=== PATIENT | female | born 1935 | race Caucasian/White ===

== ENCOUNTER 2017-02-26 02:14 | Emergency (ER) | payer MEDICARE, BC ==
[2017-02-26 02:21] VITALS: BP 129/81
[2017-02-26] MEDS ORDERED: Sodium Chloride 0.9% 10 ML Syringe FLUSH PRN (02:28)
[2017-02-26] MEDS ORDERED: Diltiazem 25 MG/5 ML SDV IVPUSH ONE (02:29)
[2017-02-26] MEDS ORDERED: Diltiazem 125 MG in Sodium Chloride 0.9% 100 ML IV SCH (02:30)
[2017-02-26] MEDS ORDERED: Sodium Chloride 0.9% 1,000 ML IV SCH (02:30)
--- NOTE | 2017-02-26 02:30 | EDM.PDOC ---
ED HPI GENERAL MEDICAL PROBLEM - General Chief Complaint: Cardiovascular Problem Stated Complaint: [facility] Time Seen by Provider: 02/26/17 02:20 Source of Information: Reports: Patient, EMS History Limitations: Reports: No Limitations - History of Present Illness INITIAL COMMENTS - FREE TEXT/NARRATIVE: The patient had a house full of people over and she was cooking and then cleaning. It was time to go to bed and she felt her heart racing. She hook herself up to a BP monitor that checks her pulse and she was in A-fib. She has a history of A-fib. She was in [place] the first time it happened for a dental appointment. She went to [facility] and she needed a stent. She is on coumadin and plavix. She has some left arm tingling and pain. She denies chest pain or shortness of breath. She is not lightheaded. She denies fever, chills, cough, abdominal pain, nausea or vomiting. Onset: Sudden Duration: Hour(s): Location: Reports: Upper Extremity, Left Quality: Reports: Ache (and tingling) Severity: Mild Improves with: Reports: None Worsens with: Reports: None Context: Reports: Activity (She was getting ready to go to bed) Associated Symptoms: Denies: Chest Pain, Cough, Fever/Chills, Headaches, Loss of Appetite, Nausea/Vomiting, Shortness of Breath - Related Data Allergies Allergy/AdvReac Type Severity Reaction Status Date / Time codeine Allergy Disorientat Verified 02/26/17 02:16 ion Sulfa (Sulfonamide Allergy Cannot Verified 02/26/17 02:16 Antibiotics) Remember Home Meds: Home Meds Alpha Lipoic Acid [Alpha-Lipoic Acid] 200 mg PO DAILY 08/10/14 [History] Amitriptyline [Elavil] 25 mg PO BEDTIME 08/10/14 [History] Aspirin 81 mg PO DAILY 08/10/14 [History] Cinnamon Bark [Cinnamon] 500 mg PO DAILY 08/10/14 [History] Fish Oil/[place]-3 Fatty Acids [Fish Oil] 1,200 mg PO DAILY 08/10/14 [History] Metoprolol Succinate [Toprol XL] 50 mg PO DAILY 08/10/14 [History] Ubidecarenone [Co Q-10] 100 mg PO DAILY 08/10/14 [History] Clopidogrel [Plavix] 75 mg PO DAILY 02/26/17 [History] Levothyroxine [Synthroid] 88 mcg PO DAILY 02/26/17 [History] Magnesium 250 mg PO DAILY 02/26/17 [History] Multivit-Min/FA/Lycopene/Lut [Centrum Silver Tablet] 1 tab PO DAILY 02/26/17 [ History] [employer] 1 tab PO DAILY 02/26/17 [History] Vit A/Vit C/Vit E/Zinc/Copper [Icaps Areds Formula] 2 tab PO DAILY 02/26/17 [ History] Warfarin [Coumadin] 5 mg PO SUTUWETHSA 02/26/17 [History] Warfarin [Coumadin] 7.5 mg PO MOFR 02/26/17 [History] atorvaSTATin [Lipitor] 10 mg PO DAILY 02/26/17 [History] Past Medical History Other Cardiovascular History: resolved after surgery Other Gastrointestinal History: during surgery intestine punctured Other OB/BYN History: x3 - Past Surgical History Other Cardiovascular Surgeries/Procedures: aortic anuerysm Social & Family History - Tobacco Use Smoking Status *Q: Former Smoker Years of Tobacco use: 15 Used Tobacco, but Quit: Yes Month Tobacco Last Used: 15 yrs ago Second Hand Smoke Exposure: No - Alcohol Use Days Per Week of Alcohol Use: 0 - Recreational Drug Use Recreational Drug Use: No ED ROS GENERAL - Review of Systems Review Of Systems: See Below Constitutional: Reports: No Symptoms HEENT: Reports: No Symptoms Respiratory: Reports: No Symptoms Cardiovascular: Reports: No Symptoms Endocrine: Reports: No Symptoms GI/Abdominal: Reports: No Symptoms : Reports: No Symptoms Musculoskeletal: Reports: Other (Left arm pain and tingling) ED EXAM, GENERAL - Physical Exam Exam: See Below Exam Limited By: No Limitations General Appearance: Alert, No Apparent Distress Ears: Normal External Exam Nose: Normal Inspection Head: Atraumatic, Normocephalic Neck: Normal Inspection Respiratory/Chest: No Respiratory Distress, Lungs Clear, Normal Breath Sounds Cardiovascular: Regular Rate, Rhythm, No Edema, No Murmur GI/Abdominal: Soft, Non-Tender, No Organomegaly, No Mass Extremities: Normal Inspection Neurological: Alert, Oriented, No Motor/Sensory Deficits Skin Exam: Warm, Dry EKG INTERPRETATION EKG Date: 02/26/17 Time: 14:25 Rhythm: A-Fib Rate (Beats/Min): 136 [place]: Normal QRS: Normal ST-T: Normal QT: Prolonged Course - Vital Signs Last Recorded V/S: Last Vital Signs Temp 96.5 F 02/26/17 02:16 Pulse 130 H 02/26/17 02:16 Resp 23 H 02/26/17 02:16 BP 129/81 02/26/17 02:16 Pulse Ox 94 L 02/26/17 02:16 - Orders/Labs/Meds Orders: Active Orders 24 hr Category Date Time Status Cardiac Monitoring [RC] . DIRECTED Care 02/26/17 02:28 Active EKG Documentation Completion [RC] STAT Care 02/26/17 02:29 Active Peripheral IV Care [RC] . DIRECTED Care 02/26/17 02:29 Active Chest 1V Frontal [CR] Stat Exams 02/26/17 02:29 Taken Diltiazem 125 mg Med 02/26/17 02:30 Active Sodium Chloride 0.9% [Normal Saline] 100 ml IV TITRATE Sodium Chloride 0.9% [Normal Saline] 1,000 ml Med 02/26/17 02:30 Active IV ASDIRECTED Sodium Chloride 0.9% [Saline Flush] Med 02/26/17 02:28 Active 10 ml FLUSH ASDIRECTED PRN Peripheral IV Insertion Adult [OM.PC] Stat Oth 02/26/17 02:28 Ordered Medication Orders Diltiazem HCl 125 mg/ Sodium (Chloride) 125 mls @ 10 mls/hr IV TITRATE JOHNNY; 10 MG/HR PRN Reason: Protocol Last Admin: 02/26/17 02:47 Dose: 10 mg/hr, 10 mls/hr Sodium Chloride (Normal Saline) 1,000 mls @ 125 mls/hr IV ASDIRECTED JOHNNY Last Admin: 02/26/17 02:36 Dose: 125 mls/hr Sodium Chloride (Saline Flush) 10 ml FLUSH ASDIRECTED PRN PRN Reason: Keep Vein Open Last Admin: 02/26/17 02:37 Dose: 10 ml Labs: Laboratory Tests 02/26/17 02/26/17 Range/Units 02:35 02:35 WBC 9.72 (3.98-10.04) K/mm3 RBC 4.87 (3.98-5.22) M/mm3 Hgb 15.1 (11.2-15.7) gm/L Hct 44.1 (34.1-44.9) % MCV 90.6 (79.4-94.8) fl MCH 31.0 (25.6-32.2) pg MCHC 34.2 (32.2-35.5) g/dl RDW Std Deviation 44.7 (36.4-46.3) fL Plt Count 228 (182-369) K/mm3 MPV 9.4 (9.4-12.3) fl Neut % (Auto) 56.8 (34.0-71.1) % Lymph % (Auto) 29.8 (19.3-51.7) % [place] % (Auto) 10.9 (4.7-12.5) % Eos % (Auto) 1.7 (0.7-5.8) Baso % (Auto) 0.5 (0.1-1.2) % Neut # (Auto) 5.51 (1.56-6.13) K/mm3 Lymph # (Auto) 2.90 (1.18-3.74) K/mm3 [place] # (Auto) 1.06 H (0.24-0.36) K/mm3 Eos # (Auto) 0.17 (0.04-0.36) K/mm3 Baso # (Auto) 0.05 (0.01-0.08) K/mm3 Sodium 146 H (136-145) mEq/L Potassium 3.6 (3.5-5.1) mEq/L Chloride 109 H (98-107) mEq/L Carbon Dioxide 24 (21-32) mEq/L Anion Gap 16.6 H (5-15) BUN 22 H (7-18) mg/dL Creatinine 1.1 H (0.55-1.02) mg/dL Est Cr Clr Drug Dosing 36.91 mL/min Estimated GFR (MDRD) 48 (>60) mL/min BUN/Creatinine Ratio 20.0 H (14-18) Glucose 105 (83-115) mg/dL Calcium 9.1 (8.5-10.1) mg/dL Total Bilirubin 1.1 H (0.2-1.0) mg/dL AST 31 (15-37) U/L ALT 31 (14-59) U/L Alkaline Phosphatase 110 (46-116) U/L Troponin I < 0.017 (0.00-0.056) ng/mL Total Protein 7.6 (6.4-8.2) g/dl Albumin 3.8 (3.4-5.0) g/dl Globulin 3.8 gm/dL Albumin/Globulin Ratio 1.0 (1-2) TSH 3rd Generation 4.080 H (0.358-3.74) uIU/mL Meds: Medications Generic Name Dose Route Start Last Admin Trade Name Freq PRN Reason Stop Dose Admin Diltiazem HCl 125 mg/ Sodium 125 mls @ 10 mls/hr 02/26/17 02:30 02/26/17 02: 47 Chloride IV 10 mg/hr TITRATE JOHNNY 10 mls/hr Protocol Administration 10 MG/HR Sodium Chloride 1,000 mls @ 125 mls/hr 02/26/17 02:30 02/26/17 02:36 Normal Saline IV 125 mls/hr ASDIRECTED JOHNNY Administration Sodium Chloride 10 ml 02/26/17 02:28 02/26/17 02:37 Saline Flush FLUSH 10 ml ASDIRECTED PRN Administration Keep Vein Open Discontinued Medications Generic Name Dose Route Start Last Admin Trade Name Freq PRN Reason Stop Dose Admin Diltiazem HCl 10 mg 02/26/17 02:29 02/26/17 02:36 Diltiazem IVPUSH 02/26/17 02:30 10 mg ONETIME ONE Administration Diltiazem HCl 60 mg 02/26/17 04:18 02/26/17 04:25 Cardizem PO 02/26/17 04:19 60 mg ONETIME ONE Administration - Re-Assessments/Exams Free Text/Narrative Re-Assessment/Exam: 02/26/17 02:37 I ordered an IV NS at 125mL/hr, EKG, CXR, labs and a cardizem bolus and drip. 02/26/17 04:12 Her CBC was negative. Her Na was a little elevated at 146. Her creatinine was a little high at 1.1. Her troponin was negative. Her TSH was slightly elevated at 4.080. Her heart rate is better in the 90s. 02/26/17 05:27 I gave her an oral cardizem here and stopped the drip. She maintained her heart rate under 100. I will discharge her home and have her go up with her metoprolol to 100mg daily. Departure - Departure Time of Disposition: 05:30 Disposition: Home, Self-Care 01 Condition: Good Clinical Impression: Atrial fibrillation with RVR Referrals: Benoit Long MD [Primary Care Provider] - 1 Week Forms: ED Department Discharge Additional Instructions: Take your medication as prescribed except take metoprolol 100mg daily. Follow up with Dr Long. Please return if you are worse. - My Orders Last 24 Hours: My Active Orders 02/26/17 02:28 Cardiac Monitoring [RC] . DIRECTED Sodium Chloride 0.9% [Saline Flush] 10 ml FLUSH ASDIRECTED PRN Peripheral IV Insertion Adult [OM.PC] Stat 02/26/17 02:29 EKG Documentation Completion [RC] STAT Peripheral IV Care [RC] . DIRECTED Chest 1V Frontal [CR] Stat 02/26/17 02:30 Diltiazem 125 mg Sodium Chloride 0.9% [Normal Saline] 100 ml IV TITRATE Sodium Chloride 0.9% [Normal Saline] 1,000 ml IV ASDIRECTED - Assessment/Plan Last 24 Hours: My Active Orders 02/26/17 02:28 Cardiac Monitoring [RC] . DIRECTED Sodium Chloride 0.9% [Saline Flush] 10 ml FLUSH ASDIRECTED PRN Peripheral IV Insertion Adult [OM.PC] Stat 02/26/17 02:29 EKG Documentation Completion [RC] STAT Peripheral IV Care [RC] . DIRECTED Chest 1V Frontal [CR] Stat 02/26/17 02:30 Diltiazem 125 mg Sodium Chloride 0.9% [Normal Saline] 100 ml IV TITRATE Sodium Chloride 0.9% [Normal Saline] 1,000 ml IV ASDIRECTED
[2017-02-26] MEDS ORDERED: Diltiazem IR 60 MG Tab PO ONE (04:18)
--- NOTE | 2017-02-27 07:59 | CR ---
Chest: Portable view of the chest was obtained. Comparison: Prior chest CT of 07/26/15 is available and chest x-ray of 01/02/15 is available Calcified breast prosthesis are identified bilaterally which are stable. Heart size and mediastinum are within normal limits for portable technique. Pulmonary vessels are slightly congested. Lungs otherwise are clear. Bony structures are grossly intact. Previous sternotomy is noted. Surgical clips are seen from prior cholecystectomy. Impression: 1. Possible mild pulmonary vascular congestion. 2. Other incidental findings. Diagnostic code #3
== END 2017-02-26 05:38 | disposition home or self-care (01) ==
LOC: SUPCPDRO 02:14 → JD.ED 02:14
DX: I48.91 Unspecified atrial fibrillation (principal); Z88.5 Allergy status to narcotic agent; Z88.2 Allergy status to sulfonamides; Z79.899 Other long term (current) drug therapy; Z79.01 Long term (current) use of anticoagulants; Z79.82 Long term (current) use of aspirin; Z87.891 Personal history of nicotine dependence
CPT/HCPCS: 36415; 71010; 80053; 84443; 84484; 85025; 93005; 96365; 96366; 96376; 99285; A9270; J3490; J7030; J7040; J7050; 93010; 99284

== ENCOUNTER 2017-03-08 09:31 | Inpatient (IN) | payer MEDICARE, BC ==
[2017-03-08] MEDS ORDERED: Morphine 2 MG/ML Syringe IVPUSH ONE (10:35)
[2017-03-08] MEDS ORDERED: Sodium Chloride 0.9% 500 ML IV ONE (10:36)
[2017-03-08] MEDS ORDERED: Iopamidol 612 MG/ML 100 ML Bottle IVPUSH ONE (10:43)
[2017-03-08] MEDS ORDERED: Sodium Chloride 0.9% 1,000 ML ONE (10:44)
--- NOTE | 2017-03-08 10:46 | EDM.PDOC ---
ED HPI GENERAL MEDICAL PROBLEM - General Chief Complaint: Back Pain or Injury Stated Complaint: FALL-BACK PAIN Time Seen by Provider: 03/08/17 10:10 - History of Present Illness INITIAL COMMENTS - FREE TEXT/NARRATIVE: 81-year-old female presents emergency room with left-sided back and rib pain. Shortly before arrival the patient fell striking a piece of furniture with her left back. She's developed significant pain aggravated by breathing and change of position she's developed significant left-sided abdominal pain. The patient currently is on Plavix and Coumadin she recently had a couple cardiac stents placed and has a history of atrial fibrillation. Patient has not developed any nausea or vomiting no fevers or chills no cough. Middle Back Pain Score (Numeric/FACES): 10 - Related Data Allergies Allergy/AdvReac Type Severity Reaction Status Date / Time codeine Allergy Disorientat Verified 03/08/17 09:50 ion Sulfa (Sulfonamide Allergy Cannot Verified 03/08/17 09:50 Antibiotics) Remember Home Meds: Home Meds Alpha Lipoic Acid [Alpha-Lipoic Acid] 200 mg PO DAILY 08/10/14 [History] Amitriptyline [Elavil] 25 mg PO BEDTIME 08/10/14 [History] Cinnamon Bark [Cinnamon] 500 mg PO DAILY 08/10/14 [History] Fish Oil/[place]-3 Fatty Acids [Fish Oil] 1,200 mg PO DAILY 08/10/14 [History] Metoprolol Succinate [Toprol XL] 100 mg PO DAILY 08/10/14 [History] Ubidecarenone [Co Q-10] 100 mg PO DAILY 08/10/14 [History] Clopidogrel [Plavix] 75 mg PO DAILY 02/26/17 [History] Levothyroxine [Synthroid] 88 mcg PO DAILY 02/26/17 [History] Magnesium 250 mg PO DAILY 02/26/17 [History] Multivit-Min/FA/Lycopene/Lut [Centrum Silver Tablet] 1 tab PO DAILY 02/26/17 [ History] [employer] 1 tab PO DAILY 02/26/17 [History] Vit A/Vit C/Vit E/Zinc/Copper [Icaps Areds Formula] 2 tab PO BID 02/26/17 [ History] Warfarin [Coumadin] 5 mg PO SUTUTHSA 02/26/17 [History] Warfarin [Coumadin] 7.5 mg PO MOWEFR 02/26/17 [History] atorvaSTATin [Lipitor] 10 mg PO DAILY 02/26/17 [History] Past Medical History HEENT History: Reports: Cataract, Macular Degeneration Cardiovascular History: Reports: Stents Other Cardiovascular History: resolved after surgery Other Gastrointestinal History: during surgery intestine punctured Genitourinary History: Reports: Urinary Incontinence 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: Other OB/BYN History: x3 Musculoskeletal History: Reports: Arthritis, Fibromyalgia Psychiatric History: Reports: Anxiety Endocrine/Metabolic History: Reports: Hypothyroidism - Past Surgical History HEENT Surgical History: Reports: Cataract Surgery Other HEENT Surgeries/Procedures: bi-lat Other Cardiovascular Surgeries/Procedures: aortic anuerysm GI Surgical History: Reports: Cholecystectomy Female Surgical History: Reports: Hysterectomy Social & Family History - Tobacco Use Smoking Status *Q: Never Smoker Years of Tobacco use: 15 Used Tobacco, but Quit: Yes Month Tobacco Last Used: 15 yrs ago Second Hand Smoke Exposure: No - Caffeine Use Caffeine Use: Reports: None - Alcohol Use Days Per Week of Alcohol Use: 0 - Recreational Drug Use Recreational Drug Use: No Review of Systems - Review of Systems Review Of Systems: See Below Constitutional: Reports: No Symptoms Eyes: Reports: No Symptoms Ears: Reports: No Symptoms Nose: Reports: No Symptoms Mouth/Throat: Reports: No Symptoms Respiratory: Reports: Pleuritic Chest Pain, Cough (Occasional). Denies: Wheezing, Sputum Cardiovascular: Reports: Chest Pain, Irregular Heart Rate. Denies: Edema GI/Abdominal: Reports: Abdominal Pain. Denies: Bloody Stool, Constipation, Decreased Appetite, Diarrhea, Hematemesis, Nausea, Vomiting Genitourinary: Reports: No Symptoms Musculoskeletal: Reports: Back Pain Skin: Reports: No Symptoms Neurological: Reports: No Symptoms Psychiatric: Reports: No Symptoms ED EXAM, GENERAL - Physical Exam Exam: See Below Exam Limited By: No Limitations General Appearance: Alert, Mild Distress (From the discomfort usually triggered by change of position) Head: Atraumatic, Normocephalic Neck: Normal Inspection, Supple, Non-Tender, Full Range of Motion. No: Lymphadenopathy (L), Lymphadenopathy (R) Respiratory/Chest: No Respiratory Distress, Lungs Clear, Normal Breath Sounds Cardiovascular: Regular Rate, Rhythm, No Edema, No Murmur, Other (On telemetry she has some sinus irregularity but is in a sinus driven rhythm) GI/Abdominal: Other (Bowel sounds slightly diminished she has pretty significant left-sided abdominal discomfort no bruising or signs of external trauma. No apparent rebound or guarding) Back Exam: Normal Inspection. No: CVA Tenderness (L), CVA Tenderness (R), Vertebral Tenderness Psychiatric: Normal Affect, Normal Mood Skin Exam: Warm, Dry, Intact Lymphatic: No Adenopathy EKG INTERPRETATION EKG Date: 03/08/17 Rhythm: Other (Sinus driven with sinus irregularity) [place]: Normal P-Wave: Absent (First-degree AV block) QRS: Normal ST-T: Other (nonspecific nondiagnostic changes) QT: Normal Comparison: NA - No Prior EKG (Other than rhythm abnormalities prior atrial fibrillation no significant changes noted) EKG Interpretation Comments: Abnormal first-degree AV block sinus driven dysrhythmia Course - Vital Signs Last Recorded V/S: Last Vital Signs Temp 36.3 C 03/08/17 09:42 Pulse 63 03/08/17 09:42 Resp 16 03/08/17 09:42 BP 142/86 H 03/08/17 09:42 Pulse Ox 96 03/08/17 09:42 - Orders/Labs/Meds Orders: Active Orders 24 hr Category Date Time Status URINALYSIS W/MICROSCOPIC [UA W/MICROSCOPIC] [URIN] Stat Lab 03/08/17 11:44 Uncollected Sodium Chloride 0.9% [Saline Flush] Med 03/08/17 10:43 Active 10 ml FLUSH ONETIME PRN Medication Orders Sodium Chloride (Saline Flush) 10 ml FLUSH ONETIME PRN PRN Reason: IV FLUSH Last Admin: 03/08/17 11:23 Dose: 10 ml Admin: 03/08/17 10:59 Dose: 10 ml Labs: Laboratory Tests 03/08/17 03/08/17 03/08/17 Range/Units 09:00 09:50 09:50 WBC 8.30 (3.98-10.04) K/mm3 RBC 4.92 (3.98-5.22) M/mm3 Hgb 14.9 (11.2-15.7) gm/L Hct 44.6 (34.1-44.9) % MCV 90.7 (79.4-94.8) fl MCH 30.3 (25.6-32.2) pg MCHC 33.4 (32.2-35.5) g/dl RDW Std Deviation 44.2 (36.4-46.3) fL Plt Count 239 (182-369) K/mm3 MPV 9.7 (9.4-12.3) fl Neutrophils % (Manual) 50 (40-60) % Band Neutrophils % 0 (0-10) % Lymphocytes % (Manual) 41 H (20-40) % Atypical Lymphs % 0 % Monocytes % (Manual) 7 (2-10) % Eosinophils % (Manual) 1 (0.7-5.8) % Basophils % (Manual) 1 (0.1-1.2) Platelet Estimate Adequate RBC Morph Comment Normal PT 20.6 H (8.0-13.0) SECONDS INR 1.82 APTT 34 (22-36) SECONDS Sodium (136-145) mEq/L Potassium (3.5-5.1) mEq/L Chloride (98-107) mEq/L Carbon Dioxide (21-32) mEq/L Anion Gap (5-15) BUN (7-18) mg/dL Creatinine (0.55-1.02) mg/dL Est Cr Clr Drug Dosing mL/min Estimated GFR (MDRD) (>60) mL/min BUN/Creatinine Ratio (14-18) Glucose (83-115) mg/dL Calcium (8.5-10.1) mg/dL Total Bilirubin (0.2-1.0) mg/dL Direct Bilirubin 0.30 H (0.0-0.2) mg/dl AST (15-37) U/L ALT (14-59) U/L Alkaline Phosphatase (46-116) U/L Troponin I (0.00-0.056) ng/mL Total Protein (6.4-8.2) g/dl Albumin (3.4-5.0) g/dl Globulin gm/dL Albumin/Globulin Ratio (1-2) 03/08/17 Range/Units 09:50 WBC (3.98-10.04) K/mm3 RBC (3.98-5.22) M/mm3 Hgb (11.2-15.7) gm/L Hct (34.1-44.9) % MCV (79.4-94.8) fl MCH (25.6-32.2) pg MCHC (32.2-35.5) g/dl RDW Std Deviation (36.4-46.3) fL Plt Count (182-369) K/mm3 MPV (9.4-12.3) fl Neutrophils % (Manual) (40-60) % Band Neutrophils % (0-10) % Lymphocytes % (Manual) (20-40) % Atypical Lymphs % % Monocytes % (Manual) (2-10) % Eosinophils % (Manual) (0.7-5.8) % Basophils % (Manual) (0.1-1.2) Platelet Estimate RBC Morph Comment PT (8.0-13.0) SECONDS INR APTT (22-36) SECONDS Sodium 144 (136-145) mEq/L Potassium 4.0 (3.5-5.1) mEq/L Chloride 109 H (98-107) mEq/L Carbon Dioxide 27 (21-32) mEq/L Anion Gap 12.0 (5-15) BUN 20 H (7-18) mg/dL Creatinine 1.0 (0.55-1.02) mg/dL Est Cr Clr Drug Dosing 40.60 mL/min Estimated GFR (MDRD) 53 (>60) mL/min BUN/Creatinine Ratio 20.0 H (14-18) Glucose 98 (83-115) mg/dL Calcium 8.9 (8.5-10.1) mg/dL Total Bilirubin 2.1 H (0.2-1.0) mg/dL Direct Bilirubin (0.0-0.2) mg/dl AST 31 (15-37) U/L ALT 29 (14-59) U/L Alkaline Phosphatase 74 (46-116) U/L Troponin I < 0.017 (0.00-0.056) ng/mL Total Protein 7.4 (6.4-8.2) g/dl Albumin 3.7 (3.4-5.0) g/dl Globulin 3.7 gm/dL Albumin/Globulin Ratio 1.0 (1-2) Meds: Medications Generic Name Dose Route Start Last Admin Trade Name Freq PRN Reason Stop Dose Admin Sodium Chloride 10 ml 03/08/17 10:43 03/08/17 11:23 Saline Flush FLUSH 10 ml ONETIME PRN Administration IV FLUSH Discontinued Medications Generic Name Dose Route Start Last Admin Trade Name Freq PRN Reason Stop Dose Admin Hydromorphone HCl 1 mg 03/08/17 11:06 03/08/17 11:10 Dilaudid IVPUSH 03/08/17 11:07 1 mg ONETIME ONE Administration Hydromorphone HCl Confirm 03/08/17 11:12 03/08/17 11:16 Dilaudid Administered 03/08/17 11:13 Not Given Dose 1 mg .ROUTE .STK-MED ONE Sodium Chloride 500 mls @ 250 mls/hr 03/08/17 10:36 03/08/17 10:42 Normal Saline IV 03/08/17 12:35 250 mls/hr .BOLUS ONE Administration Sodium Chloride Confirm 03/08/17 10:44 03/08/17 10:43 Normal Saline Administered 03/08/17 10:45 Not Given Dose 1,000 mls @ as directed .ROUTE .STK-MED ONE Iopamidol 100 ml 03/08/17 10:43 03/08/17 11:23 Isovue-300 (61%) IVPUSH 03/08/17 10:44 100 ml ONETIME ONE Administration Morphine Sulfate 2 mg 03/08/17 10:35 03/08/17 10:40 Morphine IVPUSH 03/08/17 10:36 2 mg ONETIME ONE Administration - Re-Assessments/Exams Free Text/Narrative Re-Assessment/Exam: 03/08/17 12:38 Laboratory evaluation is nondiagnostic of concern is mildly elevated bilirubin at 2.1 she has no associated bandemia INR is slightly subtherapeutic. Because the patient's symptoms x-ray examination was deferred the patient was sent to CT which is concerning for rib fractures on the left 7 through 10 and possibly to the patient does not have tenderness over the upper chest. At her age and with at least 4 rib fractures the patient should probably be watched closely to be certain she is maintaining her O2 saturation and has adequate pain control. She will need supervision with incentive spirometry and deep breathing exercises. 03/08/17 12:43 We believe we will have a bed available for the patient in another hour or so. Case discussed with Dr. Malik or hospitalist. Departure - Departure Time of Disposition: 12:44 Disposition: Refer to Observation Clinical Impression: Multiple fractures of ribs, left side, initial encounter for closed fracture - Discharge Information Referrals: Benoit Long MD [Primary Care Provider] - Forms: ED Department Discharge - My Orders Last 24 Hours: My Active Orders 03/08/17 10:43 Sodium Chloride 0.9% [Saline Flush] 10 ml FLUSH ONETIME PRN 03/08/17 11:44 URINALYSIS W/MICROSCOPIC [UA W/MICROSCOPIC] [URIN] Stat - Assessment/Plan Last 24 Hours: My Active Orders 03/08/17 10:43 Sodium Chloride 0.9% [Saline Flush] 10 ml FLUSH ONETIME PRN 03/08/17 11:44 URINALYSIS W/MICROSCOPIC [UA W/MICROSCOPIC] [URIN] Stat
[2017-03-08] MEDS: Sodium Chloride 0.9% 10 ML Syringe FLUSH PRN ×2 (10:59→11:23)
[2017-03-08] MEDS ORDERED: HYDROmorphone 1 MG/ML Syringe IVPUSH ONE (11:06)
[2017-03-08] MEDS ORDERED: HYDROmorphone 1 MG/ML Syringe ONE (11:12)
--- NOTE | 2017-03-08 11:54 | CT ---
CT chest Technique: Multiple axial sections through the chest were obtained. Intravenous contrast was utilized. Comparison: Prior noncontrast CT chest exam of 07/26/15. Findings: Stable calcified breast prosthesis are noted. Diffuse atherosclerotic calcification is noted within the aorta. Aorta is slightly ectatic but stable from prior CT exam. Mediastinum and hilar regions are unremarkable. Coronary artery calcification is seen. No pericardial thickening is seen. Lungs show nothing acute. Parenchymal fibrosis is noted within the left lung base which is more prominent than on prior study. Minimal pleural thickening is seen within the left lung base which is likely chronic. Scattered degenerative endplate spurring is noted within the spine. Findings suspicious for nondisplaced fracture within the left 2nd rib. Fracture also noted within the lateral left 7th rib as well as mildly displaced fracture within the lateral left 8th, 9th ribs as well as 10th ribs. No right-sided rib fractures are seen. No pneumothorax is identified. Impression: 1. Multiple left-sided rib fractures. 2. Other incidental findings with no other acute abnormality being seen. Diagnostic code #3 CT abdomen and pelvis Technique: Multiple axial sections were obtained from above the dome of the diaphragm inferiorly through the pubic symphysis. Intravenous contrast was utilized. No oral contrast has been given. Comparison: Prior noncontrast CT abdomen and pelvis study of 01/07/15 performed as a ureteral stone protocol. Contrast-enhanced CT abdomen and pelvis of 01/03/15 is also available. Findings: Mild intrahepatic and extrahepatic biliary duct dilatation is seen which is stable from prior exam. This is felt to be residual from prior cholecystectomy. No focal abnormality is otherwise seen within the liver. Small hiatal hernia is seen. Small calcification is seen within the dome of the liver most likely pleural in location. Spleen appears within normal limits. Adrenal glands show no nodule. Atrophy is seen of the inferior pole of the right kidney. Several cysts are noted within the left kidney with largest measuring 1.2 cm. Aortoiliac vessels show diffuse atherosclerotic calcification. Pancreas shows no focal abnormality. No retroperitoneal adenopathy or mesenteric abnormalities are seen. Appendix not visualized with certainty. No pelvic mass or adenopathy is seen. No free fluid or inflammatory change is seen. Bone window settings show scattered degenerative changes throughout the spine. No pelvic fracture is seen. Impression: 1. Incidental findings. Nothing acute is seen on CT study of the abdomen and pelvis. Diagnostic code #2
[2017-03-08] MEDS: Morphine 2 MG/ML Syringe IVPUSH ONE ×2 (17:01→18:05)
[2017-03-08] MEDS: Acetaminophen/HYDROcodone 325-5 MG Tab PO PRN ×2 (17:17→21:25)
--- NOTE | 2017-03-08 17:50 | PCM.HP ---
H&P History of Present Illness - General Date of Service: 03/08/17 Admit Problem/Dx: Admission Diagnosis/Problem Admission Diagnosis/Problem Rib injury Source of Information: Patient, Provider History Limitations: Reports: No Limitations - History of Present Illness Initial Comments - Free Text/Narative: 81 year old female s/p fall, hitting furniture with her back and left side. She felt dizzy after taking a hand full of her cardiac medication on an empty stomach. She has had a radiographic study that documents multiple left sided rib fractures. She is on coumadin as well as plavix for coronary stents. The patient stated that her metoprolol had been recently increased. She has had no N/V, SOB, CP, orthopnea, PND, syncopal/presyncopal episodes. The patient will be admitted to obs with telemetry. Onset of Symptoms: Reports: Sudden Symptom Onset Date: 03/08/17 Duration of Symptoms: Reports: Hour(s): Location: Reports: Chest Quality: Reports: Stabbing, Throbbing Severity: Moderate Improves with: Reports: Medication Worsens with: Reports: Movement Associated Symptoms: Reports: Chest Pain, Weakness Middle Back Pain Score (Numeric/FACES): 6 - Related Data Allergies/Adverse Reactions: Allergies Allergy/AdvReac Type Severity Reaction Status Date / Time codeine Allergy Disorientat Verified 03/08/17 16:53 ion Sulfa (Sulfonamide Allergy Cannot Verified 03/08/17 16:53 Antibiotics) Remember Home Medications: Home Meds Alpha Lipoic Acid [Alpha-Lipoic Acid] 200 mg PO DAILY 08/10/14 [History] Amitriptyline [Elavil] 25 mg PO BEDTIME 08/10/14 [History] Cinnamon Bark [Cinnamon] 500 mg PO DAILY 08/10/14 [History] Fish Oil/[place]wood-3 Fatty Acids [Fish Oil] 1,200 mg PO DAILY 08/10/14 [History] Metoprolol Succinate [Toprol XL] 100 mg PO DAILY 08/10/14 [History] Ubidecarenone [Co Q-10] 100 mg PO DAILY 08/10/14 [History] Clopidogrel [Plavix] 75 mg PO DAILY 02/26/17 [History] Levothyroxine [Synthroid] 88 mcg PO DAILY 02/26/17 [History] Magnesium 250 mg PO DAILY 02/26/17 [History] Multivit-Min/FA/Lycopene/Lut [Centrum Silver Tablet] 1 tab PO DAILY 02/26/17 [ History] Lei Colon Health 1 tab PO DAILY 02/26/17 [History] Vit A/Vit C/Vit E/Zinc/Copper [Icaps Areds Formula] 2 tab PO BID 02/26/17 [ History] Warfarin [Coumadin] 5 mg PO SUTUTHSA 02/26/17 [History] Warfarin [Coumadin] 7.5 mg PO MOWEFR 02/26/17 [History] atorvaSTATin [Lipitor] 10 mg PO DAILY 02/26/17 [History] Past Medical History HEENT History: Reports: Cataract, Macular Degeneration Cardiovascular History: Reports: Afib, [place], Stents Other Cardiovascular History: resolved after surgery; end of december of last year Respiratory History: Reports: None Other Gastrointestinal History: during surgery intestine punctured Genitourinary History: Reports: Urinary Incontinence [employer] History: Reports: Other OB/BYN History: x3 Musculoskeletal History: Reports: Arthritis, Fracture, Fibromyalgia Other Musculoskeletal History: hx of Fractured left side rib Neurological History: Reports: None Psychiatric History: Reports: Anxiety Endocrine/Metabolic History: Reports: Hypothyroidism Hematologic History: Reports: None Immunologic History: Reports: None Oncologic (Cancer) History: Reports: None Dermatologic History: Reports: None - Infectious Disease History Infectious Disease History: Reports: Chicken Pox - Past Surgical History Head Surgeries/Procedures: Reports: None HEENT Surgical History: Reports: Cataract Surgery Other HEENT Surgeries/Procedures: bi-lat Cardiovascular Surgical History: Reports: Other (See Below) Other Cardiovascular Surgeries/Procedures: aortic anuerysm GI Surgical History: Reports: Cholecystectomy Female Surgical History: Reports: Hysterectomy Endocrine Surgical History: Reports: None Neurological Surgical History: Reports: None Musculoskeletal Surgical History: Reports: None Social & Family History - Family History Family Medical History: Noncontributory - Tobacco Use Smoking Status *Q: Former Smoker Years of Tobacco use: 12 Packs/Tins Daily: 1 Used Tobacco, but Quit: Yes Month Tobacco Last Used: 20 years ago Second Hand Smoke Exposure: No - Caffeine Use Caffeine Use: Reports: None - Alcohol Use Days Per Week of Alcohol Use: 0 - Recreational Drug Use Recreational Drug Use: No H&P Review of Systems - Review of Systems: Review Of Systems: See Below General: Reports: Weakness, Decreased Appetite HEENT: Reports: No Symptoms Pulmonary: Reports: Shortness of Breath, Pleuritic Chest Pain Cardiovascular: Reports: No Symptoms Gastrointestinal: Reports: Abdominal Pain, Decreased Appetite Genitourinary: Reports: No Symptoms Musculoskeletal: Reports: Back Pain, Other (left sided rib pain) Skin: Reports: No Symptoms Psychiatric: Reports: No Symptoms Neurological: Reports: No Symptoms Hematologic/Lymphatic: Reports: No Symptoms Immunologic: Reports: No Symptoms Exam - Exam Exam: See Below - Vital Signs Vital Signs: Last Vital Signs Temp 36.8 C 03/08/17 15:12 Pulse 55 L 03/08/17 15:12 Resp 20 03/08/17 15:12 BP 127/59 L 03/08/17 15:12 Pulse Ox 99 03/08/17 15:12 Weight: 84.459 kg - Exam Quality Assessment: Supplemental Oxygen, DVT Prophylaxis General: Alert, Oriented, Cooperative, Mild Distress HEENT: Conjunctiva Clear, EOMI, Nares Patent, Normal Nasal Septum, Pupils Equal , Pupils Reactive, PERRLA Neck: Supple, Trachea Midline Lungs: Normal Respiratory Effort, Decreased Breath Sounds Cardiovascular: Regular Rate GI/Abdominal Exam: Normal Bowel Sounds, Soft, Non-Tender, No Organomegaly, No Distention (Female) Exam: Deferred Rectal (Female) Exam: Deferred Back Exam: Normal Inspection, Decreased Range of Motion, Other (rib pain) Extremities: Normal Inspection, Arm Pain, Limited Range of Motion (left arm) Skin: Warm Neurological: Cranial Nerves Intact Neuro Extensive - Mental Status: Alert, Oriented x3 Neuro Extensive - Motor, Sensory, Reflexes: CN II-XII Intact Psychiatric: Alert, Normal Affect, Normal Mood - Patient Data Result Diagrams: 03/08/17 09:50 03/08/17 09:50 *Q Meaningful Use (ADM) - VTE *Q VTE Criteria *Q: - Stroke *Q Stroke Criteria *Q: - AMI *Q AMI Criteria *Q: - Problem List (1) Multiple fractures of ribs, left side, initial encounter for closed fracture SNOMED Code(s): 25671679 ICD Code: S22.42XA - MULTIPLE FRACTURES OF RIBS, LEFT SIDE, INIT FOR CLOS FX Status: Acute Current Visit: Yes (2) Abdominal pain SNOMED Code(s): 46581444 ICD Code: R10.9 - UNSPECIFIED ABDOMINAL PAIN Status: Acute Current Visit : No Qualifiers: Abdominal location: epigastric Qualified Code(s): R10.13 - Epigastric pain (3) Atrial fibrillation with RVR SNOMED Code(s): 523062159043493 ICD Code: I48.91 - UNSPECIFIED ATRIAL FIBRILLATION Status: Acute Current Visit: No (4) Chest pain SNOMED Code(s): 86494669 ICD Code: R07.9 - CHEST PAIN, UNSPECIFIED Status: Acute Current Visit: No Qualifiers: Chest pain type: unspecified Qualified Code(s): R07.9 - Chest pain, unspecified (5) Hypertension SNOMED Code(s): 23614316 ICD Code: I10 - ESSENTIAL (PRIMARY) HYPERTENSION Status: Acute Current Visit: No Qualifiers: Hypertension type: essential hypertension Qualified Code(s): I10 - Essential (primary) hypertension Problem List Initiated/Reviewed/Updated: Yes Orders Last 24hrs: Active Orders 24 hr Category Date Time Status Acetaminophen/HYDROcodone [[place]resto 325-5 MG] Med 03/08/17 17:10 Active 1 tab PO Q4H PRN Resuscitation Status Routine Resus Stat 03/08/17 16:39 Ordered Medication Orders Hydrocodone Bitart/Acetaminophen ([place] 325-5 Mg) 1 tab PO Q4H PRN PRN Reason: Pain Last Admin: 03/08/17 17:17 Dose: 1 tab Sodium Chloride (Saline Flush) 10 ml FLUSH ONETIME PRN PRN Reason: IV FLUSH Last Admin: 03/08/17 11:23 Dose: 10 ml Admin: 03/08/17 10:59 Dose: 10 ml Assessment/Plan Comment:: Impression: S/P fall with multiple rib fractures Recent increase in Metoprolol, dizziness when taken on an empty stomach A Fib on coumadin with out overt signs of hematoma Chronic CAD/PCI on Plavix HTN Macular Degeneration Fibromyalgia Hypothyroidism Aortic Aneursym Plan: Gen Surg consult re: rib fx, follow as needed for PTX Pain mgt narcotic/non-narcotics PT/OT consults CSM consult Home meds Daily meds DVT/GI prophylaxis Adjustment of medical regimen to avoid hypotension Admit to obs with telemetry
[2017-03-08] MEDS ORDERED: HYDROmorphone 1 MG/ML Syringe IVPUSH PRN (17:56)
[2017-03-08] MEDS ORDERED: fentaNYL 12 MCG/HR Transdermal Patch TRDERM SCH (18:00)
[2017-03-08] MEDS ORDERED: Lactated Ringers 1,000 ML IV SCH (18:00)
[2017-03-08] MEDS: Ketorolac 15 MG/ML SDV IVPUSH SCH (18:13)
[2017-03-08] MEDS: Ondansetron 4 MG/2 ML SDV IVPUSH PRN (18:38)
[2017-03-08] MEDS: Warfarin 5 MG Tab PO SCH (18:39)
[2017-03-08] MEDS ORDERED: Scopolamine 1 MG Transdermal Patch TRDERM PRN (19:30)
[2017-03-08] MEDS: Amitriptyline 25 MG Tab PO SCH (21:25)
[2017-03-08] MEDS: Multivitamins with Minerals/Folic Acid/Lutein/Zeaxanth Tab PO SCH (21:25)
[2017-03-09] MEDS: Ketorolac 15 MG/ML SDV IVPUSH SCH ×3 (03:22→17:36)
[2017-03-09] MEDS: Acetaminophen/HYDROcodone 325-5 MG Tab PO PRN ×3 (03:23→21:45)
[2017-03-09] MEDS: Levothyroxine 88 MCG Tab PO SCH (06:30)
--- NOTE | 2017-03-09 07:21 | CONS ---
CONSULTING PHYSICIAN: Kayode Goss MD DATE OF CONSULTATION: 03/08/2017 HISTORY OF PRESENT ILLNESS: Nishi Soares is an 81-year-old female who came into the emergency room around 10 o'clock after having fallen backwards onto her left posterior back. She was short of breath and in pain and a CT scan was then performed showing fractures of ribs, nondisplaced fracture of the left 2nd rib, 7th rib; mildly displaced fractures, 8th, 9th and 10th rib. There is no pneumothorax or hemothorax, although the patient is on Coumadin with a normal INR and on Plavix. The patient has pain from the ribs. She has had rib fractures in the past. She has comorbidities of atrial fibrillation and last year had heart stents placed and is on Plavix. She has also had about 10 years ago surgery on her, which lead to perforation of the intestine, which was treated successfully. She has some urinary incontinence, arthralgias, hypothyroidism, anxiety, macular degeneration, coronary artery disease with stents, and hypothyroidism treated. She also has had an aortic arch aneurysm, which was repaired in [facility], history of cholecystectomy and hysterectomy. She has never smoked. Does not drink. REVIEW OF SYSTEMS: Does have chest pain. Does have a little shortness of breath, but no chest pain or cardiac pain. She has no nausea, vomiting, indigestion, or rectal bleeding. No urinary problems other than some incontinence. FAMILY HISTORY: Not known. MEDICATIONS: Per medication reconciliation form. ALLERGIES: She has allergies to sulfa and codeine. PHYSICAL EXAMINATION: VITAL SIGNS: Blood pressure of 142/86, respirations about 16 to 20, pulse at 99. HEENT: Eyes: Sclerae white. Extraocular muscle motion normal. Oral Cavity: Healthy mucous membrane. NECK: Supple. No nodes. No thyromegaly. LUNGS: Clear on both sides. There is bruising on the left posterior with pain on palpation. ABDOMEN: Soft. EXTREMITIES: Upper and lower extremities: No angulation deformities. NEUROLOGIC: Normal 3 through 12 intact. No sensorineural deficit. ASSESSMENT: Multiple medical problems, on anticoagulation; rib fractures, some mild displacement 4 ribs, maybe 5 on the left. PLAN: Pain medication and incentive spirometer and flutter valve and cough and deep breathing. MMODAL /[id number]
[2017-03-09] MEDS ORDERED: Enoxaparin 40 MG/0.4 ML Syringe SUBCUT SCH (09:00)
[2017-03-09] MEDS ORDERED: Metoprolol Succinate 50 MG Tab.ER PO SCH (09:00)
--- NOTE | 2017-03-09 09:06 | CR ---
Chest: Portable view of the chest was obtained. Comparison: Prior chest x-ray of 02/26/17. Calcified breast prosthesis are incidentally noted. Prior sternotomy is noted. Rib fractures seen on prior chest CT of 03/08/17 are poorly seen on plain film exam. Heart size and mediastinum are within normal limits. Lungs are clear. Pulmonary vessels are slightly increased which are stable. Bony structures are osteopenic. Surgical clips are seen within the upper right abdomen. Impression: 1. Stable findings as noted above. Nothing acute is seen. Diagnostic code #2
[2017-03-09] MEDS: Multivitamins with Minerals/Folic Acid/Lutein/Zeaxanth Tab PO SCH ×2 (09:44→21:47)
[2017-03-09] MEDS: Clopidogrel 75 MG Tab PO SCH (09:44)
[2017-03-09] MEDS: UBIDECARENONE 100 MG PO SCH (09:51)
[2017-03-09] MEDS: Sodium Chloride 0.9% 10 ML Syringe FLUSH PRN (10:03)
[2017-03-09] MEDS ORDERED: Polyethylene Glycol 3350 Powder 17 GM Packet PO PRN (14:19)
--- NOTE | 2017-03-09 15:04 | PCM.PN ---
- General Info Date of Service: 03/09/17 Admission Dx/Problem (Free Text): Admission Diagnosis/Problem Admission Diagnosis/Problem Rib injury Subjective Update: In to see Nishi. She is sitting on the side of the bed. She has no complaints at this time. Functional Status: Reports: Pain Controlled, Tolerating Diet, Ambulating, Urinating, Incentive Spirometry. Denies: New Symptoms - Review of Systems General: Reports: Weakness. Denies: Fever, Fatigue, Malaise, Chills HEENT: Reports: No Symptoms. Denies: Headaches, Sinus Congestion, Sore Throat Pulmonary: Reports: Pleuritic Chest Pain. Denies: Shortness of Breath, Cough, Sputum Cardiovascular: Reports: No Symptoms. Denies: Chest Pain, Palpitations, Dyspnea on Exertion, Orthopnea, Edema Gastrointestinal: Reports: No Symptoms. Denies: Abdominal Pain, Constipation, Diarrhea, Nausea, Vomiting Genitourinary: Reports: No Symptoms Musculoskeletal: Reports: Back Pain, Other (left - rib pain) Skin: Reports: No Symptoms Neurological: Reports: No Symptoms Psychiatric: Reports: No Symptoms - Patient Data Vitals - Most Recent: Last Vital Signs Temp 97.9 F 03/09/17 12:05 Pulse 55 L 03/09/17 12:05 Resp 18 03/09/17 12:05 BP 124/50 L 03/09/17 12:05 Pulse Ox 95 03/09/17 12:05 Weight - Most Recent: 186 lb 3.2 oz Med Orders - Current: Current Medications Hydrocodone Bitart/Acetaminophen ([place] 325-5 Mg) 1 tab PO Q4H PRN PRN Reason: Pain Last Admin: 03/09/17 06:30 Dose: 1 tab Amitriptyline HCl (Elavil) 25 mg PO BEDTIME [facility] Last Admin: 03/08/17 21:25 Dose: 25 mg Clopidogrel Bisulfate (Plavix) 75 mg PO DAILY [facility] Last Admin: 03/09/17 09:44 Dose: 75 mg Docusate Sodium (Colace) 100 mg PO BID [facility] Hydromorphone HCl (Dilaudid) 1 mg IVPUSH Q2H PRN PRN Reason: Pain Ketorolac Tromethamine (Toradol) 15 mg IVPUSH Q8H [facility] Stop: 03/10/17 10:01 Last Admin: 03/09/17 09:54 Dose: 15 mg Levothyroxine Sodium (Synthroid) 88 mcg PO ACBREAKFAST [facility] Last Admin: 03/09/17 06:30 Dose: 88 mcg Metoprolol Succinate (Toprol Xl) 100 mg PO DAILY [facility] Last Admin: 03/09/17 09:49 Dose: 100 mg Miscellaneous Information (Remove Patch) 1 ea TRDERM Q72H [facility] Ondansetron HCl (Zofran) 4 mg IVPUSH Q8H PRN PRN Reason: Nausea/Vomiting Last Admin: 03/08/17 18:38 Dose: 4 mg Ptom: Ubidecarenone (100mg (Coenzyme-Q)) 1 each PO DAILY [facility] Last Admin: 03/09/17 09:51 Dose: 1 each Polyethylene Glycol (Miralax) 17 gm PO BEDTIME PRN PRN Reason: Constipation Simvastatin (Zocor) 10 mg PO BEDTIME [facility] Sodium Chloride (Saline Flush) 10 ml FLUSH ONETIME PRN PRN Reason: IV FLUSH Last Admin: 03/09/17 10:03 Dose: 10 ml Vit A/Vit C/Vit E/Selen/Cu/Zn/Lutei (Icaps Mv) 2 tab PO BID [facility] Last Admin: 03/09/17 09:44 Dose: 2 tab Warfarin Sodium (Coumadin) 7.5 mg PO [email or web address]@1800 [facility] Warfarin Sodium (Coumadin) 5 mg PO [email or web address]@1800 [facility] Last Admin: 03/08/17 18:39 Dose: 5 mg Discontinued Medications Enoxaparin Sodium (Lovenox) 40 mg SUBCUT DAILY [facility] Last Admin: 03/09/17 10:01 Dose: Not Given Fentanyl (Duragesic) 12 mcg TRDERM Q72H [facility] Last Admin: 03/08/17 18:47 Dose: 12 mcg Hydromorphone HCl (Dilaudid) 1 mg IVPUSH ONETIME ONE Stop: 03/08/17 11:07 Last Admin: 03/08/17 11:10 Dose: 1 mg Hydromorphone HCl (Dilaudid) Confirm Administered Dose 1 mg .ROUTE .STK-MED ONE Stop: 03/08/17 11:13 Last Admin: 03/08/17 11:16 Dose: Not Given Hydromorphone HCl (Dilaudid) 1 mg IVPUSH Q6H PRN PRN Reason: Pain (severe 7-10) Last Admin: 03/08/17 18:19 Dose: 1 mg Sodium Chloride (Normal Saline) 500 mls @ 250 mls/hr IV .BOLUS ONE Stop: 03/08/17 12:35 Last Admin: 03/08/17 10:42 Dose: 250 mls/hr Sodium Chloride (Normal Saline) Confirm Administered Dose 1,000 mls @ as directed .ROUTE .STK-MED ONE Stop: 03/08/17 10:45 Last Admin: 03/08/17 10:43 Dose: Not Given Lactated Ringer's (Ringers, Lactated) 1,000 mls @ 75 mls/hr IV ASDIRECTED JOHNNY Stop: 03/09/17 06:00 Last Admin: 03/08/17 20:00 Dose: 75 mls/hr Iopamidol (Isovue-300 (61%)) 100 ml IVPUSH ONETIME ONE Stop: 03/08/17 10:44 Last Admin: 03/08/17 11:23 Dose: 100 ml Morphine Sulfate (Morphine) 2 mg IVPUSH ONETIME ONE Stop: 03/08/17 10:36 Last Admin: 03/08/17 10:40 Dose: 2 mg Morphine Sulfate (Morphine) 2 mg IVPUSH ONETIME ONE Stop: 03/08/17 16:49 Last Admin: 03/08/17 18:05 Dose: Not Given Scopolamine (Scopolamine) 1 each TRDERM Q72H PRN PRN Reason: Nausea - Exam Quality Assessment: Supplemental Oxygen (2L), DVT Prophylaxis General: Alert, Oriented, Cooperative, No Acute Distress HEENT: Pupils Equal, Pupils Reactive, EOMI, Mucous Membr. Moist/Ravena Neck: Supple, Trachea Midline, No JVD, No Thyromegaly Lungs: Clear to Auscultation, Normal Respiratory Effort, Decreased Breath Sounds. No: Rhonchi, Rub, Stridor, Wheezing Cardiovascular: Regular Rate, Regular Rhythm, No Murmurs GI/Abdominal Exam: Normal Bowel Sounds, Soft, Non-Tender, No Organomegaly, No Distention, No Abnormal Bruit, No Mass, Pelvis Stable (Female) Exam: Deferred Back Exam: Normal Inspection, Decreased Range of Motion (due to pain ), Other ( left sided bruising ) Extremities: Normal Inspection, Normal Range of Motion, Non-Tender, No Pedal Edema, Normal Capillary Refill, Other (scattered bruising to right arm ) Peripheral Pulses: 2+: Radial (L), Radial (R), Posterior Tibial (L), Posterior Tibial (R), Dorsalis Pedis (L), Dorsalis Pedis (R) Skin: Warm, Dry, Intact Neurological: No New Focal Deficit Psy/Mental Status: Alert, Normal Affect, Normal Mood - Problem List & Annotations (1) Multiple fractures of ribs, left side, initial encounter for closed fracture SNOMED Code(s): 17165471 Code(s): S22.42XA - MULTIPLE FRACTURES OF RIBS, LEFT SIDE, INIT FOR CLOS FX Status: Acute Priority: High Current Visit: Yes (2) Abdominal pain SNOMED Code(s): 15913070 Code(s): R10.9 - UNSPECIFIED ABDOMINAL PAIN Status: Resolved Priority: Low Current Visit: No Qualifiers: Abdominal location: epigastric Qualified Code(s): R10.13 - Epigastric pain (3) Atrial fibrillation with RVR SNOMED Code(s): 139882442236229 Code(s): I48.91 - UNSPECIFIED ATRIAL FIBRILLATION Status: Chronic Priority: Low Current Visit: No (4) Chest pain SNOMED Code(s): 77145486 Code(s): R07.9 - CHEST PAIN, UNSPECIFIED Status: Acute Priority: Medium Current Visit: No Qualifiers: Chest pain type: unspecified Qualified Code(s): R07.9 - Chest pain, unspecified (5) Hypertension SNOMED Code(s): 03690759 Code(s): I10 - ESSENTIAL (PRIMARY) HYPERTENSION Status: Chronic Priority : Medium Current Visit: No Qualifiers: Hypertension type: essential hypertension Qualified Code(s): I10 - Essential (primary) hypertension - Problem List Review Problem List Initiated/Reviewed/Updated: Yes - Plan Plan:: Impression: S/P fall with multiple rib fractures Recent increase in Metoprolol, dizziness when taken on an empty stomach - Will switch to metoprolol tartrate BID A Fib on coumadin with out overt signs of hematoma Chronic CAD/PCI on Plavix HTN Macular Degeneration Fibromyalgia Hypothyroidism Aortic Aneursym Plan: Gen Surg consult re: rib fx, follow as needed for PTX Pain mgt narcotic/non-narcotics PT/OT consults CSM consult Home meds Daily meds DVT/GI prophylaxis Adjustment of medical regimen to avoid hypotension Admit to obs with telemetry - upgraded to inpatient O2 as needed
[2017-03-09] MEDS ORDERED: Warfarin 2.5 MG Tab PO SCH (18:00)
[2017-03-09] MEDS: Docusate Sodium 100 MG Cap PO SCH (21:47)
[2017-03-09] MEDS: Amitriptyline 25 MG Tab PO SCH (21:47)
[2017-03-09] MEDS: Simvastatin 10 MG Tab PO SCH (21:48)
[2017-03-10] MEDS: Ketorolac 15 MG/ML SDV IVPUSH SCH ×2 (03:02→10:17)
[2017-03-10] MEDS: Acetaminophen/HYDROcodone 325-5 MG Tab PO PRN ×5 (03:16→21:24)
[2017-03-10] MEDS: Levothyroxine 88 MCG Tab PO SCH (06:19)
[2017-03-10] MEDS: Ondansetron 4 MG/2 ML SDV IVPUSH PRN (07:14)
[2017-03-10] MEDS: HYDROmorphone 1 MG/ML Syringe IVPUSH PRN ×2 (07:14→19:06)
[2017-03-10] MEDS ORDERED: Metoprolol Tartrate 25 MG Tab PO SCH (09:00)
[2017-03-10] MEDS: Clopidogrel 75 MG Tab PO SCH (09:09)
[2017-03-10] MEDS: Multivitamins with Minerals/Folic Acid/Lutein/Zeaxanth Tab PO SCH ×2 (09:09→21:22)
[2017-03-10] MEDS: Docusate Sodium 100 MG Cap PO SCH ×2 (09:09→21:22)
--- NOTE | 2017-03-10 12:11 | PCM.PN ---
- General Info Date of Service: 03/10/17 Functional Status: Reports: Pain Controlled, Tolerating Diet, Ambulating, Urinating - Review of Systems General: Reports: Weakness HEENT: Reports: No Symptoms Pulmonary: Reports: No Symptoms Cardiovascular: Reports: Chest Pain Gastrointestinal: Reports: No Symptoms Genitourinary: Reports: No Symptoms Musculoskeletal: Reports: No Symptoms Skin: Reports: No Symptoms Neurological: Reports: No Symptoms Psychiatric: Reports: No Symptoms - Patient Data Vitals - Most Recent: Last Vital Signs Temp 36.4 C 03/10/17 03:08 Pulse 56 L 03/10/17 09:47 Resp 13 03/10/17 03:08 BP 110/50 L 03/10/17 09:47 Pulse Ox 94 L 03/10/17 03:08 Weight - Most Recent: 86.409 kg I&O - Last 24 Hours: Intake & Output 03/09/17 03/10/17 03/10/17 22:59 06:59 14:59 Intake Total 410 600 180 Output Total 300 1000 Balance 110 -400 180 Lab Results Last 24 Hours: Laboratory Results - last 24 hr 03/10/17 03/10/17 03/10/17 Range/Units 05:45 05:45 05:45 WBC 8.15 (3.98-10.04) K/mm3 RBC 4.23 (3.98-5.22) M/mm3 Hgb 13.1 (11.2-15.7) gm/L Hct 39.0 (34.1-44.9) % MCV 92.2 (79.4-94.8) fl MCH 31.0 (25.6-32.2) pg MCHC 33.6 (32.2-35.5) g/dl RDW Std Deviation 45.3 (36.4-46.3) fL Plt Count 195 (182-369) K/mm3 MPV 9.6 (9.4-12.3) fl Neut % (Auto) 57.2 (34.0-71.1) % Lymph % (Auto) 27.6 (19.3-51.7) % [place] % (Auto) 12.5 (4.7-12.5) % Eos % (Auto) 2.1 (0.7-5.8) Baso % (Auto) 0.4 (0.1-1.2) % Neut # (Auto) 4.66 (1.56-6.13) K/mm3 Lymph # (Auto) 2.25 (1.18-3.74) K/mm3 [place] # (Auto) 1.02 H (0.24-0.36) K/mm3 Eos # (Auto) 0.17 (0.04-0.36) K/mm3 Baso # (Auto) 0.03 (0.01-0.08) K/mm3 PT 25.2 H (8.0-13.0) SECONDS INR 2.20 Sodium 142 (136-145) mEq/L Potassium 4.5 (3.5-5.1) mEq/L Chloride 107 (98-107) mEq/L Carbon Dioxide 28 (21-32) mEq/L Anion Gap 11.5 (5-15) BUN 20 H (7-18) mg/dL Creatinine 0.9 (0.55-1.02) mg/dL Est Cr Clr Drug Dosing 45.12 mL/min Estimated GFR (MDRD) 60 (>60) mL/min BUN/Creatinine Ratio 22.2 H (14-18) Glucose 85 (83-115) mg/dL Calcium 8.5 (8.5-10.1) mg/dL Magnesium 1.8 (1.8-2.4) mg/dl Med Orders - Current: Current Medications Hydrocodone Bitart/Acetaminophen ([place] 325-5 Mg) 1 tab PO Q4H PRN PRN Reason: Pain Last Admin: 03/10/17 12:00 Dose: 1 tab Amitriptyline HCl (Elavil) 25 mg PO BEDTIME [facility] Last Admin: 03/09/17 21:47 Dose: 25 mg Clopidogrel Bisulfate (Plavix) 75 mg PO DAILY [facility] Last Admin: 03/10/17 09:09 Dose: 75 mg Docusate Sodium (Colace) 100 mg PO BID [facility] Last Admin: 03/10/17 09:09 Dose: 100 mg Hydromorphone HCl (Dilaudid) 1 mg IVPUSH Q2H PRN PRN Reason: Pain Last Admin: 03/10/17 07:14 Dose: 1 mg Levothyroxine Sodium (Synthroid) 88 mcg PO ACBREAKFAST [facility] Last Admin: 03/10/17 06:19 Dose: 88 mcg Magnesium Oxide (Magnesium Oxide) 400 mg PO DAILY [facility] Metoprolol Tartrate (Lopressor) 50 mg PO BID@1200,2100 [facility] Miscellaneous Information (Remove Patch) 1 ea TRDERM Q72H [facility] Ondansetron HCl (Zofran) 4 mg IVPUSH Q8H PRN PRN Reason: Nausea/Vomiting Last Admin: 03/10/17 07:14 Dose: 4 mg Ptom: Ubidecarenone (100mg (Coenzyme-Q)) 1 each PO DAILY [facility] Last Admin: 03/09/17 09:51 Dose: 1 each Polyethylene Glycol (Miralax) 17 gm PO BEDTIME PRN PRN Reason: Constipation Simvastatin (Zocor) 10 mg PO BEDTIME [facility] Last Admin: 03/09/17 21:48 Dose: 10 mg Sodium Chloride (Saline Flush) 10 ml FLUSH ONETIME PRN PRN Reason: IV FLUSH Last Admin: 03/09/17 10:03 Dose: 10 ml Vit A/Vit C/Vit E/Selen/Cu/Zn/Lutei (Icaps Mv) 2 tab PO BID [facility] Last Admin: 03/10/17 09:09 Dose: 2 tab Warfarin Sodium (Coumadin) 7.5 mg PO MoWeFr@1800 [facility] Last Admin: 03/09/17 17:37 Dose: 7.5 mg Warfarin Sodium (Coumadin) 5 mg PO SuTuThSa@1800 [facility] Last Admin: 03/08/17 18:39 Dose: 5 mg Discontinued Medications Enoxaparin Sodium (Lovenox) 40 mg SUBCUT DAILY [facility] Last Admin: 03/09/17 10:01 Dose: Not Given Fentanyl (Duragesic) 12 mcg TRDERM Q72H [facility] Last Admin: 03/08/17 18:47 Dose: 12 mcg Hydromorphone HCl (Dilaudid) 1 mg IVPUSH ONETIME ONE Stop: 03/08/17 11:07 Last Admin: 03/08/17 11:10 Dose: 1 mg Hydromorphone HCl (Dilaudid) Confirm Administered Dose 1 mg .ROUTE .STK-MED ONE Stop: 03/08/17 11:13 Last Admin: 03/08/17 11:16 Dose: Not Given Hydromorphone HCl (Dilaudid) 1 mg IVPUSH Q6H PRN PRN Reason: Pain (severe 7-10) Last Admin: 03/08/17 18:19 Dose: 1 mg Sodium Chloride (Normal Saline) 500 mls @ 250 mls/hr IV .BOLUS ONE Stop: 03/08/17 12:35 Last Admin: 03/08/17 10:42 Dose: 250 mls/hr Sodium Chloride (Normal Saline) Confirm Administered Dose 1,000 mls @ as directed .ROUTE .STK-MED ONE Stop: 03/08/17 10:45 Last Admin: 03/08/17 10:43 Dose: Not Given Lactated Ringer's (Ringers, Lactated) 1,000 mls @ 75 mls/hr IV ASDIRECTED [facility] Stop: 03/09/17 06:00 Last Admin: 03/08/17 20:00 Dose: 75 mls/hr Iopamidol (Isovue-300 (61%)) 100 ml IVPUSH ONETIME ONE Stop: 03/08/17 10:44 Last Admin: 03/08/17 11:23 Dose: 100 ml Ketorolac Tromethamine (Toradol) 15 mg IVPUSH Q8H [facility] Stop: 03/10/17 10:01 Last Admin: 03/10/17 10:17 Dose: 15 mg Metoprolol Succinate (Toprol Xl) 100 mg PO DAILY [facility] Last Admin: 03/09/17 09:49 Dose: 100 mg Metoprolol Tartrate (Lopressor) 50 mg PO Q12HR [facility] Last Admin: 03/10/17 09:47 Dose: Not Given Morphine Sulfate (Morphine) 2 mg IVPUSH ONETIME ONE Stop: 03/08/17 10:36 Last Admin: 03/08/17 10:40 Dose: 2 mg Morphine Sulfate (Morphine) 2 mg IVPUSH ONETIME ONE Stop: 03/08/17 16:49 Last Admin: 03/08/17 18:05 Dose: Not Given Scopolamine (Scopolamine) 1 each TRDERM Q72H PRN PRN Reason: Nausea - Exam Quality Assessment: DVT Prophylaxis General: Alert, Oriented, Cooperative, No Acute Distress HEENT: Pupils Equal, Pupils Reactive, EOMI Neck: Trachea Midline, No JVD Lungs: Normal Respiratory Effort Cardiovascular: Regular Rate, Bradycardia GI/Abdominal Exam: Normal Bowel Sounds, Soft, Non-Tender, No Organomegaly, No Distention (Female) Exam: Deferred Back Exam: Normal Inspection Extremities: Normal Inspection Skin: Warm Neurological: No New Focal Deficit, Normal Gait, Normal Speech Psy/Mental Status: Alert, Normal Affect, Normal Mood - Problem List & Annotations (1) Multiple fractures of ribs, left side, initial encounter for closed fracture SNOMED Code(s): 21678644 Code(s): S22.42XA - MULTIPLE FRACTURES OF RIBS, LEFT SIDE, INIT FOR CLOS FX Status: Acute Priority: High Current Visit: Yes (2) Abdominal pain SNOMED Code(s): 73749619 Code(s): R10.9 - UNSPECIFIED ABDOMINAL PAIN Status: Resolved Priority: Low Current Visit: No Qualifiers: Abdominal location: epigastric Qualified Code(s): R10.13 - Epigastric pain (3) Atrial fibrillation with RVR SNOMED Code(s): 631443641213317 Code(s): I48.91 - UNSPECIFIED ATRIAL FIBRILLATION Status: Chronic Priority: Low Current Visit: No (4) Chest pain SNOMED Code(s): 20930168 Code(s): R07.9 - CHEST PAIN, UNSPECIFIED Status: Acute Priority: Medium Current Visit: No Qualifiers: Chest pain type: unspecified Qualified Code(s): R07.9 - Chest pain, unspecified (5) Hypertension SNOMED Code(s): 11750250 Code(s): I10 - ESSENTIAL (PRIMARY) HYPERTENSION Status: Chronic Priority : Medium Current Visit: No Qualifiers: Hypertension type: essential hypertension Qualified Code(s): I10 - Essential (primary) hypertension - Problem List Review Problem List Initiated/Reviewed/Updated: Yes - My Orders Last 24 Hours: My Active Orders 03/10/17 12:15 Magnesium Oxide 400 mg PO DAILY - Plan Plan:: Impression: S/P fall with multiple rib fractures Recent increase in Metoprolol, dizziness when taken on an empty stomach - Will switch to metoprolol tartrate BID A Fib on coumadin without overt signs of hematoma Chronic CAD/PCI on Plavix HTN Macular Degeneration Fibromyalgia Hypothyroidism Aortic Aneursym Plan: Gen Surg consult re: rib fx, follow as needed for PTX Pain mgt narcotic/non-narcotics PT/OT consults CSM consult Home meds Daily meds DVT/GI prophylaxis Adjustment of medical regimen to avoid hypotension Change Lopressor with parameters O2 as needed Considering SNF at [place].
[2017-03-10] MEDS: Metoprolol Tartrate 25 MG Tab PO SCH ×2 (12:25→21:23)
[2017-03-10] MEDS: Magnesium Oxide 400 MG Tab PO SCH (14:45)
[2017-03-10] MEDS: UBIDECARENONE 100 MG PO SCH (14:47)
[2017-03-10] MEDS: Warfarin 5 MG Tab PO SCH (17:32)
[2017-03-10] MEDS: Simvastatin 10 MG Tab PO SCH (21:23)
[2017-03-10] MEDS: Amitriptyline 25 MG Tab PO SCH (21:23)
[2017-03-11] MEDS: HYDROmorphone 1 MG/ML Syringe IVPUSH PRN ×2 (02:17→07:54)
[2017-03-11] MEDS: Acetaminophen/HYDROcodone 325-5 MG Tab PO PRN ×3 (02:18→21:45)
[2017-03-11] MEDS: Levothyroxine 88 MCG Tab PO SCH (05:58)
[2017-03-11] MEDS: Docusate Sodium 100 MG Cap PO SCH ×2 (08:25→20:30)
[2017-03-11] MEDS: Clopidogrel 75 MG Tab PO SCH (08:25)
[2017-03-11] MEDS: Magnesium Oxide 400 MG Tab PO SCH ×2 (08:25→20:30)
[2017-03-11] MEDS: Multivitamins with Minerals/Folic Acid/Lutein/Zeaxanth Tab PO SCH ×2 (08:25→20:30)
[2017-03-11] MEDS: UBIDECARENONE 100 MG PO SCH (09:17)
[2017-03-11] MEDS ORDERED: Metoprolol Tartrate 50 MG Tab PO ONE (09:26)
[2017-03-11] MEDS: Metoprolol Tartrate 25 MG Tab PO SCH ×3 (09:33→20:30)
[2017-03-11] MEDS ORDERED: Ketorolac 30 MG/ML SDV IVPUSH ONE (11:21)
[2017-03-11] MEDS ORDERED: fentaNYL 12 MCG/HR Transdermal Patch TRDERM SCH (11:30)
[2017-03-11] MEDS: Ondansetron 4 MG/2 ML SDV IVPUSH PRN (13:13)
--- NOTE | 2017-03-11 14:28 | PCM.PN ---
- General Info Date of Service: 03/11/17 Subjective Update: Experiencing pain after Toradol was stopped, clarified with MAR after rounds. Functional Status: Reports: Tolerating Diet - Review of Systems General: Reports: Weakness HEENT: Reports: No Symptoms Pulmonary: Reports: Shortness of Breath, Pleuritic Chest Pain Cardiovascular: Reports: No Symptoms Gastrointestinal: Reports: No Symptoms Genitourinary: Reports: No Symptoms Musculoskeletal: Reports: No Symptoms Skin: Reports: No Symptoms Neurological: Reports: No Symptoms Psychiatric: Reports: No Symptoms - Patient Data Vitals - Most Recent: Last Vital Signs Temp 36.5 C 03/11/17 09:03 Pulse 80 03/11/17 09:33 Resp 14 03/11/17 09:03 BP 123/58 L 03/11/17 09:33 Pulse Ox 94 L 03/11/17 09:03 Weight - Most Recent: 86.046 kg I&O - Last 24 Hours: Intake & Output 03/10/17 03/11/17 03/11/17 22:59 06:59 14:59 Intake Total 960 700 60 Output Total 950 750 Balance 10 -50 60 Lab Results Last 24 Hours: Laboratory Results - last 24 hr 03/11/17 03/11/17 03/11/17 Range/Units 06:40 06:40 09:20 WBC 8.37 (3.98-10.04) K/mm3 RBC 4.26 (3.98-5.22) M/mm3 Hgb 13.1 (11.2-15.7) gm/L Hct 39.2 (34.1-44.9) % MCV 92.0 (79.4-94.8) fl MCH 30.8 (25.6-32.2) pg MCHC 33.4 (32.2-35.5) g/dl RDW Std Deviation 44.2 (36.4-46.3) fL Plt Count 201 (182-369) K/mm3 MPV 9.4 (9.4-12.3) fl Neut % (Auto) 63.0 (34.0-71.1) % Lymph % (Auto) 22.8 (19.3-51.7) % [place] % (Auto) 11.8 (4.7-12.5) % Eos % (Auto) 1.8 (0.7-5.8) Baso % (Auto) 0.4 (0.1-1.2) % Neut # (Auto) 5.27 (1.56-6.13) K/mm3 Lymph # (Auto) 1.91 (1.18-3.74) K/mm3 [place] # (Auto) 0.99 H (0.24-0.36) K/mm3 Eos # (Auto) 0.15 (0.04-0.36) K/mm3 Baso # (Auto) 0.03 (0.01-0.08) K/mm3 Sodium 141 (136-145) mEq/L Potassium 4.8 (3.5-5.1) mEq/L Chloride 104 (98-107) mEq/L Carbon Dioxide 30 (21-32) mEq/L Anion Gap 11.8 (5-15) BUN 21 H (7-18) mg/dL Creatinine 1.0 (0.55-1.02) mg/dL Est Cr Clr Drug Dosing 40.60 mL/min Estimated GFR (MDRD) 53 (>60) mL/min BUN/Creatinine Ratio 21.0 H (14-18) Glucose 105 (83-115) mg/dL Calcium 8.7 (8.5-10.1) mg/dL Magnesium 1.8 (1.8-2.4) mg/dl Total Bilirubin (0.2-1.0) mg/dL Troponin I < 0.017 (0.00-0.056) ng/mL Lipase (73-393) U/L 03/11/17 Range/Units 09:20 WBC (3.98-10.04) K/mm3 RBC (3.98-5.22) M/mm3 Hgb (11.2-15.7) gm/L Hct (34.1-44.9) % MCV (79.4-94.8) fl MCH (25.6-32.2) pg MCHC (32.2-35.5) g/dl RDW Std Deviation (36.4-46.3) fL Plt Count (182-369) K/mm3 MPV (9.4-12.3) fl Neut % (Auto) (34.0-71.1) % Lymph % (Auto) (19.3-51.7) % [place] % (Auto) (4.7-12.5) % Eos % (Auto) (0.7-5.8) Baso % (Auto) (0.1-1.2) % Neut # (Auto) (1.56-6.13) K/mm3 Lymph # (Auto) (1.18-3.74) K/mm3 [place] # (Auto) (0.24-0.36) K/mm3 Eos # (Auto) (0.04-0.36) K/mm3 Baso # (Auto) (0.01-0.08) K/mm3 Sodium (136-145) mEq/L Potassium (3.5-5.1) mEq/L Chloride (98-107) mEq/L Carbon Dioxide (21-32) mEq/L Anion Gap (5-15) BUN (7-18) mg/dL Creatinine (0.55-1.02) mg/dL Est Cr Clr Drug Dosing mL/min Estimated GFR (MDRD) (>60) mL/min BUN/Creatinine Ratio (14-18) Glucose (83-115) mg/dL Calcium (8.5-10.1) mg/dL Magnesium (1.8-2.4) mg/dl Total Bilirubin 1.4 H (0.2-1.0) mg/dL Troponin I (0.00-0.056) ng/mL Lipase 601 H (73-393) U/L Med Orders - Current: Current Medications Hydrocodone Bitart/Acetaminophen ([place] 325-5 Mg) 1 tab PO Q4H PRN PRN Reason: Pain Last Admin: 03/11/17 05:58 Dose: 1 tab Amitriptyline HCl (Elavil) 25 mg PO BEDTIME [facility] Last Admin: 03/10/17 21:23 Dose: 25 mg Clopidogrel Bisulfate (Plavix) 75 mg PO DAILY [facility] Last Admin: 03/11/17 08:25 Dose: 75 mg Docusate Sodium (Colace) 100 mg PO BID [facility] Last Admin: 03/11/17 08:25 Dose: 100 mg Fentanyl (Duragesic) 12 mcg TRDERM Q72H [facility] Last Admin: 03/11/17 11:50 Dose: 12 mcg Hydromorphone HCl (Dilaudid) 1 mg IVPUSH Q2H PRN PRN Reason: Pain Last Admin: 03/11/17 07:54 Dose: 1 mg Ketorolac Tromethamine (Toradol) 15 mg IVPUSH Q6H [facility] Stop: 03/12/17 09:31 Levothyroxine Sodium (Synthroid) 88 mcg PO ACBREAKFAST [facility] Last Admin: 03/11/17 05:58 Dose: 88 mcg Magnesium Oxide (Magnesium Oxide) 400 mg PO DAILY [facility] Last Admin: 03/11/17 08:25 Dose: 400 mg Metoprolol Tartrate (Lopressor) 50 mg PO BID@1200,2100 [facility] Last Admin: 03/11/17 12:17 Dose: Not Given Miscellaneous Information (Remove Patch) 1 ea TRDERM Q72H [facility] Ondansetron HCl (Zofran) 4 mg IVPUSH Q8H PRN PRN Reason: Nausea/Vomiting Last Admin: 03/11/17 13:13 Dose: 4 mg Ptom: Ubidecarenone (100mg (Coenzyme-Q)) 1 each PO DAILY [facility] Last Admin: 03/11/17 09:17 Dose: Not Given Polyethylene Glycol (Miralax) 17 gm PO BEDTIME PRN PRN Reason: Constipation Last Admin: 03/11/17 08:26 Dose: 17 gm Simvastatin (Zocor) 10 mg PO BEDTIME [facility] Last Admin: 03/10/17 21:23 Dose: 10 mg Sodium Chloride (Saline Flush) 10 ml FLUSH ONETIME PRN PRN Reason: IV FLUSH Last Admin: 03/09/17 10:03 Dose: 10 ml Vit A/Vit C/Vit E/Selen/Cu/Zn/Lutei (Icaps Mv) 1 tab PO BID [facility] Last Admin: 03/11/17 08:25 Dose: 1 tab Warfarin Sodium (Coumadin) 7.5 mg PO MoWeFr@1800 [facility] Last Admin: 03/09/17 17:37 Dose: 7.5 mg Warfarin Sodium (Coumadin) 5 mg PO SuTuThSa@1800 [facility] Last Admin: 03/10/17 17:32 Dose: 5 mg Discontinued Medications Enoxaparin Sodium (Lovenox) 40 mg SUBCUT DAILY [facility] Last Admin: 03/09/17 10:01 Dose: Not Given Fentanyl (Duragesic) 12 mcg TRDERM Q72H [facility] Last Admin: 03/08/17 18:47 Dose: 12 mcg Hydromorphone HCl (Dilaudid) 1 mg IVPUSH ONETIME ONE Stop: 03/08/17 11:07 Last Admin: 03/08/17 11:10 Dose: 1 mg Hydromorphone HCl (Dilaudid) Confirm Administered Dose 1 mg .ROUTE .STK-MED ONE Stop: 03/08/17 11:13 Last Admin: 03/08/17 11:16 Dose: Not Given Hydromorphone HCl (Dilaudid) 1 mg IVPUSH Q6H PRN PRN Reason: Pain (severe 7-10) Last Admin: 03/08/17 18:19 Dose: 1 mg Sodium Chloride (Normal Saline) 500 mls @ 250 mls/hr IV .BOLUS ONE Stop: 03/08/17 12:35 Last Admin: 03/08/17 10:42 Dose: 250 mls/hr Sodium Chloride (Normal Saline) Confirm Administered Dose 1,000 mls @ as directed .ROUTE .STK-MED ONE Stop: 03/08/17 10:45 Last Admin: 03/08/17 10:43 Dose: Not Given Lactated Ringer's (Ringers, Lactated) 1,000 mls @ 75 mls/hr IV ASDIRECTED [facility] Stop: 03/09/17 06:00 Last Admin: 03/08/17 20:00 Dose: 75 mls/hr Iopamidol (Isovue-300 (61%)) 100 ml IVPUSH ONETIME ONE Stop: 03/08/17 10:44 Last Admin: 03/08/17 11:23 Dose: 100 ml Ketorolac Tromethamine (Toradol) 15 mg IVPUSH Q8H [facility] Stop: 03/10/17 10:01 Last Admin: 03/10/17 10:17 Dose: 15 mg Ketorolac Tromethamine (Toradol) 30 mg IVPUSH ONETIME ONE Stop: 03/11/17 11:22 Last Admin: 03/11/17 11:49 Dose: 30 mg Ketorolac Tromethamine (Toradol) 15 mg IVPUSH Q6H [facility] Stop: 03/12/17 11:31 Metoprolol Succinate (Toprol Xl) 100 mg PO DAILY [facility] Last Admin: 03/09/17 09:49 Dose: 100 mg Metoprolol Tartrate (Lopressor) 50 mg PO Q12HR [facility] Last Admin: 01/06/18 09:47 Dose: Not Given Metoprolol Tartrate (Lopressor) 50 mg PO ONETIME ONE Stop: 03/11/17 09:27 Last Admin: 03/11/17 09:35 Dose: Not Given Miscellaneous Information (Remove Patch) 1 ea TRDERM Q72H [facility] Morphine Sulfate (Morphine) 2 mg IVPUSH ONETIME ONE Stop: 03/08/17 10:36 Last Admin: 03/08/17 10:40 Dose: 2 mg Morphine Sulfate (Morphine) 2 mg IVPUSH ONETIME ONE Stop: 03/08/17 16:49 Last Admin: 03/08/17 18:05 Dose: Not Given Scopolamine (Scopolamine) 1 each TRDERM Q72H PRN PRN Reason: Nausea Vit A/Vit C/Vit E/Selen/Cu/Zn/Lutei (Icaps Mv) 2 tab PO BID [facility] Last Admin: 03/10/17 21:22 Dose: 1 tab - Exam Quality Assessment: Supplemental Oxygen, DVT Prophylaxis General: Alert, Oriented, Cooperative, Mild Distress HEENT: Pupils Equal, Pupils Reactive, EOMI Neck: Trachea Midline, No JVD Lungs: Normal Respiratory Effort Cardiovascular: Regular Rate, Regular Rhythm GI/Abdominal Exam: Normal Bowel Sounds, Soft, Non-Tender, No Organomegaly, No Distention (Female) Exam: Deferred Back Exam: Normal Inspection Extremities: Normal Inspection, Normal Range of Motion, Non-Tender, No Pedal Edema Skin: Warm Neurological: No New Focal Deficit Psy/Mental Status: Alert, Anxious - Problem List & Annotations (1) Multiple fractures of ribs, left side, initial encounter for closed fracture SNOMED Code(s): 22863875 Code(s): S22.42XA - MULTIPLE FRACTURES OF RIBS, LEFT SIDE, INIT FOR CLOS FX Status: Acute Priority: High Current Visit: Yes (2) Abdominal pain SNOMED Code(s): 17373474 Code(s): R10.9 - UNSPECIFIED ABDOMINAL PAIN Status: Resolved Priority: Low Current Visit: No Qualifiers: Abdominal location: epigastric Qualified Code(s): R10.13 - Epigastric pain (3) Atrial fibrillation with RVR SNOMED Code(s): 085448130313386 Code(s): I48.91 - UNSPECIFIED ATRIAL FIBRILLATION Status: Chronic Priority: Low Current Visit: No (4) Chest pain SNOMED Code(s): 42443354 Code(s): R07.9 - CHEST PAIN, UNSPECIFIED Status: Acute Priority: Medium Current Visit: No Qualifiers: Chest pain type: unspecified Qualified Code(s): R07.9 - Chest pain, unspecified (5) Hypertension SNOMED Code(s): 18241539 Code(s): I10 - ESSENTIAL (PRIMARY) HYPERTENSION Status: Chronic Priority : Medium Current Visit: No Qualifiers: Hypertension type: essential hypertension Qualified Code(s): I10 - Essential (primary) hypertension - Problem List Review Problem List Initiated/Reviewed/Updated: Yes - My Orders Last 24 Hours: My Active Orders 03/10/17 15:53 Up ad [place] [RC] ASDIRECTED 03/10/17 19:23 Oxygen Therapy [RC] ASDIRECTED 03/11/17 08:52 EKG 12 Lead [EK] Routine 03/11/17 08:59 EKG 12 Lead [EK] Stat 03/11/17 09:00 Multivitamins/Min/FA/Lut/Zeax [ICaps MV] 1 tab PO BID 03/11/17 11:30 fentaNYL [Duragesic] 12 mcg TRDERM Q72H 03/11/17 15:00 TROPONIN I [CHEM] Routine 03/11/17 15:30 Ketorolac [Toradol] 15 mg IVPUSH Q6H 03/14/17 11:30 Remove Patch 1 ea TRDERM Q72H - Plan Plan:: Impression: S/P fall with multiple rib fractures Recent increase in Metoprolol, dizziness when taken on an empty stomach - Will switch to metoprolol tartrate BID A Fib on coumadin without overt signs of hematoma Chronic CAD/PCI on Plavix HTN Macular Degeneration Fibromyalgia Hypothyroidism Aortic Aneursym Plan: Gen Surg consult re: rib fx, follow as needed for PTX Pain mgt narcotic/non-narcotics; resume Toradol, change to Motrin in 24 hours; will try Fentanyl patch again. PT/OT consults CSM consult Home meds Daily meds DVT/GI prophylaxis Adjustment of medical regimen to avoid hypotension Change Lopressor with parameters O2 as needed Considering SNF at [place], [facility].
[2017-03-11] MEDS: Ketorolac 15 MG/ML SDV IVPUSH SCH ×3 (16:57→21:18)
[2017-03-11] MEDS: Warfarin 5 MG Tab PO SCH (17:00)
[2017-03-11] MEDS ORDERED: Ketorolac 15 MG/ML SDV IVPUSH SCH (17:30)
[2017-03-11] MEDS ORDERED: REMOVE FENTANYL TRDERM SCH (18:00)
[2017-03-11] MEDS ORDERED: Sodium Chloride 0.9% 250 ML IV ONE ×2 (19:50→20:10)
[2017-03-11] MEDS ORDERED: methylPREDNISolone Sodium Succinate 125 MG/2 ML SDV IVPUSH ONE (19:52)
[2017-03-11] MEDS ORDERED: Sodium Chloride 0.9% 500 ML IV ONE (19:57)
[2017-03-11] MEDS: Amitriptyline 25 MG Tab PO SCH (20:30)
[2017-03-11] MEDS: Simvastatin 10 MG Tab PO SCH (20:30)
--- NOTE | 2017-03-11 21:41 | PCM.CONSN ---
- General Info Date of Service: 03/11/17 - Patient Data Vitals - Most Recent: Last Vital Signs Temp 97.2 F 03/11/17 14:40 Pulse 85 03/11/17 20:30 Resp 16 03/11/17 16:23 BP 91/64 03/11/17 20:30 Pulse Ox 99 03/11/17 16:23 Weight - Most Recent: 86.046 kg I&O - Last 24 Hours: Intake & Output 03/11/17 03/11/17 03/11/17 07:59 15:59 23:59 Intake Total 419 52 2898 Output Total 750 600 Balance -50 60 440 Lab Results Last 24 Hours: Laboratory Results - last 24 hr 03/11/17 03/11/17 03/11/17 Range/Units 06:40 06:40 09:20 WBC 8.37 (3.98-10.04) K/mm3 RBC 4.26 (3.98-5.22) M/mm3 Hgb 13.1 (11.2-15.7) gm/L Hct 39.2 (34.1-44.9) % MCV 92.0 (79.4-94.8) fl MCH 30.8 (25.6-32.2) pg MCHC 33.4 (32.2-35.5) g/dl RDW Std Deviation 44.2 (36.4-46.3) fL Plt Count 201 (182-369) K/mm3 MPV 9.4 (9.4-12.3) fl Neut % (Auto) 63.0 (34.0-71.1) % Lymph % (Auto) 22.8 (19.3-51.7) % [place] % (Auto) 11.8 (4.7-12.5) % Eos % (Auto) 1.8 (0.7-5.8) Baso % (Auto) 0.4 (0.1-1.2) % Neut # (Auto) 5.27 (1.56-6.13) K/mm3 Lymph # (Auto) 1.91 (1.18-3.74) K/mm3 [place] # (Auto) 0.99 H (0.24-0.36) K/mm3 Eos # (Auto) 0.15 (0.04-0.36) K/mm3 Baso # (Auto) 0.03 (0.01-0.08) K/mm3 Sodium 141 (136-145) mEq/L Potassium 4.8 (3.5-5.1) mEq/L Chloride 104 (98-107) mEq/L Carbon Dioxide 30 (21-32) mEq/L Anion Gap 11.8 (5-15) BUN 21 H (7-18) mg/dL Creatinine 1.0 (0.55-1.02) mg/dL Est Cr Clr Drug Dosing 40.60 mL/min Estimated GFR (MDRD) 53 (>60) mL/min BUN/Creatinine Ratio 21.0 H (14-18) Glucose 105 (83-115) mg/dL Calcium 8.7 (8.5-10.1) mg/dL Magnesium 1.8 (1.8-2.4) mg/dl Total Bilirubin (0.2-1.0) mg/dL Troponin I < 0.017 (0.00-0.056) ng/mL Lipase (73-393) U/L 03/11/17 03/11/17 Range/Units 09:20 15:00 WBC (3.98-10.04) K/mm3 RBC (3.98-5.22) M/mm3 Hgb (11.2-15.7) gm/L Hct (34.1-44.9) % MCV (79.4-94.8) fl MCH (25.6-32.2) pg MCHC (32.2-35.5) g/dl RDW Std Deviation (36.4-46.3) fL Plt Count (182-369) K/mm3 MPV (9.4-12.3) fl Neut % (Auto) (34.0-71.1) % Lymph % (Auto) (19.3-51.7) % [place] % (Auto) (4.7-12.5) % Eos % (Auto) (0.7-5.8) Baso % (Auto) (0.1-1.2) % Neut # (Auto) (1.56-6.13) K/mm3 Lymph # (Auto) (1.18-3.74) K/mm3 [place] # (Auto) (0.24-0.36) K/mm3 Eos # (Auto) (0.04-0.36) K/mm3 Baso # (Auto) (0.01-0.08) K/mm3 Sodium (136-145) mEq/L Potassium (3.5-5.1) mEq/L Chloride (98-107) mEq/L Carbon Dioxide (21-32) mEq/L Anion Gap (5-15) BUN (7-18) mg/dL Creatinine (0.55-1.02) mg/dL Est Cr Clr Drug Dosing mL/min Estimated GFR (MDRD) (>60) mL/min BUN/Creatinine Ratio (14-18) Glucose (83-115) mg/dL Calcium (8.5-10.1) mg/dL Magnesium (1.8-2.4) mg/dl Total Bilirubin 1.4 H (0.2-1.0) mg/dL Troponin I < 0.017 (0.00-0.056) ng/mL Lipase 601 H (73-393) U/L Med Orders - Current: Current Medications Hydrocodone Bitart/Acetaminophen ([place] 325-5 Mg) 1 tab PO Q4H PRN PRN Reason: Pain Last Admin: 03/11/17 05:58 Dose: 1 tab Amitriptyline HCl (Elavil) 25 mg PO BEDTIME [facility] Last Admin: 03/11/17 20:30 Dose: 25 mg Clopidogrel Bisulfate (Plavix) 75 mg PO DAILY [facility] Last Admin: 03/11/17 08:25 Dose: 75 mg Docusate Sodium (Colace) 100 mg PO BID [facility] Last Admin: 03/11/17 20:30 Dose: 100 mg Hydromorphone HCl (Dilaudid) 0.5 mg IVPUSH Q4H PRN PRN Reason: Pain Ketorolac Tromethamine (Toradol) 15 mg IVPUSH Q6H [facility] Stop: 03/12/17 09:31 Last Admin: 03/11/17 21:18 Dose: Not Given Levothyroxine Sodium (Synthroid) 88 mcg PO ACBREAKFAST [facility] Last Admin: 03/11/17 05:58 Dose: 88 mcg Magnesium Oxide (Magnesium Oxide) 400 mg PO BID [facility] Last Admin: 03/11/17 20:30 Dose: 400 mg Metoprolol Tartrate (Lopressor) 50 mg PO BID@1200,2100 [facility] Last Admin: 03/11/17 20:30 Dose: 50 mg Ondansetron HCl (Zofran) 4 mg IVPUSH Q8H PRN PRN Reason: Nausea/Vomiting Last Admin: 03/11/17 13:13 Dose: 4 mg Ptom: Ubidecarenone (100mg (Coenzyme-Q)) 1 each PO DAILY [facility] Last Admin: 03/11/17 09:17 Dose: Not Given Polyethylene Glycol (Miralax) 17 gm PO BEDTIME PRN PRN Reason: Constipation Last Admin: 03/11/17 08:26 Dose: 17 gm Simvastatin (Zocor) 10 mg PO BEDTIME [facility] Last Admin: 03/11/17 20:30 Dose: 10 mg Sodium Chloride (Saline Flush) 10 ml FLUSH ONETIME PRN PRN Reason: IV FLUSH Last Admin: 03/09/17 10:03 Dose: 10 ml Vit A/Vit C/Vit E/Selen/Cu/Zn/Lutei (Icaps Mv) 1 tab PO BID [facility] Last Admin: 03/11/17 20:30 Dose: 1 tab Warfarin Sodium (Coumadin) 7.5 mg PO MoWeFr@1800 [facility] Last Admin: 03/09/17 17:37 Dose: 7.5 mg Warfarin Sodium (Coumadin) 5 mg PO SuTuThSa@1800 [facility] Last Admin: 03/11/17 17:00 Dose: 5 mg Discontinued Medications Bisacodyl (Dulcolax) 10 mg RECTAL ONETIME ONE Stop: 03/11/17 21:33 Enoxaparin Sodium (Lovenox) 40 mg SUBCUT DAILY [facility] Last Admin: 03/09/17 10:01 Dose: Not Given Fentanyl (Duragesic) 12 mcg TRDERM Q72H [facility] Last Admin: 03/08/17 18:47 Dose: 12 mcg Fentanyl (Duragesic) 12 mcg TRDERM Q72H [facility] Last Admin: 03/11/17 11:50 Dose: 12 mcg Hydromorphone HCl (Dilaudid) 1 mg IVPUSH ONETIME ONE Stop: 03/08/17 11:07 Last Admin: 03/08/17 11:10 Dose: 1 mg Hydromorphone HCl (Dilaudid) Confirm Administered Dose 1 mg .ROUTE .STK-MED ONE Stop: 03/08/17 11:13 Last Admin: 03/08/17 11:16 Dose: Not Given Hydromorphone HCl (Dilaudid) 1 mg IVPUSH Q6H PRN PRN Reason: Pain (severe 7-10) Last Admin: 03/08/17 18:19 Dose: 1 mg Hydromorphone HCl (Dilaudid) 1 mg IVPUSH Q2H PRN PRN Reason: Pain Last Admin: 03/11/17 07:54 Dose: 1 mg Sodium Chloride (Normal Saline) 500 mls @ 250 mls/hr IV .BOLUS ONE Stop: 03/08/17 12:35 Last Admin: 03/08/17 10:42 Dose: 250 mls/hr Sodium Chloride (Normal Saline) Confirm Administered Dose 1,000 mls @ as directed .ROUTE .STK-MED ONE Stop: 03/08/17 10:45 Last Admin: 03/08/17 10:43 Dose: Not Given Lactated Ringer's (Ringers, Lactated) 1,000 mls @ 75 mls/hr IV ASDIRECTED [facility] Stop: 03/09/17 06:00 Last Admin: 03/08/17 20:00 Dose: 75 mls/hr Sodium Chloride (Normal Saline) 250 mls @ 250 mls/hr IV .BOLUS ONE Stop: 03/11/17 20:49 Last Admin: 03/11/17 20:06 Dose: Not Given Sodium Chloride (Normal Saline) 500 mls @ 500 mls/hr IV .BOLUS ONE Stop: 03/11/17 20:49 Last Admin: 03/11/17 20:10 Dose: Not Given Sodium Chloride (Normal Saline) 250 mls @ 250 mls/hr IV .BOLUS ONE Stop: 03/11/17 20:56 Last Admin: 03/11/17 20:28 Dose: 250 mls/hr Iopamidol (Isovue-300 (61%)) 100 ml IVPUSH ONETIME ONE Stop: 03/08/17 10:44 Last Admin: 03/08/17 11:23 Dose: 100 ml Ketorolac Tromethamine (Toradol) 15 mg IVPUSH Q8H [facility] Stop: 03/10/17 10:01 Last Admin: 03/10/17 10:17 Dose: 15 mg Ketorolac Tromethamine (Toradol) 30 mg IVPUSH ONETIME ONE Stop: 03/11/17 11:22 Last Admin: 03/11/17 11:49 Dose: 30 mg Ketorolac Tromethamine (Toradol) 15 mg IVPUSH Q6H [facility] Stop: 03/12/17 11:31 Magnesium Oxide (Magnesium Oxide) 400 mg PO DAILY [facility] Last Admin: 03/11/17 08:25 Dose: 400 mg Methylprednisolone Sodium Succinate (Solu-Medrol) 125 mg IVPUSH ONETIME ONE Stop: 03/11/17 19:53 Last Admin: 03/11/17 20:28 Dose: 125 mg Metoprolol Succinate (Toprol Xl) 100 mg PO DAILY [facility] Last Admin: 03/09/17 09:49 Dose: 100 mg Metoprolol Tartrate (Lopressor) 50 mg PO Q12HR [facility] Last Admin: 03/10/17 09:47 Dose: Not Given Metoprolol Tartrate (Lopressor) 50 mg PO ONETIME ONE Stop: 03/11/17 09:27 Last Admin: 03/11/17 09:35 Dose: Not Given Miscellaneous Information (Remove Patch) 1 ea TRDERM Q72H [facility] Miscellaneous Information (Remove Patch) 1 ea TRDERM Q72H [facility] Miscellaneous Information (Remove Patch) 1 ea TRDERM NOW STA Stop: 03/11/17 19:54 Last Admin: 03/11/17 20:41 Dose: 1 ea Morphine Sulfate (Morphine) 2 mg IVPUSH ONETIME ONE Stop: 03/08/17 10:36 Last Admin: 03/08/17 10:40 Dose: 2 mg Morphine Sulfate (Morphine) 2 mg IVPUSH ONETIME ONE Stop: 03/08/17 16:49 Last Admin: 03/08/17 18:05 Dose: Not Given Scopolamine (Scopolamine) 1 each TRDERM Q72H PRN PRN Reason: Nausea Vit A/Vit C/Vit E/Selen/Cu/Zn/Lutei (Icaps Mv) 2 tab PO BID [facility] Last Admin: 03/10/17 21:22 Dose: 1 tab Consult PN Assessment/Plan Procedures: Procedures ASSAY OF AMYLASE (01/02/15) ASSAY OF LACTIC ACID (01/02/15) ASSAY OF LIPASE (01/02/15) ASSAY OF MAGNESIUM (01/02/15) ASSAY OF PHOSPHORUS (01/02/15) ASSAY OF TROPONIN QUANT (02/26/17) ASSAY THYROID STIM HORMONE (02/26/17) CHEST X-RAY 1 VIEW FRONTAL (02/26/17) COMPLETE CBC W/AUTO DIFF WBC (02/26/17) COMPREHEN METABOLIC PANEL (02/26/17) CT ABD & PELV W/CONTRAST (01/02/15) CT ABD & PELVIS W/O CONTRAST (01/07/15) CT THORAX W/DYE (01/02/15) CT THORAX W/O DYE (07/26/15) DXA BONE DENSITY AXIAL (05/18/16) ELECTROCARDIOGRAM TRACING (02/26/17) EMERGENCY DEPT VISIT (02/26/17) EMERGENCY DEPT VISIT (08/10/14) FIBRIN DEGRADATION QUANT (01/07/15) GLYCOSYLATED HEMOGLOBIN TEST (01/19/14) HYDRATE IV INFUSION ADD-ON (01/02/15) LIPID PANEL (06/22/14) MICROBE SUSCEPTIBLE NAIMA (01/02/15) ROUTINE VENIPUNCTURE (02/26/17) RPR S/N/AX/GEN/TRNK 2.5CM/< (08/10/14) THER/PROPH/DIAG IV INF ADDON (02/26/17) THER/PROPH/DIAG IV INF INIT (02/26/17) TISSUE EXAM BY PATHOLOGIST (01/06/15) TX/PRO/DX INJ NEW DRUG ADDON (01/02/15) TX/PRO/DX INJ SAME DRUG TRAILER ASSEMBLER (02/26/17) URINALYSIS AUTO W/SCOPE (01/02/15) URINE BACTERIA CULTURE (01/02/15) URINE CULTURE/COLONY COUNT (01/02/15) Problem List Initiated/Reviewed/Updated: Yes My Orders Last 24 Hours: My Active Orders 03/11/17 21:31 Enema [RC] ASDIRECTED 03/12/17 05:00 COMPREHENSIVE METABOLIC PN,CMP [CHEM] Routine LIPASE [CHEM] Routine Plan: surgical consult fort abdominal pain dictated VIVIANE
[2017-03-11] MEDS: Bisacodyl 10 MG Supp RECTAL ONE (21:46)
[2017-03-11] MEDS ORDERED: Bisacodyl 10 MG Supp RECTAL ONE (21:52)
[2017-03-12] MEDS: Bisacodyl 10 MG Supp RECTAL ONE (00:27)
[2017-03-12] MEDS: Acetaminophen/HYDROcodone 325-5 MG Tab PO PRN ×5 (02:29→21:23)
[2017-03-12] MEDS: Ketorolac 15 MG/ML SDV IVPUSH SCH ×2 (02:29→09:11)
[2017-03-12] MEDS: Levothyroxine 88 MCG Tab PO SCH (06:26)
--- NOTE | 2017-03-12 07:47 | CONS ---
CONSULTING PHYSICIAN: Kayode Goss MD DATE OF CONSULTATION: 03/11/2017 HISTORY OF PRESENT ILLNESS: The patient is an 81-year-old who was admitted on with a fall, rib fractures on the left. The patient has been treated with oral pain medication, Duragesic patch, and IV Dilaudid. The patient states it has been difficult to control her pain and keep blood pressure up since her blood pressure did drop and Duragesic patch was removed and she was given IV fluids and her blood pressure resorted to normal. The patient currently at the time of this discussion states that she has had some pain over the left lateral chest and down into the left side and into the breast. She does not complain of any epigastric pain, any back pain. There is no nausea and vomiting, but it is clear she has not had a bowel movement for a number of days. She is able to recall stable findings. PHYSICAL EXAMINATION: GENERAL: Reveals an alert female. She has some confusions about her history. VITAL SIGNS: Her blood pressure is 123/58, it dropped to 85/47, now 91/64; her pulse is 85; and her sats are 99% on 3 L. ABDOMEN: Shows tympany and distended, but no tenderness noted. UPPER AND LOWER EXTREMITIES: No angulation deformities. REVIEW OF SYSTEMS: No nausea or vomiting. LABORATORY DATA: Revealed showing elevated lipase twice normal, about 600 with a mild elevation of the bilirubin. ASSESSMENT: Rib fractures, accounts for her discomfort. Does not really describe any particular abdominal pain that could be associated with pancreatitis, although the lipase is elevated. However, she does need to have a bowel movement and recommendation of course is to give laxatives and pull back on the Duragesic patch and other Dilaudid, which is being done as we talk and we will follow the patient up in the morning. MMODAL /[id number]
--- NOTE | 2017-03-12 08:42 | CR ---
Abdomen: Supine and upright views of the abdomen were obtained. Comparison: No prior abdominal x-ray, prior CT abdomen and pelvis exam of 03/08/17. Air-fluid levels are identified on the upright view within small bowel and colon. Findings most likely represent an ileus. Surgical clips are seen from prior cholecystectomy. No free air is seen. Incidental calcified breast prosthesis are noted. Bony structures are osteopenic. Impression: 1. Air-fluid levels within colon and small bowel most likely representing ileus. 2. Other incidental findings. Diagnostic code #3
--- NOTE | 2017-03-12 08:54 | CR ---
Chest: Two views of the chest were obtained. Comparison: Prior chest x-ray of 03/09/17. Large left-sided pleural effusion is seen possibly due to hemothorax. Left-sided rib fractures are again seen. Right lung is clear. Cardiac silhouette difficult to see. Tortuous thoracic aorta is seen. Sternotomy wires are noted. Calcified breast prosthesis are seen. Impression: 1. Large left sided pleural effusion has developed as an interval change from prior chest x-ray. This may represent hemothorax from previous rib fractures. 2. Right lung is clear. Diagnostic code #5 [employer]ified [employer] Counselor called report to Lissette PEREZ for Dr. Chelle Malik at 0836 on 03/12/2017
[2017-03-12] MEDS: Docusate Sodium 100 MG Cap PO SCH ×2 (09:11→21:16)
[2017-03-12] MEDS: Multivitamins with Minerals/Folic Acid/Lutein/Zeaxanth Tab PO SCH ×2 (09:11→21:16)
[2017-03-12] MEDS: Magnesium Oxide 400 MG Tab PO SCH ×2 (09:11→21:16)
[2017-03-12] MEDS: Clopidogrel 75 MG Tab PO SCH (09:11)
[2017-03-12] MEDS: UBIDECARENONE 100 MG PO SCH (09:17)
[2017-03-12] MEDS: Metoprolol Tartrate 25 MG Tab PO SCH ×2 (13:10→22:50)
--- NOTE | 2017-03-12 13:44 | CT ---
CT chest Technique: Multiple axial sections through the chest were obtained. Intravenous contrast not utilized. Comparison: Prior chest CT of 03/08/17. Findings: Moderately large left-sided pleural effusion is seen showing loculations. This pleural effusion causes compressive atelectasis within the left lung base. Findings most likely due to hemothorax. Rib fractures are again seen within the left side of the chest. Right lung remains clear. Atherosclerotic calcification is noted within the thoracic aorta with ectasia of the aorta. Incidental calcified bilateral breast prosthesis are noted. Bone window settings shows mild scattered degenerative change within the spinal. Mild artifact is noted from sternotomy wires. Impression: 1. Moderately large left-sided pleural effusion showing loculations which is felt compatible with hemothorax. 2. Pleural effusion causes compressive left lower lobe atelectasis. 3. No pneumothorax is seen. Stable left-sided rib fractures are present. Diagnostic code #3
--- NOTE | 2017-03-12 15:28 | PCM.PN ---
- General Info Date of Service: 03/12/17 Admission Dx/Problem (Free Text): Admission Diagnosis/Problem Admission Diagnosis/Problem Rib injury Subjective Update: In to see Nishi. She is sitting in the chair and doing well. She reports she feels better than yesterday. She reports pain with deep inspiration and movement unless she "moves just right." She was up walking with PT today. CT notes a large left sided effusion with loculations which is felt compatible with a hemothorax. It is also noted to be causing compression atelectasis of the left lower lobe. Rib fractures are noted to be stable. Dr. Goss has been consulted and will see the patient later today. Her Anion gap is elevated, as is her creatinine and potasium. Will order 100ml/hr for 6 hrs. to rehydrate, using caution as she has had some weight gain. Pain is currently controlled. She did have a small BM today per her report. Functional Status: Reports: Pain Controlled, Tolerating Diet, Urinating, Incentive Spirometry. Denies: New Symptoms - Review of Systems General: Reports: Weakness (improved over yesterday. ), Fatigue HEENT: Reports: No Symptoms. Denies: Eye Pain, Glasses, Headaches, Sore Throat Pulmonary: Reports: Shortness of Breath, Pleuritic Chest Pain. Denies: Cough, Sputum, Wheezing Cardiovascular: Denies: Chest Pain, Palpitations, Dyspnea on Exertion, Edema, Lightheadedness Gastrointestinal: Reports: Constipation. Denies: Abdominal Pain, Diarrhea, Nausea, Vomiting Genitourinary: Denies: Dysuria, Frequency, Burning, Pain, Urgency Musculoskeletal: Reports: No Symptoms Skin: Reports: No Symptoms Neurological: Reports: No Symptoms Psychiatric: Reports: No Symptoms - Patient Data Vitals - Most Recent: Last Vital Signs Temp 97.3 F 03/12/17 08:54 Pulse 83 03/12/17 13:10 Resp 19 03/12/17 08:54 BP 138/61 03/12/17 13:10 Pulse Ox 93 L 03/12/17 08:54 Weight - Most Recent: 192 lb I&O - Last 24 Hours: Intake & Output 03/12/17 03/12/17 03/12/17 06:59 14:59 22:59 Intake Total 450 360 Output Total 600 Balance -150 360 Lab Results Last 24 Hours: Laboratory Results - last 24 hr 03/11/17 03/12/17 03/12/17 Range/Units 15:00 06:05 06:05 WBC 16.52 H (3.98-10.04) K/mm3 RBC 3.57 L (3.98-5.22) M/mm3 Hgb 11.1 L (11.2-15.7) gm/L Hct 33.0 L (34.1-44.9) % MCV 92.4 (79.4-94.8) fl MCH 31.1 (25.6-32.2) pg MCHC 33.6 (32.2-35.5) g/dl RDW Std Deviation 43.7 (36.4-46.3) fL Plt Count 257 (182-369) K/mm3 MPV 9.8 (9.4-12.3) fl Neut % (Auto) 88.4 H (34.0-71.1) % Lymph % (Auto) 8.5 L (19.3-51.7) % Steele % (Auto) 2.6 L (4.7-12.5) % Eos % (Auto) 0.1 L (0.7-5.8) Baso % (Auto) 0.0 L (0.1-1.2) % Neut # (Auto) 14.61 H (1.56-6.13) K/mm3 Lymph # (Auto) 1.41 (1.18-3.74) K/mm3 Steele # (Auto) 0.43 H (0.24-0.36) K/mm3 Eos # (Auto) 0.01 L (0.04-0.36) K/mm3 Baso # (Auto) 0.00 L (0.01-0.08) K/mm3 Manual Slide Review Abnormal smear PT 22.6 H (8.0-13.0) SECONDS INR 1.98 Sodium (136-145) mEq/L Potassium (3.5-5.1) mEq/L Chloride (98-107) mEq/L Carbon Dioxide (21-32) mEq/L Anion Gap (5-15) BUN (7-18) mg/dL Creatinine (0.55-1.02) mg/dL Est Cr Clr Drug Dosing mL/min Estimated GFR (MDRD) (>60) mL/min BUN/Creatinine Ratio (14-18) Glucose (83-115) mg/dL Calcium (8.5-10.1) mg/dL Magnesium (1.8-2.4) mg/dl Total Bilirubin (0.2-1.0) mg/dL AST (15-37) U/L ALT (14-59) U/L Alkaline Phosphatase (46-116) U/L Troponin I < 0.017 (0.00-0.056) ng/mL Total Protein (6.4-8.2) g/dl Albumin (3.4-5.0) g/dl Globulin gm/dL Albumin/Globulin Ratio (1-2) Lipase (73-393) U/L 03/12/17 Range/Units 06:05 WBC (3.98-10.04) K/mm3 RBC (3.98-5.22) M/mm3 Hgb (11.2-15.7) gm/L Hct (34.1-44.9) % MCV (79.4-94.8) fl MCH (25.6-32.2) pg MCHC (32.2-35.5) g/dl RDW Std Deviation (36.4-46.3) fL Plt Count (182-369) K/mm3 MPV (9.4-12.3) fl Neut % (Auto) (34.0-71.1) % Lymph % (Auto) (19.3-51.7) % Steele % (Auto) (4.7-12.5) % Eos % (Auto) (0.7-5.8) Baso % (Auto) (0.1-1.2) % Neut # (Auto) (1.56-6.13) K/mm3 Lymph # (Auto) (1.18-3.74) K/mm3 Steele # (Auto) (0.24-0.36) K/mm3 Eos # (Auto) (0.04-0.36) K/mm3 Baso # (Auto) (0.01-0.08) K/mm3 Manual Slide Review PT (8.0-13.0) SECONDS INR Sodium 137 (136-145) mEq/L Potassium 5.5 H (3.5-5.1) mEq/L Chloride 102 (98-107) mEq/L Carbon Dioxide 25 (21-32) mEq/L Anion Gap 15.5 H (5-15) BUN 32 H (7-18) mg/dL Creatinine 1.6 H (0.55-1.02) mg/dL Est Cr Clr Drug Dosing 25.38 mL/min Estimated GFR (MDRD) 31 (>60) mL/min BUN/Creatinine Ratio 20.0 H (14-18) Glucose 136 H (83-115) mg/dL Calcium 8.8 (8.5-10.1) mg/dL Magnesium 2.4 (1.8-2.4) mg/dl Total Bilirubin 1.0 (0.2-1.0) mg/dL AST 34 (15-37) U/L ALT 49 (14-59) U/L Alkaline Phosphatase 83 (46-116) U/L Troponin I (0.00-0.056) ng/mL Total Protein 6.8 (6.4-8.2) g/dl Albumin 3.1 L (3.4-5.0) g/dl Globulin 3.7 gm/dL Albumin/Globulin Ratio 0.8 L (1-2) Lipase 131 (73-393) U/L Med Orders - Current: Current Medications Hydrocodone Bitart/Acetaminophen ([place] 325-5 Mg) 1 tab PO Q4H PRN PRN Reason: Pain Last Admin: 03/12/17 10:32 Dose: 1 tab Amitriptyline HCl (Elavil) 25 mg PO BEDTIME [facility] Last Admin: 03/11/17 20:30 Dose: 25 mg Clopidogrel Bisulfate (Plavix) 75 mg PO DAILY [facility] Last Admin: 03/12/17 09:11 Dose: 75 mg Docusate Sodium (Colace) 100 mg PO BID [facility] Last Admin: 03/12/17 09:11 Dose: 100 mg Hydromorphone HCl (Dilaudid) 0.5 mg IVPUSH Q4H PRN PRN Reason: Pain Levothyroxine Sodium (Synthroid) 88 mcg PO ACBREAKFAST [facility] Last Admin: 03/12/17 06:26 Dose: 88 mcg Magnesium Oxide (Magnesium Oxide) 400 mg PO BID [facility] Last Admin: 03/12/17 09:11 Dose: 400 mg Metoprolol Tartrate (Lopressor) 50 mg PO BID@1200,2100 [facility] Last Admin: 03/12/17 13:10 Dose: 50 mg Ondansetron HCl (Zofran) 4 mg IVPUSH Q8H PRN PRN Reason: Nausea/Vomiting Last Admin: 03/11/17 13:13 Dose: 4 mg Ptom: Ubidecarenone (100mg (Coenzyme-Q)) 1 each PO DAILY [facility] Last Admin: 03/12/17 09:17 Dose: Not Given Polyethylene Glycol (Miralax) 17 gm PO BEDTIME PRN PRN Reason: Constipation Last Admin: 03/11/17 08:26 Dose: 17 gm Simvastatin (Zocor) 10 mg PO BEDTIME [facility] Last Admin: 03/11/17 20:30 Dose: 10 mg Sodium Chloride (Saline Flush) 10 ml FLUSH ONETIME PRN PRN Reason: IV FLUSH Last Admin: 03/09/17 10:03 Dose: 10 ml Vit A/Vit C/Vit E/Selen/Cu/Zn/Lutei (Icaps Mv) 1 tab PO BID [facility] Last Admin: 03/12/17 09:11 Dose: 1 tab Warfarin Sodium (Coumadin) 7.5 mg PO MoWeFr@1800 [facility] Last Admin: 03/09/17 17:37 Dose: 7.5 mg Warfarin Sodium (Coumadin) 5 mg PO SuTuThSa@1800 [facility] Last Admin: 03/11/17 17:00 Dose: 5 mg Discontinued Medications Bisacodyl (Dulcolax) 10 mg RECTAL ONETIME ONE Stop: 03/11/17 21:33 Last Admin: 03/12/17 00:27 Dose: Not Given Bisacodyl (Dulcolax) 10 mg RECTAL ONETIME ONE Stop: 03/11/17 21:53 Last Admin: 03/11/17 22:03 Dose: 10 mg Enoxaparin Sodium (Lovenox) 40 mg SUBCUT DAILY [facility] Last Admin: 03/09/17 10:01 Dose: Not Given Fentanyl (Duragesic) 12 mcg TRDERM Q72H [facility] Last Admin: 03/08/17 18:47 Dose: 12 mcg Fentanyl (Duragesic) 12 mcg TRDERM Q72H [facility] Last Admin: 03/11/17 11:50 Dose: 12 mcg Hydromorphone HCl (Dilaudid) 1 mg IVPUSH ONETIME ONE Stop: 03/08/17 11:07 Last Admin: 03/08/17 11:10 Dose: 1 mg Hydromorphone HCl (Dilaudid) Confirm Administered Dose 1 mg .ROUTE .STK-MED ONE Stop: 03/08/17 11:13 Last Admin: 03/08/17 11:16 Dose: Not Given Hydromorphone HCl (Dilaudid) 1 mg IVPUSH Q6H PRN PRN Reason: Pain (severe 7-10) Last Admin: 03/08/17 18:19 Dose: 1 mg Hydromorphone HCl (Dilaudid) 1 mg IVPUSH Q2H PRN PRN Reason: Pain Last Admin: 03/11/17 07:54 Dose: 1 mg Sodium Chloride (Normal Saline) 500 mls @ 250 mls/hr IV .BOLUS ONE Stop: 03/08/17 12:35 Last Admin: 03/08/17 10:42 Dose: 250 mls/hr Sodium Chloride (Normal Saline) Confirm Administered Dose 1,000 mls @ as directed .ROUTE .STK-MED ONE Stop: 03/08/17 10:45 Last Admin: 03/08/17 10:43 Dose: Not Given Lactated Ringer's (Ringers, Lactated) 1,000 mls @ 75 mls/hr IV ASDIRECTED [facility] Stop: 03/09/17 06:00 Last Admin: 03/08/17 20:00 Dose: 75 mls/hr Sodium Chloride (Normal Saline) 250 mls @ 250 mls/hr IV .BOLUS ONE Stop: 03/11/17 20:49 Last Admin: 03/11/17 20:06 Dose: Not Given Sodium Chloride (Normal Saline) 500 mls @ 500 mls/hr IV .BOLUS ONE Stop: 03/11/17 20:49 Last Admin: 03/11/17 20:10 Dose: Not Given Sodium Chloride (Normal Saline) 250 mls @ 250 mls/hr IV .BOLUS ONE Stop: 03/11/17 20:56 Last Admin: 03/11/17 20:28 Dose: 250 mls/hr Iopamidol (Isovue-300 (61%)) 100 ml IVPUSH ONETIME ONE Stop: 03/08/17 10:44 Last Admin: 03/08/17 11:23 Dose: 100 ml Ketorolac Tromethamine (Toradol) 15 mg IVPUSH Q8H [facility] Stop: 03/10/17 10:01 Last Admin: 03/10/17 10:17 Dose: 15 mg Ketorolac Tromethamine (Toradol) 30 mg IVPUSH ONETIME ONE Stop: 03/11/17 11:22 Last Admin: 03/11/17 11:49 Dose: 30 mg Ketorolac Tromethamine (Toradol) 15 mg IVPUSH Q6H [facility] Stop: 03/12/17 11:31 Ketorolac Tromethamine (Toradol) 15 mg IVPUSH Q6H [facility] Stop: 03/12/17 09:31 Last Admin: 03/12/17 09:11 Dose: 15 mg Magnesium Oxide (Magnesium Oxide) 400 mg PO DAILY [facility] Last Admin: 03/11/17 08:25 Dose: 400 mg Methylprednisolone Sodium Succinate (Solu-Medrol) 125 mg IVPUSH ONETIME ONE Stop: 03/11/17 19:53 Last Admin: 03/11/17 20:28 Dose: 125 mg Metoprolol Succinate (Toprol Xl) 100 mg PO DAILY [facility] Last Admin: 03/09/17 09:49 Dose: 100 mg Metoprolol Tartrate (Lopressor) 50 mg PO Q12HR [facility] Last Admin: 03/10/17 09:47 Dose: Not Given Metoprolol Tartrate (Lopressor) 50 mg PO ONETIME ONE Stop: 03/11/17 09:27 Last Admin: 03/11/17 09:35 Dose: Not Given Miscellaneous Information (Remove Patch) 1 ea TRDERM Q72H [facility] Miscellaneous Information (Remove Patch) 1 ea TRDERM Q72H [facility] Miscellaneous Information (Remove Patch) 1 ea TRDERM NOW STA Stop: 03/11/17 19:54 Last Admin: 03/11/17 20:41 Dose: 1 ea Morphine Sulfate (Morphine) 2 mg IVPUSH ONETIME ONE Stop: 03/08/17 10:36 Last Admin: 03/08/17 10:40 Dose: 2 mg Morphine Sulfate (Morphine) 2 mg IVPUSH ONETIME ONE Stop: 03/08/17 16:49 Last Admin: 03/08/17 18:05 Dose: Not Given Scopolamine (Scopolamine) 1 each TRDERM Q72H PRN PRN Reason: Nausea Vit A/Vit C/Vit E/Selen/Cu/Zn/Lutei (Icaps Mv) 2 tab PO BID [facility] Last Admin: 03/10/17 21:22 Dose: 1 tab - Exam Quality Assessment: Supplemental Oxygen, DVT Prophylaxis General: Alert, Oriented, Cooperative, No Acute Distress HEENT: Pupils Equal, Pupils Reactive, EOMI, Mucous Membr. Moist/[place] Neck: Supple, Trachea Midline, No JVD, No Thyromegaly Lungs: Normal Respiratory Effort, Decreased Breath Sounds (left lower lobe) Cardiovascular: Regular Rate, Regular Rhythm GI/Abdominal Exam: Normal Bowel Sounds, Soft, Non-Tender, No Organomegaly, No Distention, No Abnormal Bruit, No Mass, Pelvis Stable (Female) Exam: Deferred Back Exam: Normal Inspection, Full Range of Motion Extremities: Normal Inspection, Normal Range of Motion, Non-Tender, No Pedal Edema, Normal Capillary Refill Peripheral Pulses: 2+: Radial (L), Radial (R), Posterior Tibial (L), Posterior Tibial (R), Dorsalis Pedis (L), Dorsalis Pedis (R) Skin: Warm, Dry, Intact Neurological: No New Focal Deficit Psy/Mental Status: Alert, Normal Affect, Normal Mood - Problem List & Annotations (1) Multiple fractures of ribs, left side, initial encounter for closed fracture SNOMED Code(s): 62437039 Code(s): S22.42XA - MULTIPLE FRACTURES OF RIBS, LEFT SIDE, INIT FOR CLOS FX Status: Acute Priority: High Current Visit: Yes (2) Atrial fibrillation with RVR SNOMED Code(s): 277164790320132 Code(s): I48.91 - UNSPECIFIED ATRIAL FIBRILLATION Status: Chronic Priority: Low Current Visit: No (3) Chest pain SNOMED Code(s): 10531070 Code(s): R07.9 - CHEST PAIN, UNSPECIFIED Status: Acute Priority: Medium Current Visit: No Qualifiers: Chest pain type: unspecified Qualified Code(s): R07.9 - Chest pain, unspecified (4) Hypertension SNOMED Code(s): 50339426 Code(s): I10 - ESSENTIAL (PRIMARY) HYPERTENSION Status: Chronic Priority : Medium Current Visit: No Qualifiers: Hypertension type: essential hypertension Qualified Code(s): I10 - Essential (primary) hypertension (5) Hyperkalemia SNOMED Code(s): 78936662 Code(s): E87.5 - HYPERKALEMIA Status: Acute Priority: Medium Current Visit: Yes - Problem List Review Problem List Initiated/Reviewed/Updated: Yes - My Orders Last 24 Hours: My Active Orders 03/13/17 05:11 BASIC METABOLIC PANEL,BMP [CHEM] AM CBC WITH AUTO DIFF [HEME] AM MAGNESIUM [CHEM] AM - Plan Plan:: Impression: S/P fall with multiple rib fractures Recent increase in Metoprolol, dizziness when taken on an empty stomach - Will switch to metoprolol tartrate BID A Fib on coumadin without overt signs of hematoma CT scan reports left sided hemothorax with compressive left lower lobe atelectasis -Hold warfarin -Dr. Goss consult Hypekalemia -LR fluids Chronic CAD/PCI on Plavix HTN Macular Degeneration Fibromyalgia Hypothyroidism Aortic Aneursym Plan: Gen Surg consult re: rib fx, pleural effusion, follow as needed for PTX Pain mgt narcotic/non-narcotics; Toradol, change to Motrin in 24 hours; will try Fentanyl patch- Start Dilaudid scheduled PT/OT consults CSM consult Home meds Daily meds DVT/GI prophylaxis Adjustment of medical regimen to avoid hypotension Change Lopressor with parameters O2 as needed Considering SNF at [place], [facility].
[2017-03-12] MEDS ORDERED: Lactated Ringers 1,000 ML IV SCH (16:00)
--- NOTE | 2017-03-12 17:11 | PCM.DCSUM1 ---
Discharge Summary - Hospital Course HPI Initial Comments: 81 year old female s/p fall, hitting furniture with her back and left side. She felt dizzy after taking a hand full of her cardiac medication on an empty stomach. She has had a radiographic study that documents multiple left sided rib fractures. She is on coumadin as well as plavix for coronary stents. The patient stated that her metoprolol had been recently increased. She has had no N/V, SOB, CP, orthopnea, PND, syncopal/presyncopal episodes. The patient will be admitted to obs with telemetry. - Discharge Data Discharge Date: 03/12/17 (Admit date: 03/09/17) Discharge Disposition: DC/Tfer to Acute Hospital 02 Condition: Fair - Discharge Diagnosis/Problem(s) (1) Multiple fractures of ribs, left side, initial encounter for closed fracture SNOMED Code(s): 45134150 ICD Code: S22.42XA - MULTIPLE FRACTURES OF RIBS, LEFT SIDE, INIT FOR CLOS FX Status: Acute Priority: High Current Visit: Yes (2) Atrial fibrillation with RVR SNOMED Code(s): 227101055357774 ICD Code: I48.91 - UNSPECIFIED ATRIAL FIBRILLATION Status: Chronic Priority: Low Current Visit: No (3) Chest pain SNOMED Code(s): 36311565 ICD Code: R07.9 - CHEST PAIN, UNSPECIFIED Status: Acute Priority: Medium Current Visit: No Qualifiers: Chest pain type: unspecified Qualified Code(s): R07.9 - Chest pain, unspecified (4) Hypertension SNOMED Code(s): 76854306 ICD Code: I10 - ESSENTIAL (PRIMARY) HYPERTENSION Status: Chronic Priority : Medium Current Visit: No Qualifiers: Hypertension type: essential hypertension Qualified Code(s): I10 - Essential (primary) hypertension (5) Hyperkalemia SNOMED Code(s): 16900880 ICD Code: E87.5 - HYPERKALEMIA Status: Acute Priority: Medium Current Visit: Yes (6) Hemothorax on left SNOMED Code(s): 18135612 ICD Code: J94.2 - HEMOTHORAX Status: Acute Priority: High Current Visit : Yes - Patient Summary/Data Consults: Consultations 03/12/17 09:41 Consult to Physician [CONS] Routine - Patient Instructions Diet: Heart Healthy Diet - Discharge Plan Home Medications: Home Meds Alpha Lipoic Acid [Alpha-Lipoic Acid] 200 mg PO DAILY 08/10/14 [History] Amitriptyline [Elavil] 25 mg PO BEDTIME 08/10/14 [History] Cinnamon Bark [Cinnamon] 500 mg PO DAILY 08/10/14 [History] Fish Oil/[place]-3 Fatty Acids [Fish Oil] 1,200 mg PO DAILY 08/10/14 [History] Metoprolol Succinate [Toprol XL] 100 mg PO DAILY 08/10/14 [History] Ubidecarenone [Co Q-10] 100 mg PO DAILY 08/10/14 [History] Clopidogrel [Plavix] 75 mg PO DAILY 02/26/17 [History] Levothyroxine [Synthroid] 88 mcg PO DAILY 02/26/17 [History] Magnesium 250 mg PO DAILY 02/26/17 [History] Multivit-Min/FA/Lycopene/Lut [Centrum Silver Tablet] 1 tab PO DAILY 02/26/17 [ History] Lei Colon Health 1 tab PO DAILY 02/26/17 [History] Vit A/Vit C/Vit E/Zinc/Copper [Icaps Areds Formula] 1 tab PO BID 02/26/17 [ History] Warfarin [Coumadin] 5 mg PO SUTUTHSA 02/26/17 [History] Warfarin [Coumadin] 7.5 mg PO MOWEFR 02/26/17 [History] atorvaSTATin [Lipitor] 10 mg PO DAILY 02/26/17 [History] Forms: ED Department Discharge Referrals: Benoit Long MD [Primary Care Provider] - - General Info Date of Service: 03/12/17 Admission Dx/Problem (Free Text: Admission Diagnosis/Problem Admission Diagnosis/Problem Rib injury Subjective Update: In to see Nishi. She is sitting in the chair and doing well. She reports she feels better than yesterday. She reports pain with deep inspiration and movement unless she "moves just right." She was up walking with PT today. CT notes a large left sided effusion with loculations which is felt compatible with a hemothorax. It is also noted to be causing compression atelectasis of the left lower lobe. Rib fractures are noted to be stable. Dr. Goss has been consulted and will see the patient later today. Her Anion gap is elevated, as is her creatinine and potasium. Will order 100ml/hr for 6 hrs. to rehydrate, using caution as she has had some weight gain. Pain is currently controlled. She did have a small BM today per her report. - Review of Systems General: Reports: Weakness, Fatigue, Malaise. Denies: Fever, Chills HEENT: Reports: Other (Dry throat and nose ). Denies: Dysphasia, Glasses, Headaches, Sore Throat Pulmonary: Reports: Shortness of Breath, Pleuritic Chest Pain. Denies: Cough, Sputum, Hemoptysis, Wheezing Cardiovascular: Reports: Dyspnea on Exertion. Denies: Chest Pain, Palpitations , Orthopnea, Edema, Lightheadedness Gastrointestinal: Reports: Constipation. Denies: Abdominal Pain, Diarrhea, Nausea, Vomiting Genitourinary: Reports: No Symptoms. Denies: Dysuria, Frequency, Burning, Pain , Urgency Musculoskeletal: Reports: Other (left sided chest pain wiht movement ) Skin: Reports: No Symptoms Neurological: Reports: No Symptoms Psychiatric: Reports: No Symptoms - Patient Data Vitals - Most Recent: Last Vital Signs Temp 97.3 F 03/12/17 08:54 Pulse 83 03/12/17 13:10 Resp 19 03/12/17 08:54 BP 138/61 03/12/17 13:10 Pulse Ox 93 L 03/12/17 08:54 Weight - Most Recent: 192 lb I&O - Last 24 hours: Intake & Output 03/12/17 03/12/17 03/12/17 06:59 14:59 22:59 Intake Total 450 360 Output Total 600 Balance -150 360 Lab Results - Last 24 hrs: Laboratory Results - last 24 hr 03/12/17 03/12/17 03/12/17 Range/Units 06:05 06:05 06:05 WBC 16.52 H (3.98-10.04) K/mm3 RBC 3.57 L (3.98-5.22) M/mm3 Hgb 11.1 L (11.2-15.7) gm/L Hct 33.0 L (34.1-44.9) % MCV 92.4 (79.4-94.8) fl MCH 31.1 (25.6-32.2) pg MCHC 33.6 (32.2-35.5) g/dl RDW Std Deviation 43.7 (36.4-46.3) fL Plt Count 257 (182-369) K/mm3 MPV 9.8 (9.4-12.3) fl Neut % (Auto) 88.4 H (34.0-71.1) % Lymph % (Auto) 8.5 L (19.3-51.7) % [place] % (Auto) 2.6 L (4.7-12.5) % Eos % (Auto) 0.1 L (0.7-5.8) Baso % (Auto) 0.0 L (0.1-1.2) % Neut # (Auto) 14.61 H (1.56-6.13) K/mm3 Lymph # (Auto) 1.41 (1.18-3.74) K/mm3 [place] # (Auto) 0.43 H (0.24-0.36) K/mm3 Eos # (Auto) 0.01 L (0.04-0.36) K/mm3 Baso # (Auto) 0.00 L (0.01-0.08) K/mm3 Manual Slide Review Abnormal smear PT 22.6 H (8.0-13.0) SECONDS INR 1.98 Sodium 137 (136-145) mEq/L Potassium 5.5 H (3.5-5.1) mEq/L Chloride 102 (98-107) mEq/L Carbon Dioxide 25 (21-32) mEq/L Anion Gap 15.5 H (5-15) BUN 32 H (7-18) mg/dL Creatinine 1.6 H (0.55-1.02) mg/dL Est Cr Clr Drug Dosing 25.38 mL/min Estimated GFR (MDRD) 31 (>60) mL/min BUN/Creatinine Ratio 20.0 H (14-18) Glucose 136 H (83-115) mg/dL Calcium 8.8 (8.5-10.1) mg/dL Magnesium 2.4 (1.8-2.4) mg/dl Total Bilirubin 1.0 (0.2-1.0) mg/dL AST 34 (15-37) U/L ALT 49 (14-59) U/L Alkaline Phosphatase 83 (46-116) U/L Total Protein 6.8 (6.4-8.2) g/dl Albumin 3.1 L (3.4-5.0) g/dl Globulin 3.7 gm/dL Albumin/Globulin Ratio 0.8 L (1-2) Lipase 131 (73-393) U/L Med Orders - Current: Current Medications Hydrocodone Bitart/Acetaminophen ([place] 325-5 Mg) 1 tab PO Q4H PRN PRN Reason: Pain Last Admin: 03/12/17 16:26 Dose: 1 tab Amitriptyline HCl (Elavil) 25 mg PO BEDTIME [facility] Last Admin: 03/11/17 20:30 Dose: 25 mg Clopidogrel Bisulfate (Plavix) 75 mg PO DAILY [facility] Last Admin: 03/12/17 09:11 Dose: 75 mg Docusate Sodium (Colace) 100 mg PO BID [facility] Last Admin: 03/12/17 09:11 Dose: 100 mg Hydromorphone HCl (Dilaudid) 0.5 mg IVPUSH Q4H PRN PRN Reason: Pain Lactated Ringer's (Ringers, Lactated) 1,000 mls @ 100 mls/hr IV ASDIRECTED [facility] Stop: 03/12/17 22:00 Last Admin: 03/12/17 16:27 Dose: 100 mls/hr Levothyroxine Sodium (Synthroid) 88 mcg PO ACBREAKFAST [facility] Last Admin: 03/12/17 06:26 Dose: 88 mcg Magnesium Oxide (Magnesium Oxide) 400 mg PO BID [facility] Last Admin: 03/12/17 09:11 Dose: 400 mg Metoprolol Tartrate (Lopressor) 50 mg PO BID@1200,2100 [facility] Last Admin: 03/12/17 13:10 Dose: 50 mg Ondansetron HCl (Zofran) 4 mg IVPUSH Q8H PRN PRN Reason: Nausea/Vomiting Last Admin: 03/11/17 13:13 Dose: 4 mg Ptom: Ubidecarenone (100mg (Coenzyme-Q)) 1 each PO DAILY [facility] Last Admin: 03/12/17 09:17 Dose: Not Given Polyethylene Glycol (Miralax) 17 gm PO BEDTIME PRN PRN Reason: Constipation Last Admin: 03/11/17 08:26 Dose: 17 gm Simvastatin (Zocor) 10 mg PO BEDTIME [facility] Last Admin: 03/11/17 20:30 Dose: 10 mg Sodium Chloride (Saline Flush) 10 ml FLUSH ONETIME PRN PRN Reason: IV FLUSH Last Admin: 03/09/17 10:03 Dose: 10 ml Vit A/Vit C/Vit E/Selen/Cu/Zn/Lutei (Icaps Mv) 1 tab PO BID [facility] Last Admin: 03/12/17 09:11 Dose: 1 tab Warfarin Sodium (Coumadin) 7.5 mg PO MoWeFr@1800 [facility] Last Admin: 03/09/17 17:37 Dose: 7.5 mg Warfarin Sodium (Coumadin) 5 mg PO SuTuThSa@1800 [facility] Last Admin: 03/11/17 17:00 Dose: 5 mg Discontinued Medications Bisacodyl (Dulcolax) 10 mg RECTAL ONETIME ONE Stop: 03/11/17 21:33 Last Admin: 03/12/17 00:27 Dose: Not Given Bisacodyl (Dulcolax) 10 mg RECTAL ONETIME ONE Stop: 03/11/17 21:53 Last Admin: 03/11/17 22:03 Dose: 10 mg Enoxaparin Sodium (Lovenox) 40 mg SUBCUT DAILY [facility] Last Admin: 03/09/17 10:01 Dose: Not Given Fentanyl (Duragesic) 12 mcg TRDERM Q72H [facility] Last Admin: 03/08/17 18:47 Dose: 12 mcg Fentanyl (Duragesic) 12 mcg TRDERM Q72H [facility] Last Admin: 03/11/17 11:50 Dose: 12 mcg Hydromorphone HCl (Dilaudid) 1 mg IVPUSH ONETIME ONE Stop: 03/08/17 11:07 Last Admin: 03/08/17 11:10 Dose: 1 mg Hydromorphone HCl (Dilaudid) Confirm Administered Dose 1 mg .ROUTE .STK-MED ONE Stop: 03/08/17 11:13 Last Admin: 03/08/17 11:16 Dose: Not Given Hydromorphone HCl (Dilaudid) 1 mg IVPUSH Q6H PRN PRN Reason: Pain (severe 7-10) Last Admin: 03/08/17 18:19 Dose: 1 mg Hydromorphone HCl (Dilaudid) 1 mg IVPUSH Q2H PRN PRN Reason: Pain Last Admin: 03/11/17 07:54 Dose: 1 mg Sodium Chloride (Normal Saline) 500 mls @ 250 mls/hr IV .BOLUS ONE Stop: 03/08/17 12:35 Last Admin: 03/08/17 10:42 Dose: 250 mls/hr Sodium Chloride (Normal Saline) Confirm Administered Dose 1,000 mls @ as directed .ROUTE .STK-MED ONE Stop: 03/08/17 10:45 Last Admin: 03/08/17 10:43 Dose: Not Given Lactated Ringer's (Ringers, Lactated) 1,000 mls @ 75 mls/hr IV ASDIRECTED [facility] Stop: 03/09/17 06:00 Last Admin: 03/08/17 20:00 Dose: 75 mls/hr Sodium Chloride (Normal Saline) 250 mls @ 250 mls/hr IV .BOLUS ONE Stop: 03/11/17 20:49 Last Admin: 03/11/17 20:06 Dose: Not Given Sodium Chloride (Normal Saline) 500 mls @ 500 mls/hr IV .BOLUS ONE Stop: 03/11/17 20:49 Last Admin: 03/11/17 20:10 Dose: Not Given Sodium Chloride (Normal Saline) 250 mls @ 250 mls/hr IV .BOLUS ONE Stop: 03/11/17 20:56 Last Admin: 03/11/17 20:28 Dose: 250 mls/hr Iopamidol (Isovue-300 (61%)) 100 ml IVPUSH ONETIME ONE Stop: 03/08/17 10:44 Last Admin: 03/08/17 11:23 Dose: 100 ml Ketorolac Tromethamine (Toradol) 15 mg IVPUSH Q8H [facility] Stop: 03/10/17 10:01 Last Admin: 03/10/17 10:17 Dose: 15 mg Ketorolac Tromethamine (Toradol) 30 mg IVPUSH ONETIME ONE Stop: 03/11/17 11:22 Last Admin: 03/11/17 11:49 Dose: 30 mg Ketorolac Tromethamine (Toradol) 15 mg IVPUSH Q6H [facility] Stop: 03/12/17 11:31 Ketorolac Tromethamine (Toradol) 15 mg IVPUSH Q6H [facility] Stop: 03/12/17 09:31 Last Admin: 03/12/17 09:11 Dose: 15 mg Magnesium Oxide (Magnesium Oxide) 400 mg PO DAILY [facility] Last Admin: 03/11/17 08:25 Dose: 400 mg Methylprednisolone Sodium Succinate (Solu-Medrol) 125 mg IVPUSH ONETIME ONE Stop: 03/11/17 19:53 Last Admin: 03/11/17 20:28 Dose: 125 mg Metoprolol Succinate (Toprol Xl) 100 mg PO DAILY [facility] Last Admin: 03/09/17 09:49 Dose: 100 mg Metoprolol Tartrate (Lopressor) 50 mg PO Q12HR [facility] Last Admin: 03/10/17 09:47 Dose: Not Given Metoprolol Tartrate (Lopressor) 50 mg PO ONETIME ONE Stop: 03/11/17 09:27 Last Admin: 03/11/17 09:35 Dose: Not Given Miscellaneous Information (Remove Patch) 1 ea TRDERM Q72H [facility] Miscellaneous Information (Remove Patch) 1 ea TRDERM Q72H [facility] Miscellaneous Information (Remove Patch) 1 ea TRDERM NOW STA Stop: 03/11/17 19:54 Last Admin: 03/11/17 20:41 Dose: 1 ea Morphine Sulfate (Morphine) 2 mg IVPUSH ONETIME ONE Stop: 03/08/17 10:36 Last Admin: 03/08/17 10:40 Dose: 2 mg Morphine Sulfate (Morphine) 2 mg IVPUSH ONETIME ONE Stop: 03/08/17 16:49 Last Admin: 03/08/17 18:05 Dose: Not Given Scopolamine (Scopolamine) 1 each TRDERM Q72H PRN PRN Reason: Nausea Vit A/Vit C/Vit E/Selen/Cu/Zn/Lutei (Icaps Mv) 2 tab PO BID [facility] Last Admin: 03/10/17 21:22 Dose: 1 tab - Exam Quality Assessment: Reports: Supplemental Oxygen, DVT Prophylaxis General: Reports: Alert, Oriented, Cooperative, No Acute Distress HEENT: Reports: Pupils Equal, Pupils Reactive, EOMI, Mucous Membr. Moist/[place] Neck: Reports: Supple, Trachea Midline, No JVD, No Thyromegaly Lungs: Reports: Normal Respiratory Effort, Decreased Breath Sounds (left side ) Cardiovascular: Reports: Regular Rate, Regular Rhythm GI/Abdominal Exam: Normal Bowel Sounds, Soft, Non-Tender, No Organomegaly, No Distention, No Abnormal Bruit, No Mass, Pelvis Stable (Female) Exam: Deferred Rectal (Female) Exam: Deferred Back Exam: Reports: Normal Inspection, Decreased Range of Motion (pain on left side with movement ), Other (scattered bruising on left side ) Extremities: Normal Range of Motion, Non-Tender, No Pedal Edema, Normal Capillary Refill, Other (Scattered bruising on right arm ) Skin: Reports: Warm, Dry, Intact Neurological: Reports: No New Focal Deficit Psy/Mental Status: Reports: Alert, Normal Affect, Normal Mood, Other (She does occasionally repeat statements she has already made. ) *Q Meaningful Use (DIS) - VTE *Q VTE Criteria *Q: - Stroke *Q Stroke Criteria *Q: - AMI *Q AMI Criteria *Q:
[2017-03-12] MEDS: HYDROmorphone 0.5 MG/0.5 ML Syringe IVPUSH PRN ×2 (17:35→21:48)
--- NOTE | 2017-03-12 18:48 | PCM.CONSN ---
- General Info Date of Service: 03/12/17 Functional Status: Reports: Pain Controlled - Review of Systems Pulmonary: Reports: Other (needing adtional O2 to keep saturation above 90) Gastrointestinal: Reports: No Symptoms, Other (destention but is passing gas ) - Patient Data Vitals - Most Recent: Last Vital Signs Temp 98.6 F 03/12/17 16:21 Pulse 73 03/12/17 17:22 Resp 17 03/12/17 16:21 BP 120/86 03/12/17 16:21 Pulse Ox 91 L 03/12/17 17:22 Weight - Most Recent: 87.09 kg I&O - Last 24 Hours: Intake & Output 03/12/17 03/12/17 03/12/17 07:59 15:59 23:59 Intake Total 450 360 Output Total 600 Balance -150 360 Lab Results Last 24 Hours: Laboratory Results - last 24 hr 03/12/17 03/12/17 03/12/17 Range/Units 06:05 06:05 06:05 WBC 16.52 H (3.98-10.04) K/mm3 RBC 3.57 L (3.98-5.22) M/mm3 Hgb 11.1 L (11.2-15.7) gm/L Hct 33.0 L (34.1-44.9) % MCV 92.4 (79.4-94.8) fl MCH 31.1 (25.6-32.2) pg MCHC 33.6 (32.2-35.5) g/dl RDW Std Deviation 43.7 (36.4-46.3) fL Plt Count 257 (182-369) K/mm3 MPV 9.8 (9.4-12.3) fl Neut % (Auto) 88.4 H (34.0-71.1) % Lymph % (Auto) 8.5 L (19.3-51.7) % [place] % (Auto) 2.6 L (4.7-12.5) % Eos % (Auto) 0.1 L (0.7-5.8) Baso % (Auto) 0.0 L (0.1-1.2) % Neut # (Auto) 14.61 H (1.56-6.13) K/mm3 Lymph # (Auto) 1.41 (1.18-3.74) K/mm3 [place] # (Auto) 0.43 H (0.24-0.36) K/mm3 Eos # (Auto) 0.01 L (0.04-0.36) K/mm3 Baso # (Auto) 0.00 L (0.01-0.08) K/mm3 Manual Slide Review Abnormal smear PT 22.6 H (8.0-13.0) SECONDS INR 1.98 Sodium 137 (136-145) mEq/L Potassium 5.5 H (3.5-5.1) mEq/L Chloride 102 (98-107) mEq/L Carbon Dioxide 25 (21-32) mEq/L Anion Gap 15.5 H (5-15) BUN 32 H (7-18) mg/dL Creatinine 1.6 H (0.55-1.02) mg/dL Est Cr Clr Drug Dosing 25.38 mL/min Estimated GFR (MDRD) 31 (>60) mL/min BUN/Creatinine Ratio 20.0 H (14-18) Glucose 136 H (83-115) mg/dL Calcium 8.8 (8.5-10.1) mg/dL Magnesium 2.4 (1.8-2.4) mg/dl Total Bilirubin 1.0 (0.2-1.0) mg/dL AST 34 (15-37) U/L ALT 49 (14-59) U/L Alkaline Phosphatase 83 (46-116) U/L Total Protein 6.8 (6.4-8.2) g/dl Albumin 3.1 L (3.4-5.0) g/dl Globulin 3.7 gm/dL Albumin/Globulin Ratio 0.8 L (1-2) Lipase 131 (73-393) U/L Med Orders - Current: Current Medications Hydrocodone Bitart/Acetaminophen ([place] 325-5 Mg) 1 tab PO Q4H PRN PRN Reason: Pain Last Admin: 03/12/17 16:26 Dose: 1 tab Amitriptyline HCl (Elavil) 25 mg PO BEDTIME [facility] Last Admin: 03/11/17 20:30 Dose: 25 mg Clopidogrel Bisulfate (Plavix) 75 mg PO DAILY [facility] Last Admin: 03/12/17 09:11 Dose: 75 mg Docusate Sodium (Colace) 100 mg PO BID [facility] Last Admin: 03/12/17 09:11 Dose: 100 mg Hydromorphone HCl (Dilaudid) 0.5 mg IVPUSH Q4H PRN PRN Reason: Pain Last Admin: 03/12/17 17:35 Dose: 0.5 mg Lactated Ringer's (Ringers, Lactated) 1,000 mls @ 100 mls/hr IV ASDIRECTED [facility] Stop: 03/12/17 22:00 Last Admin: 03/12/17 16:27 Dose: 100 mls/hr Levothyroxine Sodium (Synthroid) 88 mcg PO ACBREAKFAST [facility] Last Admin: 03/12/17 06:26 Dose: 88 mcg Magnesium Oxide (Magnesium Oxide) 400 mg PO BID [facility] Last Admin: 03/12/17 09:11 Dose: 400 mg Metoprolol Tartrate (Lopressor) 50 mg PO BID@1200,2100 [facility] Last Admin: 03/12/17 13:10 Dose: 50 mg Ondansetron HCl (Zofran) 4 mg IVPUSH Q8H PRN PRN Reason: Nausea/Vomiting Last Admin: 03/11/17 13:13 Dose: 4 mg Ptom: Ubidecarenone (100mg (Coenzyme-Q)) 1 each PO DAILY [facility] Last Admin: 03/12/17 09:17 Dose: Not Given Polyethylene Glycol (Miralax) 17 gm PO BEDTIME PRN PRN Reason: Constipation Last Admin: 03/11/17 08:26 Dose: 17 gm Simvastatin (Zocor) 10 mg PO BEDTIME [facility] Last Admin: 03/11/17 20:30 Dose: 10 mg Sodium Chloride (Saline Flush) 10 ml FLUSH ONETIME PRN PRN Reason: IV FLUSH Last Admin: 03/09/17 10:03 Dose: 10 ml Vit A/Vit C/Vit E/Selen/Cu/Zn/Lutei (Icaps Mv) 1 tab PO BID [facility] Last Admin: 03/12/17 09:11 Dose: 1 tab Warfarin Sodium (Coumadin) 7.5 mg PO MoWeFr@1800 [facility] Last Admin: 03/09/17 17:37 Dose: 7.5 mg Warfarin Sodium (Coumadin) 5 mg PO SuTuThSa@1800 [facility] Last Admin: 03/11/17 17:00 Dose: 5 mg Discontinued Medications Bisacodyl (Dulcolax) 10 mg RECTAL ONETIME ONE Stop: 03/11/17 21:33 Last Admin: 03/12/17 00:27 Dose: Not Given Bisacodyl (Dulcolax) 10 mg RECTAL ONETIME ONE Stop: 03/11/17 21:53 Last Admin: 03/11/17 22:03 Dose: 10 mg Enoxaparin Sodium (Lovenox) 40 mg SUBCUT DAILY [facility] Last Admin: 03/09/17 10:01 Dose: Not Given Fentanyl (Duragesic) 12 mcg TRDERM Q72H [facility] Last Admin: 03/08/17 18:47 Dose: 12 mcg Fentanyl (Duragesic) 12 mcg TRDERM Q72H [facility] Last Admin: 03/11/17 11:50 Dose: 12 mcg Hydromorphone HCl (Dilaudid) 1 mg IVPUSH ONETIME ONE Stop: 03/08/17 11:07 Last Admin: 03/08/17 11:10 Dose: 1 mg Hydromorphone HCl (Dilaudid) Confirm Administered Dose 1 mg .ROUTE .STK-MED ONE Stop: 03/08/17 11:13 Last Admin: 03/08/17 11:16 Dose: Not Given Hydromorphone HCl (Dilaudid) 1 mg IVPUSH Q6H PRN PRN Reason: Pain (severe 7-10) Last Admin: 03/08/17 18:19 Dose: 1 mg Hydromorphone HCl (Dilaudid) 1 mg IVPUSH Q2H PRN PRN Reason: Pain Last Admin: 03/11/17 07:54 Dose: 1 mg Sodium Chloride (Normal Saline) 500 mls @ 250 mls/hr IV .BOLUS ONE Stop: 03/08/17 12:35 Last Admin: 03/08/17 10:42 Dose: 250 mls/hr Sodium Chloride (Normal Saline) Confirm Administered Dose 1,000 mls @ as directed .ROUTE .STK-MED ONE Stop: 03/08/17 10:45 Last Admin: 03/08/17 10:43 Dose: Not Given Lactated Ringer's (Ringers, Lactated) 1,000 mls @ 75 mls/hr IV ASDIRECTED [facility] Stop: 03/09/17 06:00 Last Admin: 03/08/17 20:00 Dose: 75 mls/hr Sodium Chloride (Normal Saline) 250 mls @ 250 mls/hr IV .BOLUS ONE Stop: 03/11/17 20:49 Last Admin: 03/11/17 20:06 Dose: Not Given Sodium Chloride (Normal Saline) 500 mls @ 500 mls/hr IV .BOLUS ONE Stop: 03/11/17 20:49 Last Admin: 03/11/17 20:10 Dose: Not Given Sodium Chloride (Normal Saline) 250 mls @ 250 mls/hr IV .BOLUS ONE Stop: 03/11/17 20:56 Last Admin: 03/11/17 20:28 Dose: 250 mls/hr Iopamidol (Isovue-300 (61%)) 100 ml IVPUSH ONETIME ONE Stop: 03/08/17 10:44 Last Admin: 03/08/17 11:23 Dose: 100 ml Ketorolac Tromethamine (Toradol) 15 mg IVPUSH Q8H [facility] Stop: 03/10/17 10:01 Last Admin: 03/10/17 10:17 Dose: 15 mg Ketorolac Tromethamine (Toradol) 30 mg IVPUSH ONETIME ONE Stop: 03/11/17 11:22 Last Admin: 03/11/17 11:49 Dose: 30 mg Ketorolac Tromethamine (Toradol) 15 mg IVPUSH Q6H [facility] Stop: 03/12/17 11:31 Ketorolac Tromethamine (Toradol) 15 mg IVPUSH Q6H [facility] Stop: 03/12/17 09:31 Last Admin: 03/12/17 09:11 Dose: 15 mg Magnesium Oxide (Magnesium Oxide) 400 mg PO DAILY [facility] Last Admin: 03/11/17 08:25 Dose: 400 mg Methylprednisolone Sodium Succinate (Solu-Medrol) 125 mg IVPUSH ONETIME ONE Stop: 03/11/17 19:53 Last Admin: 03/11/17 20:28 Dose: 125 mg Metoprolol Succinate (Toprol Xl) 100 mg PO DAILY [facility] Last Admin: 03/09/17 09:49 Dose: 100 mg Metoprolol Tartrate (Lopressor) 50 mg PO Q12HR [facility] Last Admin: 03/10/17 09:47 Dose: Not Given Metoprolol Tartrate (Lopressor) 50 mg PO ONETIME ONE Stop: 03/11/17 09:27 Last Admin: 03/11/17 09:35 Dose: Not Given Miscellaneous Information (Remove Patch) 1 ea TRDERM Q72H [facility] Miscellaneous Information (Remove Patch) 1 ea TRDERM Q72H [facility] Miscellaneous Information (Remove Patch) 1 ea TRDERM NOW STA Stop: 03/11/17 19:54 Last Admin: 03/11/17 20:41 Dose: 1 ea Morphine Sulfate (Morphine) 2 mg IVPUSH ONETIME ONE Stop: 03/08/17 10:36 Last Admin: 03/08/17 10:40 Dose: 2 mg Morphine Sulfate (Morphine) 2 mg IVPUSH ONETIME ONE Stop: 03/08/17 16:49 Last Admin: 03/08/17 18:05 Dose: Not Given Scopolamine (Scopolamine) 1 each TRDERM Q72H PRN PRN Reason: Nausea Vit A/Vit C/Vit E/Selen/Cu/Zn/Lutei (Icaps Mv) 2 tab PO BID JOHNNY Last Admin: 03/10/17 21:22 Dose: 1 tab - Exam Quality Assessment: Supplemental Oxygen General: Alert, Oriented Lungs: Decreased Breath Sounds (left base ) GI/Abdominal Exam: Non-Tender, Distended Consult PN Assessment/Plan Procedures: Procedures ASSAY OF AMYLASE (01/02/15) ASSAY OF LACTIC ACID (01/02/15) ASSAY OF LIPASE (01/02/15) ASSAY OF MAGNESIUM (01/02/15) ASSAY OF PHOSPHORUS (01/02/15) ASSAY OF TROPONIN QUANT (02/26/17) ASSAY THYROID STIM HORMONE (02/26/17) CHEST X-RAY 1 VIEW FRONTAL (02/26/17) COMPLETE CBC W/AUTO DIFF WBC (02/26/17) COMPREHEN METABOLIC PANEL (02/26/17) CT ABD & PELV W/CONTRAST (01/02/15) CT ABD & PELVIS W/O CONTRAST (01/07/15) CT THORAX W/DYE (01/02/15) CT THORAX W/O DYE (07/26/15) DXA BONE DENSITY AXIAL (05/18/16) ELECTROCARDIOGRAM TRACING (02/26/17) EMERGENCY DEPT VISIT (02/26/17) EMERGENCY DEPT VISIT (08/10/14) FIBRIN DEGRADATION QUANT (01/07/15) GLYCOSYLATED HEMOGLOBIN TEST (01/19/14) HYDRATE IV INFUSION ADD-ON (01/02/15) LIPID PANEL (06/22/14) MICROBE SUSCEPTIBLE NAIMA (01/02/15) ROUTINE VENIPUNCTURE (02/26/17) RPR S/N/AX/GEN/TRNK 2.5CM/< (08/10/14) THER/PROPH/DIAG IV INF ADDON (02/26/17) THER/PROPH/DIAG IV INF INIT (02/26/17) TISSUE EXAM BY PATHOLOGIST (01/06/15) TX/PRO/DX INJ NEW DRUG ADDON (01/02/15) TX/PRO/DX INJ SAME DRUG [employer]IC (02/26/17) URINALYSIS AUTO W/SCOPE (01/02/15) URINE BACTERIA CULTURE (01/02/15) URINE CULTURE/COLONY COUNT (01/02/15) Problem List Initiated/Reviewed/Updated: Yes My Orders Last 24 Hours: My Active Orders 03/11/17 21:31 Enema [RC] ASDIRECTED 03/12/17 09:02 Enema [RC] ASDIRECTED 03/12/17 17:35 Chest [US] Routine Plan: hb has come up after IV fluids CXR shows a large collection of fluid in the left pleural space Hb dsropp 13 to 11 ass bleedin pleural space ass hemothorax plan do ct scan CT of chest done showing hemothorax, discussed with Dr. Hendrickson and he would like a CT place will do this and hold the anticoagulation discussed he procedure with the pt risk and complictions she understand and consents.
--- NOTE | 2017-03-12 18:49 | PCM.OPNOTE ---
- General Post-Op/Procedure Note Date of Surgery/Procedure: 03/12/17 Operative Procedure(s): place chest tube 40F Findings: 1000cc of bloody fluid Pre Op Diagnosis: hemothorax Post-Op Diagnosis: Same Anesthesia Technique: Local Primary Surgeon: Kayode Goss Condition: Fair Free Text/Narrative:: Intake & Output 03/12/17 03/12/17 03/12/17 07:59 15:59 23:59 Intake Total 450 360 Output Total 600 Balance -150 360
--- NOTE | 2017-03-12 19:22 | CR ---
Chest: Expiratory view of the chest was obtained. Comparison: Prior chest CT performed earlier on the same day. Left-sided pneumothorax is seen measuring around 30%. Left basilar chest tube is seen. Parenchymal density is noted within the left mid and lower lung compatible with continuing atelectasis. Left-sided rib fractures are again seen. Sternotomy is noted. Calcified breast prosthesis are again noted. Impression: 1. Left basilar chest tube. 2. Left-sided pneumothorax measuring around 30%. 3. Significant atelectasis remains within the mid and lower lung. 4. Other incidental findings. Diagnostic code #3
[2017-03-12] MEDS: Amitriptyline 25 MG Tab PO SCH (21:15)
[2017-03-12] MEDS: Simvastatin 10 MG Tab PO SCH (21:16)
[2017-03-12] MEDS ORDERED: Acetaminophen/HYDROcodone 325-5 MG Tab PO ONE (23:58)
[2017-03-13] MEDS: Ondansetron 4 MG/2 ML SDV IVPUSH PRN (01:38)
[2017-03-13] MEDS: HYDROmorphone 0.5 MG/0.5 ML Syringe IVPUSH PRN ×3 (01:48→10:27)
[2017-03-13] MEDS: Acetaminophen/HYDROcodone 325-5 MG Tab PO PRN (04:21)
[2017-03-13] MEDS: Levothyroxine 88 MCG Tab PO SCH (05:54)
--- NOTE | 2017-03-13 06:49 | PCM.SURGPN ---
- General Info Date of Service: 03/13/17 - Patient Data Vitals - Most Recent: Last Vital Signs Temp 98.1 F 03/13/17 04:00 Pulse 81 03/13/17 04:00 Resp 17 03/13/17 04:00 BP 130/55 L 03/13/17 04:00 Pulse Ox 93 L 03/13/17 04:00 Weight - Most Recent: 87.997 kg I&O - Last 24 Hours: Intake & Output 03/12/17 03/12/17 03/13/17 15:59 23:59 07:59 Intake Total 360 200 582 Output Total 1500 400 Balance 360 -1300 182 Lab Results Last 24 Hrs: Laboratory Results - last 24 hr 03/12/17 03/12/17 03/12/17 Range/Units 06:05 06:05 06:05 WBC 16.52 H (3.98-10.04) K/mm3 RBC 3.57 L (3.98-5.22) M/mm3 Hgb 11.1 L (11.2-15.7) gm/L Hct 33.0 L (34.1-44.9) % MCV 92.4 (79.4-94.8) fl MCH 31.1 (25.6-32.2) pg MCHC 33.6 (32.2-35.5) g/dl RDW Std Deviation 43.7 (36.4-46.3) fL Plt Count 257 (182-369) K/mm3 MPV 9.8 (9.4-12.3) fl Neut % (Auto) 88.4 H (34.0-71.1) % Lymph % (Auto) 8.5 L (19.3-51.7) % [place] % (Auto) 2.6 L (4.7-12.5) % Eos % (Auto) 0.1 L (0.7-5.8) Baso % (Auto) 0.0 L (0.1-1.2) % Neut # (Auto) 14.61 H (1.56-6.13) K/mm3 Lymph # (Auto) 1.41 (1.18-3.74) K/mm3 [place] # (Auto) 0.43 H (0.24-0.36) K/mm3 Eos # (Auto) 0.01 L (0.04-0.36) K/mm3 Baso # (Auto) 0.00 L (0.01-0.08) K/mm3 Manual Slide Review Abnormal smear PT 22.6 H (8.0-13.0) SECONDS INR 1.98 Sodium 137 (136-145) mEq/L Potassium 5.5 H (3.5-5.1) mEq/L Chloride 102 (98-107) mEq/L Carbon Dioxide 25 (21-32) mEq/L Anion Gap 15.5 H (5-15) BUN 32 H (7-18) mg/dL Creatinine 1.6 H (0.55-1.02) mg/dL Est Cr Clr Drug Dosing 25.38 mL/min Estimated GFR (MDRD) 31 (>60) mL/min BUN/Creatinine Ratio 20.0 H (14-18) Glucose 136 H (83-115) mg/dL Calcium 8.8 (8.5-10.1) mg/dL Magnesium 2.4 (1.8-2.4) mg/dl Total Bilirubin 1.0 (0.2-1.0) mg/dL AST 34 (15-37) U/L ALT 49 (14-59) U/L Alkaline Phosphatase 83 (46-116) U/L Troponin I (0.00-0.056) ng/mL Total Protein 6.8 (6.4-8.2) g/dl Albumin 3.1 L (3.4-5.0) g/dl Globulin 3.7 gm/dL Albumin/Globulin Ratio 0.8 L (1-2) Lipase 131 (73-393) U/L Blood Type Gel Antibody Screen 03/12/17 03/12/17 03/13/17 Range/Units 06:05 20:54 01:05 WBC (3.98-10.04) K/mm3 RBC (3.98-5.22) M/mm3 Hgb 10.4 L (11.2-15.7) gm/L Hct 31.2 L (34.1-44.9) % MCV (79.4-94.8) fl MCH (25.6-32.2) pg MCHC (32.2-35.5) g/dl RDW Std Deviation (36.4-46.3) fL Plt Count (182-369) K/mm3 MPV (9.4-12.3) fl Neut % (Auto) (34.0-71.1) % Lymph % (Auto) (19.3-51.7) % [place] % (Auto) (4.7-12.5) % Eos % (Auto) (0.7-5.8) Baso % (Auto) (0.1-1.2) % Neut # (Auto) (1.56-6.13) K/mm3 Lymph # (Auto) (1.18-3.74) K/mm3 [place] # (Auto) (0.24-0.36) K/mm3 Eos # (Auto) (0.04-0.36) K/mm3 Baso # (Auto) (0.01-0.08) K/mm3 Manual Slide Review PT (8.0-13.0) SECONDS INR Sodium (136-145) mEq/L Potassium (3.5-5.1) mEq/L Chloride (98-107) mEq/L Carbon Dioxide (21-32) mEq/L Anion Gap (5-15) BUN (7-18) mg/dL Creatinine (0.55-1.02) mg/dL Est Cr Clr Drug Dosing mL/min Estimated GFR (MDRD) (>60) mL/min BUN/Creatinine Ratio (14-18) Glucose (83-115) mg/dL Calcium (8.5-10.1) mg/dL Magnesium (1.8-2.4) mg/dl Total Bilirubin (0.2-1.0) mg/dL AST (15-37) U/L ALT (14-59) U/L Alkaline Phosphatase (46-116) U/L Troponin I 0.053 (0.00-0.056) ng/mL Total Protein (6.4-8.2) g/dl Albumin (3.4-5.0) g/dl Globulin gm/dL Albumin/Globulin Ratio (1-2) Lipase (73-393) U/L Blood Type O NEGATIVE Gel Antibody Screen Negative Med Orders - Current: Current Medications Hydrocodone Bitart/Acetaminophen ([place] 325-5 Mg) 1 tab PO Q4H PRN PRN Reason: Pain Last Admin: 03/13/17 04:21 Dose: 1 tab Amitriptyline HCl (Elavil) 25 mg PO BEDTIME [facility] Last Admin: 03/12/17 21:15 Dose: 25 mg Clopidogrel Bisulfate (Plavix) 75 mg PO DAILY [facility] Last Admin: 03/12/17 09:11 Dose: 75 mg Docusate Sodium (Colace) 100 mg PO BID [facility] Last Admin: 03/12/17 21:16 Dose: 100 mg Hydromorphone HCl (Dilaudid) 0.5 mg IVPUSH Q4H PRN PRN Reason: Pain Last Admin: 03/13/17 05:50 Dose: 0.5 mg Levothyroxine Sodium (Synthroid) 88 mcg PO ACBREAKFAST [facility] Last Admin: 03/13/17 05:54 Dose: 88 mcg Magnesium Oxide (Magnesium Oxide) 400 mg PO BID [facility] Last Admin: 03/12/17 21:16 Dose: 400 mg Metoprolol Tartrate (Lopressor) 50 mg PO BID@1200,2100 [facility] Last Admin: 03/12/17 22:50 Dose: Not Given Ondansetron HCl (Zofran) 4 mg IVPUSH Q8H PRN PRN Reason: Nausea/Vomiting Last Admin: 03/13/17 01:38 Dose: 4 mg Ptom: Ubidecarenone (100mg (Coenzyme-Q)) 1 each PO DAILY [facility] Last Admin: 03/12/17 09:17 Dose: Not Given Polyethylene Glycol (Miralax) 17 gm PO BEDTIME PRN PRN Reason: Constipation Last Admin: 03/11/17 08:26 Dose: 17 gm Simvastatin (Zocor) 10 mg PO BEDTIME [facility] Last Admin: 03/12/17 21:16 Dose: 10 mg Sodium Chloride (Saline Flush) 10 ml FLUSH ONETIME PRN PRN Reason: IV FLUSH Last Admin: 03/09/17 10:03 Dose: 10 ml Vit A/Vit C/Vit E/Selen/Cu/Zn/Lutei (Icaps Mv) 1 tab PO BID [facility] Last Admin: 03/12/17 21:16 Dose: 1 tab Warfarin Sodium (Coumadin) 7.5 mg PO MoWeFr@1800 [facility] Last Admin: 03/09/17 17:37 Dose: 7.5 mg Warfarin Sodium (Coumadin) 5 mg PO SuTuThSa@1800 [facility] Last Admin: 03/11/17 17:00 Dose: 5 mg Discontinued Medications Hydrocodone Bitart/Acetaminophen ([place] 325-5 Mg) 1 tab PO ONETIME ONE Stop: 03/12/17 23:59 Last Admin: 03/13/17 00:07 Dose: 1 tab Bisacodyl (Dulcolax) 10 mg RECTAL ONETIME ONE Stop: 03/11/17 21:33 Last Admin: 03/12/17 00:27 Dose: Not Given Bisacodyl (Dulcolax) 10 mg RECTAL ONETIME ONE Stop: 03/11/17 21:53 Last Admin: 03/11/17 22:03 Dose: 10 mg Enoxaparin Sodium (Lovenox) 40 mg SUBCUT DAILY [facility] Last Admin: 03/09/17 10:01 Dose: Not Given Fentanyl (Duragesic) 12 mcg TRDERM Q72H [facility] Last Admin: 03/08/17 18:47 Dose: 12 mcg Fentanyl (Duragesic) 12 mcg TRDERM Q72H [facility] Last Admin: 03/11/17 11:50 Dose: 12 mcg Hydromorphone HCl (Dilaudid) 1 mg IVPUSH ONETIME ONE Stop: 03/08/17 11:07 Last Admin: 03/08/17 11:10 Dose: 1 mg Hydromorphone HCl (Dilaudid) Confirm Administered Dose 1 mg .ROUTE .STK-MED ONE Stop: 03/08/17 11:13 Last Admin: 03/08/17 11:16 Dose: Not Given Hydromorphone HCl (Dilaudid) 1 mg IVPUSH Q6H PRN PRN Reason: Pain (severe 7-10) Last Admin: 03/08/17 18:19 Dose: 1 mg Hydromorphone HCl (Dilaudid) 1 mg IVPUSH Q2H PRN PRN Reason: Pain Last Admin: 03/11/17 07:54 Dose: 1 mg Sodium Chloride (Normal Saline) 500 mls @ 250 mls/hr IV .BOLUS ONE Stop: 03/08/17 12:35 Last Admin: 03/08/17 10:42 Dose: 250 mls/hr Sodium Chloride (Normal Saline) Confirm Administered Dose 1,000 mls @ as directed .ROUTE .STK-MED ONE Stop: 03/08/17 10:45 Last Admin: 03/08/17 10:43 Dose: Not Given Lactated Ringer's (Ringers, Lactated) 1,000 mls @ 75 mls/hr IV ASDIRECTED [facility] Stop: 03/09/17 06:00 Last Admin: 03/08/17 20:00 Dose: 75 mls/hr Sodium Chloride (Normal Saline) 250 mls @ 250 mls/hr IV .BOLUS ONE Stop: 03/11/17 20:49 Last Admin: 03/11/17 20:06 Dose: Not Given Sodium Chloride (Normal Saline) 500 mls @ 500 mls/hr IV .BOLUS ONE Stop: 03/11/17 20:49 Last Admin: 03/11/17 20:10 Dose: Not Given Sodium Chloride (Normal Saline) 250 mls @ 250 mls/hr IV .BOLUS ONE Stop: 03/11/17 20:56 Last Admin: 03/11/17 20:28 Dose: 250 mls/hr Lactated Ringer's (Ringers, Lactated) 1,000 mls @ 100 mls/hr IV ASDIRECTED [facility] Stop: 03/12/17 22:00 Last Admin: 03/12/17 16:27 Dose: 100 mls/hr Iopamidol (Isovue-300 (61%)) 100 ml IVPUSH ONETIME ONE Stop: 03/08/17 10:44 Last Admin: 03/08/17 11:23 Dose: 100 ml Ketorolac Tromethamine (Toradol) 15 mg IVPUSH Q8H [facility] Stop: 03/10/17 10:01 Last Admin: 03/10/17 10:17 Dose: 15 mg Ketorolac Tromethamine (Toradol) 30 mg IVPUSH ONETIME ONE Stop: 03/11/17 11:22 Last Admin: 03/11/17 11:49 Dose: 30 mg Ketorolac Tromethamine (Toradol) 15 mg IVPUSH Q6H [facility] Stop: 03/12/17 11:31 Ketorolac Tromethamine (Toradol) 15 mg IVPUSH Q6H [facility] Stop: 03/12/17 09:31 Last Admin: 03/12/17 09:11 Dose: 15 mg Magnesium Oxide (Magnesium Oxide) 400 mg PO DAILY [facility] Last Admin: 03/11/17 08:25 Dose: 400 mg Methylprednisolone Sodium Succinate (Solu-Medrol) 125 mg IVPUSH ONETIME ONE Stop: 03/11/17 19:53 Last Admin: 03/11/17 20:28 Dose: 125 mg Metoprolol Succinate (Toprol Xl) 100 mg PO DAILY [facility] Last Admin: 03/09/17 09:49 Dose: 100 mg Metoprolol Tartrate (Lopressor) 50 mg PO Q12HR [facility] Last Admin: 03/10/17 09:47 Dose: Not Given Metoprolol Tartrate (Lopressor) 50 mg PO ONETIME ONE Stop: 03/11/17 09:27 Last Admin: 03/11/17 09:35 Dose: Not Given Miscellaneous Information (Remove Patch) 1 ea TRDERM Q72H [facility] Miscellaneous Information (Remove Patch) 1 ea TRDERM Q72H [facility] Miscellaneous Information (Remove Patch) 1 ea TRDERM NOW STA Stop: 03/11/17 19:54 Last Admin: 03/11/17 20:41 Dose: 1 ea Morphine Sulfate (Morphine) 2 mg IVPUSH ONETIME ONE Stop: 03/08/17 10:36 Last Admin: 03/08/17 10:40 Dose: 2 mg Morphine Sulfate (Morphine) 2 mg IVPUSH ONETIME ONE Stop: 03/08/17 16:49 Last Admin: 03/08/17 18:05 Dose: Not Given Phytonadione (Aquamephyton) 5 mg PO ONETIME ONE Stop: 03/12/17 19:59 Last Admin: 03/12/17 21:16 Dose: 5 mg Scopolamine (Scopolamine) 1 each TRDERM Q72H PRN PRN Reason: Nausea Vit A/Vit C/Vit E/Selen/Cu/Zn/Lutei (Icaps Mv) 2 tab PO BID [facility] Last Admin: 03/10/17 21:22 Dose: 1 tab - Problem List Review Problem List Initiated/Reviewed/Updated: Yes - My Orders Last 24 Hours: Active Orders 24 hr Category Date Time Status Patient Status [ADT] Routine ADT 03/12/17 19:49 Active Chest Tube Management [RC] Q4HR Care 03/12/17 19:13 Active Enema [RC] ASDIRECTED Care 03/12/17 09:02 Active Notify Provider Consults [RC] ASDIRECTED Care 03/12/17 09:42 Active Consult to Case Management [CONS] Routine Cons 03/12/17 20:01 Active Consult to Physician [CONS] Routine Cons 03/12/17 09:41 Active Consult to Autocad Operator [CONS] Routine Cons 03/12/17 20:01 Active Consult to Spiritual Care [CONS] Routine Cons 03/12/17 20:01 Active Clear Liquid Diet [DIET] Diet 03/12/17 Breakfast Active Soft Diet [DIET] Diet 03/13/17 Breakfast Ordered CXR [Chest 1V Frontal] [CR] Routine Exams 03/13/17 09:00 Ordered Chest [US] Routine Exams 03/12/17 17:35 Ordered BASIC METABOLIC PANEL,BMP [CHEM] AM Lab 03/13/17 05:11 Ordered CBC WITH AUTO DIFF [HEME] AM Lab 03/13/17 05:11 Ordered INR,PT,PROTHROMBIN TIME [COAG] Routine Lab 03/13/17 05:11 Ordered MAGNESIUM [CHEM] AM Lab 03/13/17 05:11 Ordered Acetaminophen/oxyCODONE [Percocet 325-5 MG] Med 03/13/17 06:45 Ordered 1 tab PO Q4H PRN Medication Orders Hydrocodone Bitart/Acetaminophen ([place] 325-5 Mg) 1 tab PO Q4H PRN PRN Reason: Pain Last Admin: 03/13/17 04:21 Dose: 1 tab Admin: 03/12/17 21:23 Dose: 1 tab Admin: 03/12/17 16:26 Dose: 1 tab Admin: 03/12/17 10:32 Dose: 1 tab Admin: 03/12/17 06:26 Dose: 1 tab Admin: 03/12/17 02:29 Dose: 1 tab Admin: 03/11/17 21:45 Dose: 1 tab Admin: 03/11/17 05:58 Dose: 1 tab Admin: 03/11/17 02:18 Dose: 1 tab Admin: 03/10/17 21:24 Dose: 1 tab Admin: 03/10/17 17:31 Dose: 1 tab Admin: 03/10/17 12:00 Dose: 1 tab Admin: 03/10/17 07:08 Dose: 1 tab Admin: 03/10/17 03:16 Dose: 1 tab Admin: 03/09/17 21:45 Dose: 1 tab Admin: 03/09/17 06:30 Dose: 1 tab Admin: 03/09/17 03:23 Dose: 1 tab Admin: 03/08/17 21:25 Dose: 1 tab Admin: 03/08/17 17:17 Dose: 1 tab Amitriptyline HCl (Elavil) 25 mg PO BEDTIME [facility] Last Admin: 03/12/17 21:15 Dose: 25 mg Admin: 03/11/17 20:30 Dose: 25 mg Admin: 03/10/17 21:23 Dose: 25 mg Admin: 03/09/17 21:47 Dose: 25 mg Admin: 03/08/17 21:25 Dose: 25 mg Clopidogrel Bisulfate (Plavix) 75 mg PO DAILY [facility] Last Admin: 03/12/17 09:11 Dose: 75 mg Admin: 03/11/17 08:25 Dose: 75 mg Admin: 03/10/17 09:09 Dose: 75 mg Admin: 03/09/17 09:44 Dose: 75 mg Docusate Sodium (Colace) 100 mg PO BID [facility] Last Admin: 03/12/17 21:16 Dose: 100 mg Admin: 03/12/17 09:11 Dose: 100 mg Admin: 03/11/17 20:30 Dose: 100 mg Admin: 03/11/17 08:25 Dose: 100 mg Admin: 03/10/17 21:22 Dose: 100 mg Admin: 03/10/17 09:09 Dose: 100 mg Admin: 03/09/17 21:47 Dose: 100 mg Hydromorphone HCl (Dilaudid) 0.5 mg IVPUSH Q4H PRN PRN Reason: Pain Last Admin: 03/13/17 05:50 Dose: 0.5 mg Admin: 03/13/17 01:48 Dose: 0.5 mg Admin: 03/12/17 21:48 Dose: 0.5 mg Admin: 03/12/17 17:35 Dose: 0.5 mg Levothyroxine Sodium (Synthroid) 88 mcg PO ACBREAKFAST [facility] Last Admin: 03/13/17 05:54 Dose: 88 mcg Admin: 03/12/17 06:26 Dose: 88 mcg Admin: 03/11/17 05:58 Dose: 88 mcg Admin: 03/10/17 06:19 Dose: 88 mcg Admin: 03/09/17 06:30 Dose: 88 mcg Magnesium Oxide (Magnesium Oxide) 400 mg PO BID [facility] Last Admin: 03/12/17 21:16 Dose: 400 mg Admin: 03/12/17 09:11 Dose: 400 mg Admin: 03/11/17 20:30 Dose: 400 mg Metoprolol Tartrate (Lopressor) 50 mg PO BID@1200,2100 [facility] Last Admin: 03/12/17 22:50 Dose: Admin: 03/12/17 13:10 Dose: 50 mg Admin: 03/11/17 20:30 Dose: 50 mg Admin: 03/11/17 12:17 Dose: Admin: 03/11/17 09:33 Dose: 50 mg Admin: 03/10/17 21:23 Dose: Admin: 03/10/17 12:25 Dose: Not Given Ondansetron HCl (Zofran) 4 mg IVPUSH Q8H PRN PRN Reason: Nausea/Vomiting Last Admin: 03/13/17 01:38 Dose: 4 mg Admin: 03/11/17 13:13 Dose: 4 mg Admin: 03/10/17 07:14 Dose: 4 mg Admin: 03/08/17 18:38 Dose: 4 mg Ptom: Ubidecarenone (100mg (Coenzyme-Q)) 1 each PO DAILY [facility] Last Admin: 03/12/17 09:17 Dose: Admin: 03/11/17 09:17 Dose: Admin: 03/10/17 14:47 Dose: 1 each Admin: 03/09/17 09:51 Dose: 1 each Polyethylene Glycol (Miralax) 17 gm PO BEDTIME PRN PRN Reason: Constipation Last Admin: 03/11/17 08:26 Dose: 17 gm Simvastatin (Zocor) 10 mg PO BEDTIME [facility] Last Admin: 03/12/17 21:16 Dose: 10 mg Admin: 03/11/17 20:30 Dose: 10 mg Admin: 03/10/17 21:23 Dose: 10 mg Admin: 03/09/17 21:48 Dose: 10 mg Sodium Chloride (Saline Flush) 10 ml FLUSH ONETIME PRN PRN Reason: IV FLUSH Last Admin: 03/09/17 10:03 Dose: 10 ml Admin: 03/08/17 11:23 Dose: 10 ml Admin: 03/08/17 10:59 Dose: 10 ml Vit A/Vit C/Vit E/Selen/Cu/Zn/Lutei (Icaps Mv) 1 tab PO BID [facility] Last Admin: 03/12/17 21:16 Dose: 1 tab Admin: 03/12/17 09:11 Dose: 1 tab Admin: 03/11/17 20:30 Dose: 1 tab Admin: 03/11/17 08:25 Dose: 1 tab Warfarin Sodium (Coumadin) 7.5 mg PO MoWeFr@1800 [facility] Last Admin: 03/09/17 17:37 Dose: 7.5 mg Warfarin Sodium (Coumadin) 5 mg PO SuTuThSa@1800 [facility] Last Admin: 03/11/17 17:00 Dose: 5 mg Admin: 03/10/17 17:32 Dose: 5 mg Admin: 03/08/17 18:39 Dose: 5 mg - Plan Plan (Free Text/Narrative):: chest tube is working no futher blood from the tube clear fluid out about 300 cc no air leak hb 10 compalintof pain vicodin not working plan start oxydoone
[2017-03-13] MEDS: Multivitamins with Minerals/Folic Acid/Lutein/Zeaxanth Tab PO SCH ×2 (09:25→20:00)
[2017-03-13] MEDS: Acetaminophen/oxyCODONE 325-5 MG Tab PO PRN ×3 (09:25→20:01)
[2017-03-13] MEDS: UBIDECARENONE 100 MG PO SCH (09:26)
[2017-03-13] MEDS: Magnesium Oxide 400 MG Tab PO SCH ×2 (09:26→20:00)
[2017-03-13] MEDS: Clopidogrel 75 MG Tab PO SCH (09:26)
[2017-03-13] MEDS: Docusate Sodium 100 MG Cap PO SCH ×2 (09:26→20:01)
--- NOTE | 2017-03-13 09:42 | CR ---
Chest: Portable view of the chest was obtained. Comparison: Prior chest x-ray of 03/12/17. Left basilar chest tube is seen. Minimal apical pneumothorax is seen which has improved from prior study. Mild atelectasis within the right lung base is seen. Mild increased density within the left mid to lower lung is seen most likely due to additional atelectasis. Sternotomy is noted. Surgical clips within the upper right abdomen are seen. Bony structures are grossly intact. Impression: 1. Left basilar chest tube. Minimal apical pneumothorax is seen improved from prior exam. 2. Areas of atelectasis as noted above. Diagnostic code #3
--- NOTE | 2017-03-13 10:17 | OR ---
DATE OF OPERATION: 03/12/2017 SURGEON: Kayode Goss MD PREOPERATIVE DIAGNOSIS: Left hemothorax. POSTOPERATIVE DIAGNOSIS: Left hemothorax. OPERATION PERFORMED: Placement of 40-[place] chest tube done under local anesthetic 1% Xylocaine. DESCRIPTION OF PROCEDURE: The patient seen at the bedside and ultrasound was done showing the ideal place to put the tube. The patient's left lateral chest wall and anterior axillary line was prepped with Betadine, draped off in a sterile fashion with the patient's shoulder abducted. Skin was anesthetized with 1% Xylocaine. Incision was made and carried down to the rib. Additional anesthetic was instilled over the rib in the anterior space of the intercostal space over the top of the rib. This area was entered and a 40-[place] chest tube advanced and a large of amount of bloody fluid was obtained. It was then sutured to the skin with 0 silk suture. Sterile dressing was placed using Xeroform gauze and Vaseline gauze. This was connected to a Hemovac and all connections were taped. The patient tolerated the procedure and a chest x-ray was obtained. ANESTHESIA: ESTIMATED BLOOD LOSS: MMODAL /[id number]
[2017-03-13] MEDS ORDERED: Metoprolol Tartrate 5 MG/5 ML SDV ONE (11:15)
[2017-03-13] MEDS ORDERED: Diltiazem 125 MG in Sodium Chloride 0.9% 100 ML IV SCH (11:15)
[2017-03-13] MEDS ORDERED: Metoprolol Tartrate 5 MG/5 ML SDV IVPUSH STA (11:20)
[2017-03-13] MEDS: Metoprolol Tartrate 25 MG Tab PO SCH ×3 (11:29→20:01)
[2017-03-13] MEDS ORDERED: Lidocaine 5% 700 MG Patch TOP SCH (15:30)
[2017-03-13] MEDS ORDERED: Sodium Chloride 0.9% 250 ML IV ONE (17:35)
[2017-03-13] MEDS ORDERED: Metoprolol Tartrate 5 MG/5 ML SDV IVPUSH PRN (17:42)
[2017-03-13] MEDS: Sodium Chloride 0.9% 1,000 ML IV SCH ×2 (18:10→23:19)
[2017-03-13] MEDS ORDERED: Esmolol/Normal Saline 2.5 GM/250 ML BAG IV SCH (18:30)
[2017-03-13] MEDS: Amitriptyline 25 MG Tab PO SCH (20:00)
[2017-03-13] MEDS: Simvastatin 10 MG Tab PO SCH (20:00)
[2017-03-13] MEDS ORDERED: LORazepam 0.5 MG Tab PO PRN (20:47)
[2017-03-13] MEDS ORDERED: Digoxin 500 MCG/2 ML Amp IVPUSH ONE (21:47)
--- NOTE | 2017-03-13 22:03 | PCM.DCSUM1 ---
Discharge Summary - Hospital Course HPI Initial Comments: 81 year old female s/p fall, hitting furniture with her back and left side. She felt dizzy after taking a hand full of her cardiac medication on an empty stomach. She has had a radiographic study that documents multiple left sided rib fractures. She is on coumadin as well as plavix for coronary stents. The patient stated that her metoprolol had been recently increased. She has had no N/V, SOB, CP, orthopnea, PND, syncopal/presyncopal episodes. The patient will be admitted to obs with telemetry. - Discharge Data Discharge Date: 03/13/17 (Admit Date: 03/09/17) Discharge Disposition: DC/Tfer to Acute Hospital 02 Condition: Fair - Discharge Diagnosis/Problem(s) (1) Multiple fractures of ribs, left side, initial encounter for closed fracture SNOMED Code(s): 51043606 ICD Code: S22.42XA - MULTIPLE FRACTURES OF RIBS, LEFT SIDE, INIT FOR CLOS FX Status: Acute Priority: High Current Visit: Yes (2) Atrial fibrillation with RVR SNOMED Code(s): 542343123506531 ICD Code: I48.91 - UNSPECIFIED ATRIAL FIBRILLATION Status: Acute Priority : High Current Visit: Yes (3) Chest pain SNOMED Code(s): 39578733 ICD Code: R07.9 - CHEST PAIN, UNSPECIFIED Status: Acute Priority: High Current Visit: Yes Qualifiers: Chest pain type: unspecified Qualified Code(s): R07.9 - Chest pain, unspecified (4) Hypertension SNOMED Code(s): 68912250 ICD Code: I10 - ESSENTIAL (PRIMARY) HYPERTENSION Status: Chronic Priority : Medium Current Visit: No Qualifiers: Hypertension type: essential hypertension Qualified Code(s): I10 - Essential (primary) hypertension (5) Hyperkalemia SNOMED Code(s): 24935930 ICD Code: E87.5 - HYPERKALEMIA Status: Acute Priority: Medium Current Visit: Yes (6) Hemothorax on left SNOMED Code(s): 59628780 ICD Code: J94.2 - HEMOTHORAX Status: Acute Priority: High Current Visit : Yes - Patient Summary/Data Operative Procedure(s) Performed: place chest tube 40F - approximately 1000mL bloody output Consults: Consultations 03/12/17 09:41 Consult to Physician [CONS] Routine 03/12/17 20:01 Consult to Case Management [CONS] Routine Consult to [employer] [CONS] Routine Consult to Spiritual Care [CONS] Routine 03/13/17 09:33 Consult to Occupational Therapy [OT Evaluation and Treatment] [CONS] Routine Consult to Physical Therapy [PT Evaluation and Treatment] [CONS] Routine Hospital Course: Patient was initially doing quiet well after admission. She was upgraded to full inpatient status. Over the past weekend she began to complain of increasing chest pain and abdominal pain. Therapy noticed that she needed increased assistance and was having a difficult day. Troponin and EKG were negative. Abdominal x-ray did show a suspected illius and general surgery was consulted. Lipase was slightly elevated. Diet was changed to clear liquids. ( This was advanced to soft diet later in stay.) CXR showed a newly developed left sided pleural effusion. CT was obtained and did show a probable hemothorax. INR was noted to be 1.98. Vitamin K 5mg was given. General surgery ( Dr. Goss) was again consulted. He contacted Dr. Hendrickson in [place] who reported that they were without beds and suggested Dr. Goss place a chest tube and monitor. Chest tube was placed utilizing a 40f and secured. During insertion approximately 1L of bloody fluid was drained from her chest. 500ml was noted in the tube shortly after. Placement was confirmed on CXR and did show a 30% pneumothorax. (This improved over her stay with us.) She was also upgraded to ICU status. She later converted into atrial fib with RVR. Cardazem drip was started with minimal effect. She was switched to esmolol with very minimal noticable effect as well. She does have a hx/o A-fib and per her reports she was discussing an appointment at [place] with her PCP for ablation. Her BP remained in the upper 90's systolic. She has frequently reported severe pain. Multiple pain medications were given including percocet, norco, dilaudid and also ativan for anxiety. She has a lidocaine patch in place. A fentanyl patch was attempted earlier in her stay, however this resulted in hypotension and was discontinued. We have had difficulty obtaining pain control and difficulty getting her A-fib to respond. Dr. Goss contacted Dr. Ramiro Lopez at [facility] in [place] and he agrees to the transfer. The patient is to come through the ED. Ambulance is contacted and transfer is arranged. She will be transfered with a cardazem drip and NS. She was given a saline bolus and digoxin prior to transport. Esmolol was stopped. Her warfran has been held since the hemothorax was noted. She is still on her home dosage of plavix. - Patient Instructions Diet: Heart Healthy Diet Driving: Do Not Drive - Discharge Plan Home Medications: Home Meds Alpha Lipoic Acid [Alpha-Lipoic Acid] 200 mg PO DAILY 08/10/14 [History] Amitriptyline [Elavil] 25 mg PO BEDTIME 08/10/14 [History] Cinnamon Bark [Cinnamon] 500 mg PO DAILY 08/10/14 [History] Fish Oil/Boyce-3 Fatty Acids [Fish Oil] 1,200 mg PO DAILY 08/10/14 [History] Metoprolol Succinate [Toprol XL] 100 mg PO DAILY 08/10/14 [History] Ubidecarenone [Co Q-10] 100 mg PO DAILY 08/10/14 [History] Clopidogrel [Plavix] 75 mg PO DAILY 02/26/17 [History] Levothyroxine [Synthroid] 88 mcg PO DAILY 02/26/17 [History] Magnesium 250 mg PO DAILY 02/26/17 [History] Multivit-Min/FA/Lycopene/Lut [Centrum Silver Tablet] 1 tab PO DAILY 02/26/17 [ History] [email or web address] 1 tab PO DAILY 02/26/17 [History] Vit A/Vit C/Vit E/Zinc/Copper [Icaps Areds Formula] 1 tab PO BID 02/26/17 [ History] Warfarin [Coumadin] 5 mg PO SUTUTHSA 02/26/17 [History] Warfarin [Coumadin] 7.5 mg PO MOWEFR 02/26/17 [History] atorvaSTATin [Lipitor] 10 mg PO DAILY 02/26/17 [History] Forms: ED Department Discharge Referrals: Benoit Long MD [Primary Care Provider] - - Discharge Summary/Plan Comment DC Time >30 min.: Yes (40 minutes ) - General Info Date of Service: 03/13/17 Admission Dx/Problem (Free Text: Multiple rib fractures Subjective Update: In to see [facility]. She is very uncomfortable and reports severe pain. She states "I am dying." Both myself and Dr. Josue assure her she is doing as good as to be expected. She had chest pain last night that radiated into her shoulder. Troponin and 12-lead EKG were ordered and both were negative. She has been utilizing IS/Acapella. She did convert to A-fib with RVR today. BP has been slightly low and Hgb has been trending downward. Both her and her as multiple questions and both myself and Dr. Josue attempt to explain to them her progress thus far, prognosis, and plan of care. Ultimately Dr. Goss is contacted and arranges transfer to [place]. Functional Status: Reports: Tolerating Diet, Ambulating, Urinating. Denies: Pain Controlled - Review of Systems General: Reports: Weakness, Fatigue, Malaise. Denies: Fever, Night Sweats HEENT: Denies: Ear Pain, Eye Pain, Glasses, Headaches, Sore Throat Pulmonary: Reports: Shortness of Breath, Pleuritic Chest Pain. Denies: Cough, Sputum Cardiovascular: Reports: Chest Pain, Palpitations, Dyspnea on Exertion, Edema Gastrointestinal: Denies: Abdominal Pain, Constipation, Diarrhea, Nausea, Vomiting Genitourinary: Reports: No Symptoms. Denies: Dysuria, Frequency, Burning, Pain , Urgency Musculoskeletal: Reports: Shoulder Pain (left ), Back Pain, Other (Chest pain) Skin: Reports: No Symptoms Neurological: Reports: Weakness Psychiatric: Reports: Anxiety - Patient Data Vitals - Most Recent: Last Vital Signs Temp 98.2 F 03/13/17 21:00 Pulse 127 H 03/13/17 21:00 Resp 15 03/13/17 21:00 BP 94/59 L 03/13/17 21:00 Pulse Ox 97 03/13/17 21:00 Weight - Most Recent: 194 lb I&O - Last 24 hours: Intake & Output 03/13/17 03/13/17 03/13/17 06:59 14:59 22:59 Intake Total 582 100 280 Output Total 700 950 600 Balance -118 -850 -320 Lab Results - Last 24 hrs: Laboratory Results - last 24 hr 03/13/17 03/13/17 03/13/17 Range/Units 01:05 05:46 05:46 WBC 15.65 H (3.98-10.04) K/mm3 RBC 3.20 L (3.98-5.22) M/mm3 Hgb 10.0 L (11.2-15.7) gm/L Hct 30.1 L (34.1-44.9) % MCV 94.1 (79.4-94.8) fl MCH 31.3 (25.6-32.2) pg MCHC 33.2 (32.2-35.5) g/dl RDW Std Deviation 45.5 (36.4-46.3) fL Plt Count 266 (182-369) K/mm3 MPV 9.5 (9.4-12.3) fl Neut % (Auto) 71.0 (34.0-71.1) % Lymph % (Auto) 13.8 L (19.3-51.7) % Gray % (Auto) 14.4 H (4.7-12.5) % Eos % (Auto) 0.3 L (0.7-5.8) Baso % (Auto) 0.1 (0.1-1.2) % Neut # (Auto) 11.11 H (1.56-6.13) K/mm3 Lymph # (Auto) 2.16 (1.18-3.74) K/mm3 Gray # (Auto) 2.26 H (0.24-0.36) K/mm3 Eos # (Auto) 0.04 (0.04-0.36) K/mm3 Baso # (Auto) 0.02 (0.01-0.08) K/mm3 Manual Slide Review Abnormal smear PT (8.0-13.0) SECONDS INR Sodium 137 (136-145) mEq/L Potassium 4.5 (3.5-5.1) mEq/L Chloride 101 (98-107) mEq/L Carbon Dioxide 28 (21-32) mEq/L Anion Gap 12.5 (5-15) BUN 31 H (7-18) mg/dL Creatinine 1.1 H (0.55-1.02) mg/dL Est Cr Clr Drug Dosing 36.91 mL/min Estimated GFR (MDRD) 48 (>60) mL/min BUN/Creatinine Ratio 28.2 H (14-18) Glucose 114 (83-115) mg/dL Calcium 8.4 L (8.5-10.1) mg/dL Magnesium 2.2 (1.8-2.4) mg/dl Troponin I 0.053 (0.00-0.056) ng/mL 03/13/17 03/13/17 03/13/17 Range/Units 05:46 12:37 15:55 WBC 14.38 H (3.98-10.04) K/mm3 RBC 3.16 L (3.98-5.22) M/mm3 Hgb 10.8 L 9.9 L (11.2-15.7) gm/L Hct 29.9 L (34.1-44.9) % MCV 94.6 (79.4-94.8) fl MCH 31.3 (25.6-32.2) pg MCHC 33.1 (32.2-35.5) g/dl RDW Std Deviation 45.4 (36.4-46.3) fL Plt Count 302 (182-369) K/mm3 MPV 9.2 L (9.4-12.3) fl Neut % (Auto) 67.0 (34.0-71.1) % Lymph % (Auto) 16.5 L (19.3-51.7) % Gray % (Auto) 14.7 H (4.7-12.5) % Eos % (Auto) 1.0 (0.7-5.8) Baso % (Auto) 0.2 (0.1-1.2) % Neut # (Auto) 9.64 H (1.56-6.13) K/mm3 Lymph # (Auto) 2.37 (1.18-3.74) K/mm3 Gray # (Auto) 2.11 H (0.24-0.36) K/mm3 Eos # (Auto) 0.15 (0.04-0.36) K/mm3 Baso # (Auto) 0.03 (0.01-0.08) K/mm3 Manual Slide Review Abnormal smear PT 16.1 H (8.0-13.0) SECONDS INR 1.44 Sodium (136-145) mEq/L Potassium (3.5-5.1) mEq/L Chloride (98-107) mEq/L Carbon Dioxide (21-32) mEq/L Anion Gap (5-15) BUN (7-18) mg/dL Creatinine (0.55-1.02) mg/dL Est Cr Clr Drug Dosing mL/min Estimated GFR (MDRD) (>60) mL/min BUN/Creatinine Ratio (14-18) Glucose (83-115) mg/dL Calcium (8.5-10.1) mg/dL Magnesium (1.8-2.4) mg/dl Troponin I (0.00-0.056) ng/mL Med Orders - Current: Current Medications Hydrocodone Bitart/Acetaminophen (Delta 325-5 Mg) 1 tab PO Q4H PRN PRN Reason: Pain Last Admin: 03/13/17 04:21 Dose: 1 tab Amitriptyline HCl (Elavil) 25 mg PO BEDTIME JOHNNY Last Admin: 03/13/17 20:00 Dose: 25 mg Clopidogrel Bisulfate (Plavix) 75 mg PO DAILY JOHNNY Last Admin: 03/13/17 09:26 Dose: 75 mg Docusate Sodium (Colace) 100 mg PO BID JOHNNY Last Admin: 03/13/17 20:01 Dose: 100 mg Hydromorphone HCl (Dilaudid) 0.5 mg IVPUSH Q4H PRN PRN Reason: Pain Last Admin: 03/13/17 10:27 Dose: 0.5 mg Diltiazem HCl 125 mg/ Sodium (Chloride) 125 mls @ 5 mls/hr IV TITRATE JOHNNY; 5 MG /HR PRN Reason: Protocol Last Titration: 03/13/17 18:23 Dose: 0 mg/hr, 0 mls/hr Sodium Chloride (Normal Saline) 1,000 mls @ 100 mls/hr IV ASDIRECTED JOHNNY Last Admin: 03/13/17 18:10 Dose: 100 mls/hr Esmolol HCl (Brevibloc In Ns Premix) 2.5 gm in 250 mls @ 13.2 mls/hr IV TITRATE JOHNNY; 25 MCG/KG/MIN PRN Reason: Protocol Last Titration: 03/13/17 20:54 Dose: 100 mcg/kg/min, 52.798 mls/hr Levothyroxine Sodium (Synthroid) 88 mcg PO ACBREAKFAST JOHNNY Last Admin: 03/13/17 05:54 Dose: 88 mcg Lidocaine (Lidoderm 5%) 700 mg TOP DAILY JOHNNY Last Admin: 03/13/17 15:47 Dose: 700 mg Lorazepam (Ativan) 0.5 mg PO Q4H PRN PRN Reason: Anxiety Last Admin: 03/13/17 20:58 Dose: 0.5 mg Magnesium Oxide (Magnesium Oxide) 400 mg PO BID [facility] Last Admin: 03/13/17 20:00 Dose: 400 mg Metoprolol Tartrate (Lopressor) 50 mg PO BID@1200,2100 [facility] Last Admin: 03/13/17 20:01 Dose: 50 mg Metoprolol Tartrate (Lopressor) 5 mg IVPUSH Q4H PRN PRN Reason: Tachycardia Last Admin: 03/13/17 17:50 Dose: 5 mg Miscellaneous Information (Remove Patch) 1 ea TRDERM BEDTIME [facility] Ondansetron HCl (Zofran) 4 mg IVPUSH Q8H PRN PRN Reason: Nausea/Vomiting Last Admin: 03/13/17 01:38 Dose: 4 mg Oxycodone/Acetaminophen (Percocet 325-5 Mg) 1 tab PO Q4H PRN PRN Reason: Pain Last Admin: 03/13/17 20:01 Dose: 1 tab Ptom: Ubidecarenone (100mg (Coenzyme-Q)) 1 each PO DAILY [facility] Last Admin: 03/13/17 09:26 Dose: Not Given Polyethylene Glycol (Miralax) 17 gm PO BEDTIME PRN PRN Reason: Constipation Last Admin: 03/11/17 08:26 Dose: 17 gm Simvastatin (Zocor) 10 mg PO BEDTIME [facility] Last Admin: 03/13/17 20:00 Dose: 10 mg Sodium Chloride (Saline Flush) 10 ml FLUSH ONETIME PRN PRN Reason: IV FLUSH Last Admin: 03/09/17 10:03 Dose: 10 ml Vit A/Vit C/Vit E/Selen/Cu/Zn/Lutei (Icaps Mv) 1 tab PO BID [facility] Last Admin: 03/13/17 20:00 Dose: 1 tab Warfarin Sodium (Coumadin) 7.5 mg PO MoWeFr@1800 [facility] Last Admin: 03/09/17 17:37 Dose: 7.5 mg Warfarin Sodium (Coumadin) 5 mg PO SuTuThSa@1800 [facility] Last Admin: 03/11/17 17:00 Dose: 5 mg Discontinued Medications Hydrocodone Bitart/Acetaminophen (Delta 325-5 Mg) 1 tab PO ONETIME ONE Stop: 03/12/17 23:59 Last Admin: 03/13/17 00:07 Dose: 1 tab Bisacodyl (Dulcolax) 10 mg RECTAL ONETIME ONE Stop: 03/11/17 21:33 Last Admin: 03/12/17 00:27 Dose: Not Given Bisacodyl (Dulcolax) 10 mg RECTAL ONETIME ONE Stop: 03/11/17 21:53 Last Admin: 03/11/17 22:03 Dose: 10 mg Digoxin (Lanoxin) 0.25 mcg IVPUSH ONETIME ONE Stop: 03/13/17 21:48 Enoxaparin Sodium (Lovenox) 40 mg SUBCUT DAILY [facility] Last Admin: 03/09/17 10:01 Dose: Not Given Fentanyl (Duragesic) 12 mcg TRDERM Q72H [facility] Last Admin: 03/08/17 18:47 Dose: 12 mcg Fentanyl (Duragesic) 12 mcg TRDERM Q72H [facility] Last Admin: 03/11/17 11:50 Dose: 12 mcg Hydromorphone HCl (Dilaudid) 1 mg IVPUSH ONETIME ONE Stop: 03/08/17 11:07 Last Admin: 03/08/17 11:10 Dose: 1 mg Hydromorphone HCl (Dilaudid) Confirm Administered Dose 1 mg .ROUTE .STK-MED ONE Stop: 03/08/17 11:13 Last Admin: 03/08/17 11:16 Dose: Not Given Hydromorphone HCl (Dilaudid) 1 mg IVPUSH Q6H PRN PRN Reason: Pain (severe 7-10) Last Admin: 03/08/17 18:19 Dose: 1 mg Hydromorphone HCl (Dilaudid) 1 mg IVPUSH Q2H PRN PRN Reason: Pain Last Admin: 03/11/17 07:54 Dose: 1 mg Sodium Chloride (Normal Saline) 500 mls @ 250 mls/hr IV .BOLUS ONE Stop: 03/08/17 12:35 Last Admin: 03/08/17 10:42 Dose: 250 mls/hr Sodium Chloride (Normal Saline) Confirm Administered Dose 1,000 mls @ as directed .ROUTE .STK-MED ONE Stop: 03/08/17 10:45 Last Admin: 03/08/17 10:43 Dose: Not Given Lactated Ringer's (Ringers, Lactated) 1,000 mls @ 75 mls/hr IV ASDIRECTED [facility] Stop: 03/09/17 06:00 Last Admin: 03/08/17 20:00 Dose: 75 mls/hr Sodium Chloride (Normal Saline) 250 mls @ 250 mls/hr IV .BOLUS ONE Stop: 03/11/17 20:49 Last Admin: 03/11/17 20:06 Dose: Not Given Sodium Chloride (Normal Saline) 500 mls @ 500 mls/hr IV .BOLUS ONE Stop: 03/11/17 20:49 Last Admin: 03/11/17 20:10 Dose: Not Given Sodium Chloride (Normal Saline) 250 mls @ 250 mls/hr IV .BOLUS ONE Stop: 03/11/17 20:56 Last Admin: 03/11/17 20:28 Dose: 250 mls/hr Lactated Ringer's (Ringers, Lactated) 1,000 mls @ 100 mls/hr IV ASDIRECTED [facility] Stop: 03/12/17 22:00 Last Admin: 03/12/17 16:27 Dose: 100 mls/hr Sodium Chloride (Normal Saline) 250 mls @ 999 mls/hr IV .BOLUS ONE Stop: 03/13/17 17:50 Last Admin: 03/13/17 17:50 Dose: 999 mls/hr Iopamidol (Isovue-300 (61%)) 100 ml IVPUSH ONETIME ONE Stop: 03/08/17 10:44 Last Admin: 03/08/17 11:23 Dose: 100 ml Ketorolac Tromethamine (Toradol) 15 mg IVPUSH Q8H [facility] Stop: 03/10/17 10:01 Last Admin: 03/10/17 10:17 Dose: 15 mg Ketorolac Tromethamine (Toradol) 30 mg IVPUSH ONETIME ONE Stop: 03/11/17 11:22 Last Admin: 03/11/17 11:49 Dose: 30 mg Ketorolac Tromethamine (Toradol) 15 mg IVPUSH Q6H [facility] Stop: 03/12/17 11:31 Ketorolac Tromethamine (Toradol) 15 mg IVPUSH Q6H JOHNNY Stop: 03/12/17 09:31 Last Admin: 03/12/17 09:11 Dose: 15 mg Magnesium Oxide (Magnesium Oxide) 400 mg PO DAILY [facility] Last Admin: 03/11/17 08:25 Dose: 400 mg Methylprednisolone Sodium Succinate (Solu-Medrol) 125 mg IVPUSH ONETIME ONE Stop: 03/11/17 19:53 Last Admin: 03/11/17 20:28 Dose: 125 mg Metoprolol Succinate (Toprol Xl) 100 mg PO DAILY [facility] Last Admin: 03/09/17 09:49 Dose: 100 mg Metoprolol Tartrate (Lopressor) 50 mg PO Q12HR [facility] Last Admin: 03/10/17 09:47 Dose: Not Given Metoprolol Tartrate (Lopressor) 50 mg PO ONETIME ONE Stop: 03/11/17 09:27 Last Admin: 03/11/17 09:35 Dose: Not Given Metoprolol Tartrate (Lopressor) Confirm Administered Dose 5 mg .ROUTE .STK-MED ONE Stop: 03/13/17 11:16 Last Admin: 03/13/17 11:27 Dose: Not Given Metoprolol Tartrate (Lopressor) 5 mg IVPUSH ONETIME STA Stop: 03/13/17 11:21 Last Admin: 03/13/17 11:36 Dose: 5 mg Miscellaneous Information (Remove Patch) 1 ea TRDERM Q72H [facility] Miscellaneous Information (Remove Patch) 1 ea TRDERM Q72H [facility] Miscellaneous Information (Remove Patch) 1 ea TRDERM NOW STA Stop: 03/11/17 19:54 Last Admin: 03/11/17 20:41 Dose: 1 ea Morphine Sulfate (Morphine) 2 mg IVPUSH ONETIME ONE Stop: 03/08/17 10:36 Last Admin: 03/08/17 10:40 Dose: 2 mg Morphine Sulfate (Morphine) 2 mg IVPUSH ONETIME ONE Stop: 03/08/17 16:49 Last Admin: 03/08/17 18:05 Dose: Not Given Phytonadione (Aquamephyton) 5 mg PO ONETIME ONE Stop: 03/12/17 19:59 Last Admin: 03/12/17 21:16 Dose: 5 mg Scopolamine (Scopolamine) 1 each TRDERM Q72H PRN PRN Reason: Nausea Vit A/Vit C/Vit E/Selen/Cu/Zn/Lutei (Icaps Mv) 2 tab PO BID [facility] Last Admin: 03/10/17 21:22 Dose: 1 tab - Exam Quality Assessment: Reports: Supplemental Oxygen, DVT Prophylaxis General: Reports: Alert, Oriented, Cooperative, Moderate Distress HEENT: Reports: Pupils Equal, Pupils Reactive, EOMI, Mucous Membr. Moist/[place] Neck: Reports: Supple, Trachea Midline, No JVD, No Thyromegaly Lungs: Reports: Decreased Breath Sounds (especially left sided - patient unable to take a deep breath due to pain ), Wheezing (right base ) GI/Abdominal Exam: Normal Bowel Sounds, Soft, Non-Tender, No Organomegaly, No Distention, No Abnormal Bruit, No Mass, Pelvis Stable (Female) Exam: Deferred Rectal (Female) Exam: Deferred Back Exam: Reports: Decreased Range of Motion (due to pain), Other (large bruise on left side ) Extremities: Normal Inspection, Normal Range of Motion, Non-Tender, Normal Capillary Refill, Pedal Edema (1-2+) Skin: Reports: Warm, Dry, Intact Wound/Incisions: Reports: Other (Ches tube secured in place on left side. Some bloody drainage noted in tube along with clots.) Neurological: Reports: No New Focal Deficit Psy/Mental Status: Reports: Alert, Anxious, Agitated *Q Meaningful Use (DIS) - VTE *Q VTE Criteria *Q: - Stroke *Q Stroke Criteria *Q: - AMI *Q AMI Criteria *Q:
[2017-03-13 22:51] VITALS: BP 88/59
--- NOTE | 2017-03-14 01:41 | PCM.SN ---
- Free Text/Narrative Note: Patient and were nothing but difficult customers to please. I inferred during my initial contact with them that they were very important members of the community. questioned everything and yet they were never told by previous providers about his 's pneumothorax from chest tube placement. I did my best to explain to both of them about her clinical progress and what to expect from here on but both were very dissatisfied and dismissive. However I did put her on cardizem drip initially to address her fast heart rate but with increasing frequency of her dilaudid, her blood pressures slowly dropped significantly. From there, I decided to switch her to esmolol drip for better HR control but her pain remained poorly controlled and proceeded to ask for more pain medications. We called Dr. Goss to do something about it but only offered ativan to calm her down. I explained further to them that we needed to be careful with narcotics due to her hypotension but they demanded for a bulb packer or another doctor. They also demanded that her PCP be called and informed about her situation. I did try to reach her PCP (Dr. Long) but without any success. Throughout my encounter with them I was respectful, polite, and kind to both of them. However I received nothing in return but disrespect towards me and with condescending attitude requested multiple times that they be shipped out to [place], [place] for upper level of care. I did talk to Dr. Goss and planned for transfer. Patient was then referred for lateral transfer to [facility] with arrangement made by Dr. Goss. We had difficulty sending her out initially but with patience, she was successfully shipped out to [facility] ED under the services of Dr. Lopez. Of note, we tried fixed and chopper to send her out of here but due to inclement weather, neither was able to provide services. We also asked for their input but could not offer anything. No personal area relief pilot or private plane available for faster transportation. Therefore she was sent via ground. The and patient were very much aware about her clinical and hemodynamic instability at the time of transfer but still proceeded with the plan to go to [place] as requested.
--- NOTE | 2017-03-14 07:46 | CR ---
Chest: Portable view of the chest was obtained. Comparison: Prior chest x-ray performed earlier on the same day (7:25 AM). Left basilar chest tube again noted. Minimal apical pneumothorax remains. Central lung markings are increased. Mild basilar atelectasis remains on both sides. Sternotomy wires and calcified breast prosthesis are noted. Rib fractures are again noted. Impression: 1. Left basilar chest tube with minimal apical pneumothorax remaining. 2. Other findings within the chest are also stable. Diagnostic code #3 Agree with preliminary report issued by [facility] ([facility] preliminary report dictated on 03/13/17, 11:55 PM Central Time)
[2017-03-14] MEDS ORDERED: Remove Patch*FENTANYL TRDERM SCH (11:30)
== END 2017-03-13 23:50 | DRG 183 ==
LOC: JD.ED 09:31 → UNDOADMOB 14:18 → JD.MS 14:18 → OBSVTOIN 03-09 12:10 → JD.MS 03-09 16:10 → JD.ICU 03-12 19:49 → JD.MS 03-13 16:38 → JD.ICU 03-13 16:41
PROVIDERS: ADMIT Internal Medicine Cardiovascular Disease; ATTEND Internal Medicine Cardiovascular Disease
PROC: 0W9B30Z Drainage of Left Pleural Cavity with Drainage Device, Percutaneous Approach (ICD-10-PCS; principal; 2017-03-12)
DX: S22.42XA Multiple fractures of ribs, left side, initial encounter for closed fracture (principal); S27.2XXA Traumatic hemopneumothorax, initial encounter; W17.89XA Other fall from one level to another, initial encounter; G89.11 Acute pain due to trauma; M54.9 Dorsalgia, unspecified; I48.91 Unspecified atrial fibrillation; W18.39XA Other fall on same level, initial encounter; Z79.01 Long term (current) use of anticoagulants; I10 Essential (primary) hypertension; I95.9 Hypotension, unspecified; Z79.02 Long term (current) use of antithrombotics/antiplatelets; Z95.5 Presence of coronary angioplasty implant and graft; Z88.6 Allergy status to analgesic agent; Z88.2 Allergy status to sulfonamides; Z87.891 Personal history of nicotine dependence; Z88.5 Allergy status to narcotic agent; Z79.899 Other long term (current) drug therapy; R32 Unspecified urinary incontinence; M19.90 Unspecified osteoarthritis, unspecified site; M79.7 Fibromyalgia; R53.1 Weakness; I25.2 Old myocardial infarction; I25.10 Atherosclerotic heart disease of native coronary artery without angina pectoris; I71.4 Abdominal aortic aneurysm, without rupture; H35.30 Unspecified macular degeneration; E87.5 Hyperkalemia; F41.9 Anxiety disorder, unspecified; E03.9 Hypothyroidism, unspecified; Z90.49 Acquired absence of other specified parts of digestive tract; Z90.710 Acquired absence of both cervix and uterus; R07.81 Pleurodynia; R10.9 Unspecified abdominal pain; I44.0 Atrioventricular block, first degree; R79.1 Abnormal coagulation profile
CPT/HCPCS: 36415; 71045; 71260; 74177; 80053; 81001; 82248; 84484; 85025; 85610; 85730; 94667; 96361 ×2; 96374; 96375 ×3; 96376; 97166; 97530 ×2; 99285; A9270 ×12; G0378 ×2; J1170 ×2; J1885 ×3; J2270; J2405; J7040; J7050 ×3; J7120; Q9967; 32551; 71046; 71046-26; 71250; 71250-26; 74019; 74019-26; 76942; 80048; 82247; 82553; 83690; 83735; 85014; 85018; 86850; 86900; 86901; 93005; 93010; 94760; 94762; 97116-GP; 97161-GP; 97162-GP; C1729; J1160; J2930; J3430; J3490; J7030

== ENCOUNTER 2017-04-10 10:10 | Emergency (ER) | payer MEDICARE, BC ==
[2017-04-10] MEDS ORDERED: Sodium Chloride 0.9% 10 ML Syringe FLUSH PRN (10:34)
[2017-04-10 10:42] VITALS: BP 83/69
[2017-04-10] MEDS ORDERED: Sodium Chloride 0.9% 1,000 ML IV SCH (10:45)
--- NOTE | 2017-04-10 10:55 | EDM.PDOC ---
ED HPI GENERAL MEDICAL PROBLEM - General Chief Complaint: General Stated Complaint: TOOK HUSBANDS BLOOD PRESSURE MEDS BY MISTAKE Time Seen by Provider: 04/10/17 10:25 Source of Information: Reports: Patient, Family, Provider History Limitations: Reports: No Limitations - History of Present Illness INITIAL COMMENTS - FREE TEXT/NARRATIVE: The patient presents because she is lightheaded and she has low blood pressure. This morning she accidentally took her husbands medications. Her puts them in a cup and has them out for both of them but this morning she sat in the wrong place and took her husbands. She got lightheaded after that and she went to [facility] and they checked her blood pressure and it was in the 80s. They sent her here for further evaluation. She was recently admitted to the hospital and eventually sent to [place] because of 5 rib fractures on the left chest. She needed a chest tube. She still has some pain on that left side with deep breathing and movement. She denies fever, chills, cough, shortness of breath, abdominal pain, nausea or vomiting. Her 's medications include doxazosin 4mg, spironolactone 25mg, dutasteride 0.5mg, lisinopril 5mg, metoprolol 25mg, and simvastatin 20mg. Onset: Gradual Duration: Hour(s): Severity: Moderate Improves with: Reports: Immobilization Worsens with: Reports: Movement Associated Symptoms: Reports: Chest Pain (Left side from prior rib fractures and chest tube). Denies: Cough, Fever/Chills, Headaches, Nausea/Vomiting, Shortness of Breath - Related Data Allergies Allergy/AdvReac Type Severity Reaction Status Date / Time Sulfa (Sulfonamide Allergy Cannot Verified 03/08/17 16:53 Antibiotics) Remember codeine AdvReac Disorientat Verified 03/12/17 07:29 ion Home Meds: Home Meds Amitriptyline [Elavil] 25 mg PO BEDTIME 04/10/17 [History] Clopidogrel [Plavix] 75 mg PO DAILY 04/10/17 [History] Ondansetron HCl [Zofran] 4 mg PO Q6HR PRN 04/10/17 [History] PARoxetine HCl [Paroxetine HCl] 10 mg PO DAILY 04/10/17 [History] Warfarin Sodium 5 mg PO SUTUWETHSA 04/10/17 [History] Warfarin Sodium 7.5 mg PO MOFR 04/10/17 [History] atorvaSTATin [Lipitor] 10 mg PO DAILY 04/10/17 [History] oxyCODONE HCl/Acetaminophen [Oxycodone-Acetaminophen 5-300] 1 each PO Q6HR PRN 04/10/17 [History] Past Medical History HEENT History: Reports: Cataract, Macular Degeneration Cardiovascular History: Reports: Afib, OR, Stents Other Cardiovascular History: resolved after surgery; end of december of last year Respiratory History: Reports: None, Other (See Below) Other Respiratory History: rib fx Other Gastrointestinal History: during surgery intestine punctured Genitourinary History: Reports: Urinary Incontinence 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 OB/BYN History: x3 Musculoskeletal History: Reports: Arthritis, Fracture, Fibromyalgia Other Musculoskeletal History: hx of Fractured left side rib Neurological History: Reports: None Psychiatric History: Reports: Anxiety Endocrine/Metabolic History: Reports: Hypothyroidism Hematologic History: Reports: None Immunologic History: Reports: None Oncologic (Cancer) History: Reports: None Dermatologic History: Reports: None - Infectious Disease History Infectious Disease History: Reports: Chicken Pox - Past Surgical History Head Surgeries/Procedures: Reports: None HEENT Surgical History: Reports: Cataract Surgery Other HEENT Surgeries/Procedures: bi-lat Cardiovascular Surgical History: Reports: Other (See Below) Other Cardiovascular Surgeries/Procedures: aortic anuerysm GI Surgical History: Reports: Cholecystectomy Female Surgical History: Reports: Hysterectomy Endocrine Surgical History: Reports: None Neurological Surgical History: Reports: None Musculoskeletal Surgical History: Reports: None Social & Family History - Family History Family Medical History: Noncontributory - Tobacco Use Smoking Status *Q: Never Smoker Years of Tobacco use: 12 Packs/Tins Daily: 1 Used Tobacco, but Quit: Yes Month Tobacco Last Used: 20 years ago Second Hand Smoke Exposure: No - Caffeine Use Caffeine Use: Reports: None - Alcohol Use Days Per Week of Alcohol Use: 0 - Recreational Drug Use Recreational Drug Use: No ED ROS GENERAL - Review of Systems Review Of Systems: See Below Constitutional: Reports: No Symptoms HEENT: Reports: No Symptoms Respiratory: Reports: No Symptoms Cardiovascular: Reports: Chest Pain, Lightheadedness Endocrine: Reports: No Symptoms GI/Abdominal: Reports: No Symptoms : Reports: No Symptoms Musculoskeletal: Reports: No Symptoms Skin: Reports: No Symptoms Neurological: Reports: No Symptoms ED EXAM, GENERAL - Physical Exam Exam: See Below Exam Limited By: No Limitations General Appearance: Alert, No Apparent Distress Ears: Normal External Exam Nose: Normal Inspection Head: Atraumatic, Normocephalic Neck: Normal Inspection Respiratory/Chest: No Respiratory Distress, Lungs Clear, Normal Breath Sounds Cardiovascular: Regular Rate, Rhythm, No Edema, No Murmur GI/Abdominal: Soft, Non-Tender, No Organomegaly, No Mass Back Exam: Normal Inspection Extremities: Normal Inspection Neurological: Alert, Oriented, No Motor/Sensory Deficits EKG INTERPRETATION EKG Date: 04/10/17 Time: 10:53 Rhythm: NSR Rate (Beats/Min): 72 [place]: Normal P-Wave: Present QRS: Normal ST-T: Normal QT: Normal Course - Vital Signs Last Recorded V/S: Last Vital Signs Temp 96.9 F 04/10/17 10:20 Pulse 64 04/10/17 10:20 Resp 18 04/10/17 10:20 BP 83/69 L 04/10/17 10:41 Pulse Ox 97 04/10/17 10:20 - Orders/Labs/Meds Orders: Active Orders 24 hr Category Date Time Status Cardiac Monitoring [RC] . DIRECTED Care 04/10/17 10:34 Active EKG Documentation Completion [RC] STAT Care 04/10/17 10:35 Active Peripheral IV Care [RC] . DIRECTED Care 04/10/17 10:35 Active Sodium Chloride 0.9% [Normal Saline] 1,000 ml Med 04/10/17 10:45 Active IV .BOLUS Sodium Chloride 0.9% [Saline Flush] Med 04/10/17 10:34 Active 10 ml FLUSH ASDIRECTED PRN Peripheral IV Insertion Adult [OM.PC] Stat Oth 04/10/17 10:34 Ordered Medication Orders Sodium Chloride (Normal Saline) 1,000 mls @ 1,000 mls/hr IV .BOLUS JOHNNY Last Admin: 04/10/17 10:45 Dose: 1,000 mls/hr Sodium Chloride (Saline Flush) 10 ml FLUSH ASDIRECTED PRN PRN Reason: Keep Vein Open Last Admin: 04/10/17 10:45 Dose: 10 ml Labs: Laboratory Tests 04/10/17 04/10/17 04/10/17 Range/Units 10:42 10:42 10:42 WBC 9.98 (3.98-10.04) K/mm3 RBC 3.84 L (3.98-5.22) M/mm3 Hgb 11.1 L (11.2-15.7) gm/L Hct 34.9 (34.1-44.9) % MCV 90.9 (79.4-94.8) fl MCH 28.9 (25.6-32.2) pg MCHC 31.8 L (32.2-35.5) g/dl RDW Std Deviation 45.4 (36.4-46.3) fL Plt Count 371 H (182-369) K/mm3 MPV 8.0 L (9.4-12.3) fl Neut % (Auto) 69.2 (34.0-71.1) % Lymph % (Auto) 16.9 L (19.3-51.7) % [place] % (Auto) 11.6 (4.7-12.5) % Eos % (Auto) 1.6 (0.7-5.8) Baso % (Auto) 0.4 (0.1-1.2) % Neut # (Auto) 6.90 H (1.56-6.13) K/mm3 Lymph # (Auto) 1.69 (1.18-3.74) K/mm3 [place] # (Auto) 1.16 H (0.24-0.36) K/mm3 Eos # (Auto) 0.16 (0.04-0.36) K/mm3 Baso # (Auto) 0.04 (0.01-0.08) K/mm3 PT 26.3 H (8.0-13.0) SECONDS INR 2.29 Sodium 139 (136-145) mEq/L Potassium 3.6 (3.5-5.1) mEq/L Chloride 103 (98-107) mEq/L Carbon Dioxide 27 (21-32) mEq/L Anion Gap 12.6 (5-15) BUN 13 (7-18) mg/dL Creatinine 1.0 (0.55-1.02) mg/dL Est Cr Clr Drug Dosing 40.60 mL/min Estimated GFR (MDRD) 53 (>60) mL/min BUN/Creatinine Ratio 13.0 L (14-18) Glucose 106 (83-115) mg/dL Calcium 8.6 (8.5-10.1) mg/dL Total Bilirubin 0.5 (0.2-1.0) mg/dL AST 21 (15-37) U/L ALT 20 (14-59) U/L Alkaline Phosphatase 77 (46-116) U/L Troponin I < 0.017 (0.00-0.056) ng/mL Total Protein 6.8 (6.4-8.2) g/dl Albumin 2.9 L (3.4-5.0) g/dl Globulin 3.9 gm/dL Albumin/Globulin Ratio 0.7 L (1-2) Meds: Medications Generic Name Dose Route Start Last Admin Trade Name Freq PRN Reason Stop Dose Admin Sodium Chloride 1,000 mls @ 1,000 mls/hr 04/10/17 10:45 04/10/17 10:45 Normal Saline IV 1,000 mls/hr .BOLUS JOHNNY Administration Sodium Chloride 10 ml 04/10/17 10:34 04/10/17 10:45 Saline Flush FLUSH 10 ml ASDIRECTED PRN Administration Keep Vein Open - Re-Assessments/Exams Free Text/Narrative Re-Assessment/Exam: 04/10/17 10:57 I ordered an IV NS 500mL bolus, labs, and EKG. 04/10/17 11:57 Her EKG shows a NSR with no acute changes. CBC looks good. Her INR was 2.29. Her CMP looks good. Her troponin was negative. She feels better. Her blood pressure is [address] Long and he wanted her to follow her blood pressure the next few days. Departure - Departure Time of Disposition: 12:00 Disposition: Home, Self-Care 01 Condition: Good Clinical Impression: Accidental overdose Qualifiers: Encounter type: initial encounter Qualified Code(s): T50.901A - Poisoning by unspecified drugs, medicaments and biological substances, accidental ( unintentional), initial encounter Hypotension Qualifiers: Hypotension type: unspecified hypotension type Qualified Code(s): I95.9 - Hypotension, unspecified - Discharge Information Referrals: Benoit Long MD [Primary Care Provider] - 1 Week Forms: ED Department Discharge Additional Instructions: Take your medication as prescribed. Take your blood pressure 3 times per day for 2 days. Follow up with Dr Long this next week. - My Orders Last 24 Hours: My Active Orders 04/10/17 10:34 Cardiac Monitoring [RC] . DIRECTED Sodium Chloride 0.9% [Saline Flush] 10 ml FLUSH ASDIRECTED PRN Peripheral IV Insertion Adult [OM.PC] Stat 04/10/17 10:35 EKG Documentation Completion [RC] STAT Peripheral IV Care [RC] . DIRECTED 04/10/17 10:45 Sodium Chloride 0.9% [Normal Saline] 1,000 ml IV .BOLUS - Assessment/Plan Last 24 Hours: My Active Orders 04/10/17 10:34 Cardiac Monitoring [RC] . DIRECTED Sodium Chloride 0.9% [Saline Flush] 10 ml FLUSH ASDIRECTED PRN Peripheral IV Insertion Adult [OM.PC] Stat 04/10/17 10:35 EKG Documentation Completion [RC] STAT Peripheral IV Care [RC] . DIRECTED 04/10/17 10:45 Sodium Chloride 0.9% [Normal Saline] 1,000 ml IV .BOLUS
== END 2017-04-10 12:12 | disposition home or self-care (01) ==
LOC: JD.ED 10:10
DX: T44.6X1A Poisoning by alpha-adrenoreceptor antagonists, accidental (unintentional), initial encounter (principal); T50.0X1A Poisoning by mineralocorticoids and their antagonists, accidental (unintentional), initial encounter; T50.991A Poisoning by other drugs, medicaments and biological substances, accidental (unintentional), initial encounter; T46.4X1A Poisoning by angiotensin-converting-enzyme inhibitors, accidental (unintentional), initial encounter; T44.7X1A Poisoning by beta-adrenoreceptor antagonists, accidental (unintentional), initial encounter; I95.9 Hypotension, unspecified; R42 Dizziness and giddiness; E03.9 Hypothyroidism, unspecified; Z88.2 Allergy status to sulfonamides; Z88.5 Allergy status to narcotic agent; Z79.01 Long term (current) use of anticoagulants; Z79.899 Other long term (current) drug therapy; Z87.891 Personal history of nicotine dependence
CPT/HCPCS: 36415; 80053; 84484; 85025; 85610; 93005; 96360; 99285; J7040; J7050; 93010; 99284-25

== ENCOUNTER 2017-09-14 04:17 | Emergency (ER) | payer MEDICARE, BC ==
[2017-09-14 04:24] VITALS: BP 112/85
--- NOTE | 2017-09-14 06:10 | EDM.PDOC ---
ED HPI GENERAL MEDICAL PROBLEM - General Chief Complaint: Cardiovascular Problem Stated Complaint: [facility] Time Seen by Provider: 09/14/17 04:38 Source of Information: Reports: Patient, Family () History Limitations: Reports: No Limitations - History of Present Illness INITIAL COMMENTS - FREE TEXT/NARRATIVE: The patient states that she developed left hand numbness, that extended up her entire left upper extremity into her left jaw as a shooting pain, sometime between 02:00 and 03:00 this morning. She states that she had similar pain in December 2016, was evaluated at [facility], was found to have an elevated troponin, and ultimately received 2 coronary stents. She was started on Plavix, which she still takes. The patient states that she was found to have atrial fibrillation in February 2017. She was placed on Coumadin and Toprol-XL, initially 100 mg daily. The patient states that she gets her INR checked about every 2-3 weeks, with the most recent INR 2.4. She states that she has been experiencing episodes of dizziness and wooziness. She states that she fell out of the shower and broke 5 ribs on 03/06/2017 due to such an episode of dizziness. She developed a hemothorax, requiring drainage. She states that during the drainage of the hemothorax, she experienced another episode of atrial fibrillation. The patient states that Dr. Trinidad, her Transformer Builder, discontinued her aspirin around June 2017. She is not sure why. The patient states that she met with the EP Transformer Builder, Dr. Eid, on one occasion, but that he did not suggest any treatments for the patient's atrial fibrillation, other than continuation of metoprolol. There has been some concern that the patient's episodes of dizziness is related to her Toprol-XL, therefore it was decreased to 50 mg daily, then, to 25 mg, which she is currently taking. The patient's , however, upon discovering the patient's heart rate to be elevated this morning, presumed that she was in atrial fibrillation and gave her 50 mg of Toprol XL. Here in the ED, the patient was initially found to be tachycardic and tachypneic. An initial ECG demonstrated atrial fibrillation with RVR. As I'm seeing her, she states that she feels back to normal. The patient's PCP is Dr. Long. Chest Pain Score (Numeric/FACES): 3 - Related Data Allergies Allergy/AdvReac Type Severity Reaction Status Date / Time Sulfa (Sulfonamide Allergy Cannot Verified 09/14/17 04:43 Antibiotics) Remember codeine AdvReac Disorientat Verified 09/14/17 04:43 ion Home Meds: Home Meds Amitriptyline [Elavil] 12.5 mg PO BEDTIME 04/10/17 [History] Clopidogrel [Plavix] 75 mg PO DAILY 04/10/17 [History] Warfarin Sodium 5 mg PO SUTUTHSA 04/10/17 [History] Warfarin Sodium 7.5 mg PO MOWEFR 04/10/17 [History] atorvaSTATin [Lipitor] 10 mg PO DAILY 04/10/17 [History] Alpha Lipoic Acid 200 mg PO DAILY 09/14/17 [History] Ascorbic Acid [Vitamin C] 1,000 mg PO DAILY 09/14/17 [History] Cinnamon Bark [Cinnamon] 1,000 mg PO DAILY 09/14/17 [History] Citracal Petite 1 cap PO DAILY 09/14/17 [History] Docusate Sodium [Colace] 100 mg PO ONCALL PRN 09/14/17 [History] Fish Oil/DHA/EPA [Fish Oil 1,200 MG] 1,200 mg PO DAILY 09/14/17 [History] L.acidoph,Paracasei, B.lactis [Probiotic] 1 cap PO DAILY 09/14/17 [History] Levothyroxine [Synthroid] 88 mcg PO DAILY 09/14/17 [History] Magnesium 250 mg PO DAILY 09/14/17 [History] Metoprolol Succinate [Toprol XL] 25 mg PO DAILY 09/14/17 [History] Multivits-Min/Iron/FA/Lutein [Centrum Silver Women Tablet] 1 tab PO DAILY [History] Ubidecarenone [Co Q-10] 100 mg PO DAILY 09/14/17 [History] Vit A/Vit C/Vit E/Zinc/Copper [Icaps Areds Formula] 1 cap PO DAILY 09/14/17 [ History] Past Medical History HEENT History: Reports: Macular Degeneration Cardiovascular History: Reports: Afib (paroxysmal), Aneurysm (AAA, repaired), CAD, High Cholesterol, [place] Genitourinary History: Reports: Urinary Incontinence 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) Musculoskeletal History: Reports: Arthritis, Fracture (5 left ribs) Psychiatric History: Reports: Anxiety, Depression, Other (See Below) ( Fibromyalgia) Endocrine/Metabolic History: Reports: Hypothyroidism - Infectious Disease History Infectious Disease History: Reports: Chicken Pox - Past Surgical History HEENT Surgical History: Reports: Cataract Surgery Cardiovascular Surgical History: Reports: Coronary Artery Stent (x 2, Dec 2016) , Vascular Surgery (repair of AAA) GI Surgical History: Reports: Cholecystectomy Female Surgical History: Reports: Breast Implant (bilateral), Hysterectomy, Salpingo-Oophorectomy, Other (See Below) (Bladder suspension) Social & Family History - Family History Family Medical History: Noncontributory - Tobacco Use Smoking Status *Q: Never Smoker - Caffeine Use Caffeine Use: Reports: None - Recreational Drug Use Recreational Drug Use: No ED ROS GENERAL - Review of Systems Review Of Systems: ROS reveals no pertinent complaints other than HPI. ED EXAM, GENERAL - Physical Exam Exam: See Below Exam Limited By: No Limitations General Appearance: Alert, WD/WN, No Apparent Distress, Anxious Eye Exam: Bilateral Eye: EOMI, Normal Inspection Ears: Normal External Exam, Hearing Grossly Normal Nose: Normal Inspection, No Blood Throat/Mouth: Normal Inspection, Normal Lips, Normal Voice, No Airway Compromise Head: Atraumatic, Normocephalic Neck: Normal Inspection, Full Range of Motion Respiratory/Chest: No Respiratory Distress, Lungs Clear, Normal Breath Sounds, No Accessory Muscle Use Cardiovascular: Normal Peripheral Pulses, No Gallop, No JVD, No Murmur, No Rub, Tachycardia (Regular. Looks like NSR on monitor technician.) Peripheral Pulses: 4+: Radial (L), Radial (R) GI/Abdominal: Normal Bowel Sounds, Soft, Non-Tender, No Organomegaly, No Distention, No Abnormal Bruit, No Mass (Female) Exam: Deferred Rectal (Female) Exam: Deferred Back Exam: Normal Inspection, Full Range of Motion, NT Extremities: Normal Inspection, Normal Range of Motion, No Pedal Edema, Normal Capillary Refill Neurological: Alert, Oriented, Normal Cognition, No Motor/Sensory Deficits Psychiatric: Normal Affect Skin Exam: Warm, Dry, Intact, Normal Color, No Rash EKG INTERPRETATION EKG Date: 09/14/17 Time: 04:44 Rhythm: A-Fib Rate (Beats/Min): 130 [place]: Normal P-Wave: Absent QRS: Normal ST-T: Normal QT: Prolonged (QTc 486 ms) Comparison: Change From Previous EKG (03/13/2017 - A-fib w/ RVR, unchanged, but 04/10/2017 - NSR) Course - Vital Signs Last Recorded V/S: Last Vital Signs Temp 36.4 C 09/14/17 04:21 Pulse 132 H 09/14/17 04:21 Resp 29 H 09/14/17 04:21 BP 112/85 09/14/17 04:21 Pulse Ox 94 L 09/14/17 04:21 - Re-Assessments/Exams Free Text/Narrative Re-Assessment/Exam: 09/14/17 06:04 During my evaluation of the patient, I noticed the patient's monitor appeared to demonstrate a sinus rhythm. I ordered a second ECG, which demonstrates a normal sinus rhythm at 62 bpm. There are no acute ST or T-wave changes. No intraventricular conduction delays. No LAD. No LVH. QTc is within normal limits. The patient feels well. No further workup is needed today. Going forward, the patient and her were asking me what my opinion was with respect to her atrial fibrillation. I explained that she needs to be on an anticoagulant such as Coumadin, likely for life, to prevent a mural thrombus and stroke, and that she needs to be on Plavix for 6 months to one year after the placement of her cardiac stents, to prevent stent thrombosis. I explained the distinction between the two anticoagulants. We discussed potential options for the treatment of atrial fibrillation, including left atrial appendage closure, antidysrhythmic medications, and even ablation, however, I explained that the patient may have numerous contraindications to some or all of these options. Only Dr. Trinidad or Dr. Eid can answer those questions. With respect to the patient's metoprolol and her dizziness, she states that her dizziness is episodic, and that it comes out of the blue. If that is true, then it is not likely the Toprol XL that is causing her dizziness. I'm curious about whether or not the patient may have BPPV, although in order to make that diagnosis, the patient has to be symptomatic in front of the diagnostician. Her Toprol XL was reduced from 100 mg daily down to 25 mg daily, and while metoprolol is not an antidysrhythmic, per se, a higher dose may help to keep her out of atrial fibrillation, therefore it would be better if the patietn can take a higher dose, but not if the Toprol XL is infact contributing to her dizziness, as this has caused her serious harm, including falling, breaking ribs , and a hemothorax requiring drainage. I believe it is important to first determine what is the cause of her dizziness, address that, then deal with controlling her atrial fibrillation. This was discussed at length, and I believe that both the patient and her have a better understanding of this complicated topic. Departure - Departure Time of Disposition: 06:10 Disposition: Home, Self-Care 01 Condition: Good Clinical Impression: Paroxysmal atrial fibrillation Instructions: Atrial Fibrillation, [id number] Referrals: Benoit Long MD [Primary Care Provider] - Forms: ED Department Discharge Additional Instructions: You were seen in the emergency room for severe left hand, upper extremity, and jaw, associated with a rapid heartbeat. Workup in the ER included an ECG, which confirmed that you were in atrial fibrillation with a rapid ventricular response, however, you spontaneously converted to normal sinus rhythm in the ER. No further workup was needed. Continue to take your currently prescribed medications, including your Coumadin , Plavix, and metoprolol. Follow-up with your PCP, Dr. Long, to continue to explore the cause of your dizziness. If any other problems, please do not hesitate to return to the ER.
== END 2017-09-14 06:18 | disposition home or self-care (01) ==
LOC: JD.ED 04:17
DX: I48.0 Paroxysmal atrial fibrillation (principal); F41.9 Anxiety disorder, unspecified; F32.9 Major depressive disorder, single episode, unspecified; Z79.01 Long term (current) use of anticoagulants; Z79.899 Other long term (current) drug therapy; Z88.2 Allergy status to sulfonamides; Z88.5 Allergy status to narcotic agent
CPT/HCPCS: 93005; 93010; 99284-25; 99285-25

== ENCOUNTER 2018-03-17 02:33 | Emergency (ER) | payer MEDICARE, BC ==
[2018-03-17] MEDS ORDERED: Sodium Chloride 0.9% 10 ML Syringe FLUSH PRN (02:56)
[2018-03-17] MEDS ORDERED: Diltiazem 50 MG/10 ML SDV IVPUSH ONE (02:58)
[2018-03-17] MEDS ORDERED: Sodium Chloride 0.9% 500 ML IV SCH (03:00)
[2018-03-17] MEDS ORDERED: Diltiazem 125 MG in Sodium Chloride 0.9% 100 ML IV SCH (03:00)
--- NOTE | 2018-03-17 03:49 | EDM.PDOC ---
ED HPI GENERAL MEDICAL PROBLEM - General Chief Complaint: Cardiovascular Problem Stated Complaint: A FIB Time Seen by Provider: 03/17/18 02:49 Source of Information: Reports: Patient, Family History Limitations: Reports: No Limitations - History of Present Illness INITIAL COMMENTS - FREE TEXT/NARRATIVE: The patient presents with A-fib recurrence. The patient has a history of A- fib. She goes in and out of it. She sees Dr Long and Dr Garcia. She has been doing good on the meds she is on. She was putting away [place] decorations yesterday. She did a lot of work. She went to bed and developed a cough and took robitussin PM. This morning she woke up with discomfort in her arm. That is usually how it starts and then she felt palpitations. She has no chest pain or shortness of breath. She has no fever, chillls, cough, congestion or runny nose. She was on an antibiotic for C-dif infection until a few days ago. Onset: Sudden Duration: Hour(s): Location: Reports: Upper Extremity, Left (discomfort) Severity: Mild Improves with: Reports: None Worsens with: Reports: None Associated Symptoms: Reports: No Other Symptoms - Related Data Allergies Allergy/AdvReac Type Severity Reaction Status Date / Time Sulfa (Sulfonamide Allergy Cannot Verified 03/17/18 02:40 Antibiotics) Remember codeine AdvReac Disorientat Verified 03/17/18 02:40 ion Home Meds: Home Meds atorvaSTATin [Lipitor] 10 mg PO DAILY 04/10/17 [History] Citracal Petite 1 cap PO DAILY 09/14/17 [History] Docusate Sodium [Colace] 100 mg PO ONCALL PRN 09/14/17 [History] L.acidoph,Paracasei, B.lactis [Probiotic] 1 cap PO DAILY 09/14/17 [History] Levothyroxine [Synthroid] 88 mcg PO DAILY 09/14/17 [History] Metoprolol Succinate [Toprol XL] 12.5 mg PO BID 09/14/17 [History] Multivits-Min/Iron/FA/Lutein [Centrum Silver Women Tablet] 1 tab PO DAILY [History] Ubidecarenone [Co Q-10] 100 mg PO DAILY 09/14/17 [History] Vit A/Vit C/Vit E/Zinc/Copper [Icaps Areds Formula] 1 cap PO BID 09/14/17 [ History] DULoxetine [Cymbalta] 1 cap PO BID 01/13/18 [History] Aspirin 81 mg PO DAILY 03/17/18 [History] Rivaroxaban [Xarelto] 20 mg PO DAILY 03/17/18 [History] Past Medical History HEENT History: Reports: Macular Degeneration Cardiovascular History: Reports: Afib, Aneurysm, CAD, High Cholesterol, [place] Other Cardiovascular History: resolved after surgery; end of december of last year Respiratory History: Reports: Other (See Below) Other Respiratory History: rib fx Other Gastrointestinal History: during surgery intestine punctured Genitourinary History: Reports: Urinary Incontinence 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 Musculoskeletal History: Reports: Arthritis, Fracture Other Musculoskeletal History: hx of Fractured left side rib Neurological History: Reports: None Psychiatric History: Reports: Anxiety, Depression Endocrine/Metabolic History: Reports: Hypothyroidism Hematologic History: Reports: None Immunologic History: Reports: None Oncologic (Cancer) History: Reports: None Dermatologic History: Reports: None - Infectious Disease History Infectious Disease History: Reports: Chicken Pox - Past Surgical History Head Surgeries/Procedures: Reports: None HEENT Surgical History: Reports: Cataract Surgery Cardiovascular Surgical History: Reports: Coronary Artery Stent, Vascular Surgery, Other (See Below) Other Cardiovascular Surgeries/Procedures: angiogram last week 01/14/18 GI Surgical History: Reports: Cholecystectomy Female Surgical History: Reports: Breast Implant, Hysterectomy, Salpingo- Oophorectomy, Other (See Below) Neurological Surgical History: Reports: None Social & Family History - Family History Family Medical History: Noncontributory - Tobacco Use Smoking Status *Q: Never Smoker - Caffeine Use Caffeine Use: Reports: None - Recreational Drug Use Recreational Drug Use: No ED ROS GENERAL - Review of Systems Review Of Systems: See Below Constitutional: Reports: No Symptoms HEENT: Reports: No Symptoms Respiratory: Reports: No Symptoms Cardiovascular: Reports: Palpitations. Denies: Chest Pain Endocrine: Reports: No Symptoms GI/Abdominal: Reports: No Symptoms : Reports: No Symptoms Musculoskeletal: Reports: Other (Left arm discomofort) ED EXAM, GENERAL - Physical Exam Exam: See Below Exam Limited By: No Limitations General Appearance: Alert, No Apparent Distress Ears: Normal External Exam Nose: Normal Inspection Head: Atraumatic, Normocephalic Neck: Normal Inspection Respiratory/Chest: No Respiratory Distress, Lungs Clear, Normal Breath Sounds Cardiovascular: No Edema, No Murmur, Tachycardia, Irregularly Irregular EKG INTERPRETATION EKG Date: 03/17/18 Time: 02:40 Rhythm: A-Fib Rate (Beats/Min): 133 [place]: Normal QRS: Normal ST-T: Normal QT: Normal Course - Vital Signs Last Recorded V/S: Last Vital Signs Temp 97.9 F 03/17/18 02:38 Pulse 134 H 03/17/18 02:38 Resp 16 03/17/18 02:38 BP Pulse Ox 94 L 03/17/18 02:38 - Orders/Labs/Meds Orders: Active Orders 24 hr Category Date Time Status Cardiac Monitoring [RC] . DIRECTED Care 03/17/18 02:56 Active EKG Documentation Completion [RC] ASDIRECTED Care 03/17/18 02:42 Active Peripheral IV Care [RC] . DIRECTED Care 03/17/18 02:57 Active Chest 1V Frontal [CR] Stat Exams 03/17/18 02:57 Taken Diltiazem 125 mg Med 03/17/18 03:00 Active Sodium Chloride 0.9% [Normal Saline] 100 ml IV TITRATE Sodium Chloride 0.9% [Normal Saline] 500 ml Med 03/17/18 03:00 Active IV .BOLUS Sodium Chloride 0.9% [Saline Flush] Med 03/17/18 02:56 Active 10 ml FLUSH ASDIRECTED PRN Peripheral IV Insertion Adult [OM.PC] Stat Oth 03/17/18 02:56 Ordered EKG 12 Lead [EK] Stat Ther 03/17/18 02:42 Ordered Medication Orders Sodium Chloride (Normal Saline) 500 mls @ 1,000 mls/hr IV .BOLUS JOHNNY Last Admin: 03/17/18 03:05 Dose: 1,000 mls/hr Diltiazem HCl 125 mg/ Sodium (Chloride) 125 mls @ 5 mls/hr IV TITRATE JOHNNY; Protocol Last Admin: 03/17/18 03:29 Dose: 5 mg/hr, 5 mls/hr Sodium Chloride (Saline Flush) 10 ml FLUSH ASDIRECTED PRN PRN Reason: Keep Vein Open Last Admin: 03/17/18 03:07 Dose: 10 ml Labs: Laboratory Tests 03/17/18 03/17/18 Range/Units 02:40 02:40 WBC 10.37 H (3.98-10.04) K/mm3 RBC 5.18 (3.98-5.22) M/mm3 Hgb 15.8 H (11.2-15.7) gm/L Hct 47.9 H (34.1-44.9) % MCV 92.5 (79.4-94.8) fl MCH 30.5 (25.6-32.2) pg MCHC 33.0 (32.2-35.5) g/dl RDW Std Deviation 47.8 H (36.4-46.3) fL Plt Count 285 (182-369) K/mm3 MPV 9.9 (9.4-12.3) fl Neut % (Auto) 49.2 (34.0-71.1) % Lymph % (Auto) 34.8 (19.3-51.7) % [place] % (Auto) 12.6 H (4.7-12.5) % Eos % (Auto) 2.3 (0.7-5.8) Baso % (Auto) 0.7 (0.1-1.2) % Neut # (Auto) 5.10 (1.56-6.13) K/mm3 Lymph # (Auto) 3.61 (1.18-3.74) K/mm3 [place] # (Auto) 1.31 H (0.24-0.36) K/mm3 Eos # (Auto) 0.24 (0.04-0.36) K/mm3 Baso # (Auto) 0.07 (0.01-0.08) K/mm3 Sodium 145 (136-145) mEq/L Potassium 3.7 (3.5-5.1) mEq/L Chloride 107 (98-107) mEq/L Carbon Dioxide 28 (21-32) mEq/L Anion Gap 13.7 (5-15) BUN 18 (7-18) mg/dL Creatinine 1.0 (0.55-1.02) mg/dL Est Cr Clr Drug Dosing 41.45 mL/min Estimated GFR (MDRD) 53 (>60) mL/min BUN/Creatinine Ratio 18.0 (14-18) Glucose 97 (83-115) mg/dL Calcium 9.0 (8.5-10.1) mg/dL Total Bilirubin 1.1 H (0.2-1.0) mg/dL AST 25 (15-37) U/L ALT 33 (14-59) U/L Alkaline Phosphatase 101 (46-116) U/L Troponin I < 0.017 (0.00-0.056) ng/mL Total Protein 7.7 (6.4-8.2) g/dl Albumin 3.8 (3.4-5.0) g/dl Globulin 3.9 gm/dL Albumin/Globulin Ratio 1.0 (1-2) Meds: Medications Generic Name Dose Route Start Last Admin Trade Name Freq PRN Reason Stop Dose Admin Sodium Chloride 500 mls @ 1,000 mls/hr 03/17/18 03:00 03/17/18 03:05 Normal Saline IV 1,000 mls/hr .BOLUS JOHNNY Administration Diltiazem HCl 125 mg/ Sodium 125 mls @ 5 mls/hr 03/17/18 03:00 03/17/18 03:29 Chloride IV 5 mg/hr TITRATE JOHNNY 5 mls/hr Administration Protocol 5 MG/HR Sodium Chloride 10 ml 03/17/18 02:56 03/17/18 03:07 Saline Flush FLUSH 10 ml ASDIRECTED PRN Administration Keep Vein Open Discontinued Medications Generic Name Dose Route Start Last Admin Trade Name Freq PRN Reason Stop Dose Admin Diltiazem HCl 10 mg 03/17/18 02:58 03/17/18 03:10 Cardizem IVPUSH 03/17/18 02:59 10 mg ONETIME ONE Administration - Re-Assessments/Exams Free Text/Narrative Re-Assessment/Exam: 03/17/18 03:50 I ordered an IV NS 500mL bolus, cardizem bolus of 10mg IV, cardizem drip at 5mg IV, labs, EKG and a CXR. Her EKG shows A-fib at a rate of 133. 03/17/18 05:32 Her CXR looks good. Her WBC was a little elevated at 10.37. Her Hgb was a little elevated at 15.8. Her CMP is negative. Her troponin was normal. Her BP went down to I had to order another bolus. That helped and she was able to get the cardizem bolus and drip and she converted. She feels better and would like to go home. I will not make any changes to her meds yet. They should contact Dr Long. Departure - Departure Time of Disposition: 05:35 Disposition: Home, Self-Care 01 Condition: Good Clinical Impression: Atrial fibrillation with RVR Referrals: Benoit Long MD [Primary Care Provider] - 1 Week Forms: ED Department Discharge Additional Instructions: Take your medication as prescribed. Follow up with Dr Long within a week. Please return if you are worse. - My Orders Last 24 Hours: My Active Orders 03/17/18 02:42 EKG Documentation Completion [RC] ASDIRECTED EKG 12 Lead [EK] Stat 03/17/18 02:56 Cardiac Monitoring [RC] . DIRECTED Sodium Chloride 0.9% [Saline Flush] 10 ml FLUSH ASDIRECTED PRN Peripheral IV Insertion Adult [OM.PC] Stat 03/17/18 02:57 Peripheral IV Care [RC] . DIRECTED Chest 1V Frontal [CR] Stat 03/17/18 03:00 Diltiazem 125 mg Sodium Chloride 0.9% [Normal Saline] 100 ml IV TITRATE Sodium Chloride 0.9% [Normal Saline] 500 ml IV .BOLUS - Assessment/Plan Last 24 Hours: My Active Orders 03/17/18 02:42 EKG Documentation Completion [RC] ASDIRECTED EKG 12 Lead [EK] Stat 03/17/18 02:56 Cardiac Monitoring [RC] . DIRECTED Sodium Chloride 0.9% [Saline Flush] 10 ml FLUSH ASDIRECTED PRN Peripheral IV Insertion Adult [OM.PC] Stat 03/17/18 02:57 Peripheral IV Care [RC] . DIRECTED Chest 1V Frontal [CR] Stat 03/17/18 03:00 Diltiazem 125 mg Sodium Chloride 0.9% [Normal Saline] 100 ml IV TITRATE Sodium Chloride 0.9% [Normal Saline] 500 ml IV .BOLUS
--- NOTE | 2018-03-17 16:59 | CR ---
Chest: Portable view of the chest was obtained. Comparison: Prior chest x-ray of 01/20/18. Calcified breast prosthesis is incidentally noted. Heart is mildly enlarged. Pulmonary vessels are slightly increased which appear to be chronic. No acute parenchymal change is seen. Previous sternotomy is noted. Bony structures are grossly intact. Impression: 1. Cardiomegaly and mild chronic pulmonary vascular congestion. 2. Other incidental findings. Diagnostic code #3
== END 2018-03-17 05:49 | disposition home or self-care (01) ==
LOC: JD.ED 02:33
DX: I48.2 Chronic atrial fibrillation (principal); E78.00 Pure hypercholesterolemia, unspecified; I25.10 Atherosclerotic heart disease of native coronary artery without angina pectoris; F32.9 Major depressive disorder, single episode, unspecified; E03.9 Hypothyroidism, unspecified; I25.2 Old myocardial infarction; Z79.01 Long term (current) use of anticoagulants; Z79.82 Long term (current) use of aspirin; Z79.899 Other long term (current) drug therapy; Z88.2 Allergy status to sulfonamides; Z88.5 Allergy status to narcotic agent; Z91.048 Other nonmedicinal substance allergy status; Z98.61 Coronary angioplasty status; Z98.890 Other specified postprocedural states; Z90.49 Acquired absence of other specified parts of digestive tract; Z90.712 Acquired absence of cervix with remaining uterus
CPT/HCPCS: 36415; 71045; 80053; 84484; 85025; 93005; 96365; 96366; 96375; 99285; J3490; J7030; J7040; 93010; 99284

== ENCOUNTER 2018-06-16 03:47 | Emergency (ER) | payer MEDICARE, BC ==
[2018-06-16 03:54] VITALS: BP 119/72
[2018-06-16] MEDS ORDERED: Diltiazem 50 MG/10 ML SDV IVPUSH ONE (04:00)
[2018-06-16] MEDS ORDERED: Diltiazem 125 MG in Sodium Chloride 0.9% 100 ML IV SCH (04:00)
--- NOTE | 2018-06-16 04:13 | EDM.PDOC ---
ED HPI GENERAL MEDICAL PROBLEM - General Chief Complaint: Cardiovascular Problem Stated Complaint: [facility] Time Seen by Provider: 06/16/18 03:57 Source of Information: Reports: Patient History Limitations: Reports: No Limitations - History of Present Illness INITIAL COMMENTS - FREE TEXT/NARRATIVE: This is an 82-year-old female. She has been seen multiple times in the ER for acute onset of atrial fibrillation. Apparently this morning around 2 AM she noted the typical stinging in her left wrist upper left arm and mild discomfort in the left chest with palpitations. She didn't feel well and she realized she was in atrial fibrillation so she called the ambulance and she comes to the ER. She took an extra dose of metoprolol prior to coming to the ER. She denies any shortness of breath she denies any sweating and no significant chest pain. She really hasn't done any different activity or extra activity over the last few days to suggest an etiology for the atrial fibrillation to start. - Related Data Allergies Allergy/AdvReac Type Severity Reaction Status Date / Time codeine AdvReac Disorientat Verified 06/16/18 03:51 ion Home Meds: Home Meds atorvaSTATin [Lipitor] 10 mg PO DAILY 04/10/17 [History] L.acidoph,Paracasei, B.lactis [Probiotic] 1 cap PO DAILY 09/14/17 [History] Levothyroxine [Synthroid] 88 mcg PO DAILY 09/14/17 [History] Metoprolol Succinate [Toprol XL] 12.5 mg PO BID 09/14/17 [History] Ubidecarenone [Co Q-10] 100 mg PO DAILY 09/14/17 [History] Vit A/Vit C/Vit E/Zinc/Copper [Icaps Areds Formula] 1 cap PO BID 09/14/17 [ History] DULoxetine [Cymbalta] 1 cap PO BID 01/13/18 [History] Aspirin 81 mg PO DAILY 03/17/18 [History] Apixaban [Eliquis] 5 mg PO BID 06/16/18 [History] Cholecalciferol (Vitamin D3) [Vitamin D] 1,000 unit PO DAILY 06/16/18 [History] Past Medical History HEENT History: Reports: Macular Degeneration Cardiovascular History: Reports: Afib, Aneurysm, CAD, High Cholesterol, [place] Other Cardiovascular History: resolved after surgery; end of december of last year Respiratory History: Reports: Other (See Below) Other Respiratory History: rib fx Other Gastrointestinal History: during surgery intestine punctured Genitourinary History: Reports: Urinary Incontinence 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 Musculoskeletal History: Reports: Arthritis, Fracture Other Musculoskeletal History: hx of Fractured left side rib Neurological History: Reports: None Psychiatric History: Reports: Anxiety, Depression Endocrine/Metabolic History: Reports: Hypothyroidism Hematologic History: Reports: None Immunologic History: Reports: None Oncologic (Cancer) History: Reports: None Dermatologic History: Reports: None - Infectious Disease History Infectious Disease History: Reports: Chicken Pox - Past Surgical History Head Surgeries/Procedures: Reports: None HEENT Surgical History: Reports: Cataract Surgery Cardiovascular Surgical History: Reports: Coronary Artery Stent, Vascular Surgery, Other (See Below) Other Cardiovascular Surgeries/Procedures: angiogram last week 01/14/18 GI Surgical History: Reports: Cholecystectomy Female Surgical History: Reports: Breast Implant, Hysterectomy, Salpingo- Oophorectomy, Other (See Below) Neurological Surgical History: Reports: None Social & Family History - Family History Family Medical History: Noncontributory - Caffeine Use Caffeine Use: Reports: None ED ROS GENERAL - Review of Systems Review Of Systems: See Below Constitutional: Denies: Fever, Chills HEENT: Reports: No Symptoms Respiratory: Denies: Shortness of Breath, Cough Cardiovascular: Denies: Chest Pain, Dyspnea on Exertion, Edema Endocrine: Reports: No Symptoms GI/Abdominal: Denies: Abdominal Pain, Nausea, Vomiting : Reports: No Symptoms Musculoskeletal: Reports: Other (As per history of present illness) Skin: Reports: No Symptoms Neurological: Reports: No Symptoms Psychiatric: Reports: No Symptoms Hematologic/Lymphatic: Reports: No Symptoms ED EXAM, GENERAL - Physical Exam Exam: See Below Exam Limited By: No Limitations General Appearance: Alert, WD/WN, No Apparent Distress Eye Exam: Bilateral Eye: Normal Inspection Ears: Normal External Exam Nose: Normal Inspection Throat/Mouth: Normal Inspection, Normal Lips, Normal Voice, No Airway Compromise Head: Normocephalic Neck: Supple Respiratory/Chest: No Respiratory Distress, Lungs Clear, Normal Breath Sounds Cardiovascular: No Murmur, Tachycardia, Irregularly Irregular GI/Abdominal: Soft Back Exam: Decreased Range of Motion Extremities: Normal Inspection, Normal Range of Motion. No: Pedal Edema Neurological: Alert, Oriented Psychiatric: Normal Affect, Normal Mood Skin Exam: Warm, Dry EKG INTERPRETATION EKG Date: 06/16/18 Time: 03:48 EKG Interpretation Comments: EKG shows a atrial fibrillation with a rapid ventricular response rate of 116, there is no acute ST or T-wave changes noted and there is no ischemia noted 06/16/2018 05:21 Second EKG shows a normal sinus rhythm rate of about 53, there are no acute ST or T-wave changes and no ischemia noted. Course - Vital Signs Last Recorded V/S: Last Vital Signs Temp 98.5 F 06/16/18 03:51 Pulse 125 H 06/16/18 03:51 Resp 18 06/16/18 03:51 BP 119/72 06/16/18 03:51 Pulse Ox 99 06/16/18 03:51 - Orders/Labs/Meds Orders: Active Orders 24 hr Category Date Time Status Diltiazem 125 mg Med 06/16/18 04:00 Active Sodium Chloride 0.9% [Normal Saline] 100 ml IV TITRATE Sodium Chloride 0.9% [Normal Saline] 1,000 ml Med 06/16/18 04:15 Active IV ASDIRECTED Medication Orders Diltiazem HCl 125 mg/ Sodium (Chloride) 125 mls @ 5 mls/hr IV TITRATE JOHNNY; Protocol Last Admin: 06/16/18 04:27 Dose: 5 mg/hr, 5 mls/hr Sodium Chloride (Normal Saline) 1,000 mls @ 1,000 mls/hr IV ASDIRECTED JOHNNY Last Admin: 06/16/18 04:29 Dose: 1,000 mls/hr Labs: Laboratory Tests 06/16/18 06/16/18 Range/Units 04:03 04:03 WBC 10.69 H (3.98-10.04) K/mm3 RBC 4.66 (3.98-5.22) M/mm3 Hgb 14.2 (11.2-15.7) gm/L Hct 42.9 (34.1-44.9) % MCV 92.1 (79.4-94.8) fl MCH 30.5 (25.6-32.2) pg MCHC 33.1 (32.2-35.5) g/dl RDW Std Deviation 45.2 (36.4-46.3) fL Plt Count 229 (182-369) K/mm3 MPV 9.9 (9.4-12.3) fl Neut % (Auto) 52.7 (34.0-71.1) % Lymph % (Auto) 31.2 (19.3-51.7) % [place] % (Auto) 13.8 H (4.7-12.5) % Eos % (Auto) 1.7 (0.7-5.8) Baso % (Auto) 0.4 (0.1-1.2) % Neut # (Auto) 5.65 (1.56-6.13) K/mm3 Lymph # (Auto) 3.33 (1.18-3.74) K/mm3 [place] # (Auto) 1.47 H (0.24-0.36) K/mm3 Eos # (Auto) 0.18 (0.04-0.36) K/mm3 Baso # (Auto) 0.04 (0.01-0.08) K/mm3 Sodium 143 (136-145) mEq/L Potassium 3.8 (3.5-5.1) mEq/L Chloride 107 (98-107) mEq/L Carbon Dioxide 31 (21-32) mEq/L Anion Gap 8.8 (5-15) BUN 20 H (7-18) mg/dL Creatinine 0.9 (0.55-1.02) mg/dL Est Cr Clr Drug Dosing 44.34 mL/min Estimated GFR (MDRD) 60 (>60) mL/min BUN/Creatinine Ratio 22.2 H (14-18) Glucose 89 (83-115) mg/dL Calcium 8.8 (8.5-10.1) mg/dL Magnesium 1.9 (1.8-2.4) mg/dl Total Bilirubin 1.3 H (0.2-1.0) mg/dL AST 21 (15-37) U/L ALT 13 L (14-59) U/L Alkaline Phosphatase 90 (46-116) U/L Troponin I < 0.017 (0.00-0.056) ng/mL Total Protein 6.8 (6.4-8.2) g/dl Albumin 3.4 (3.4-5.0) g/dl Globulin 3.4 gm/dL Albumin/Globulin Ratio 1.0 (1-2) Meds: Medications Generic Name Dose Route Start Last Admin Trade Name Freq PRN Reason Stop Dose Admin Diltiazem HCl 125 mg/ Sodium 125 mls @ 5 mls/hr 06/16/18 04:00 06/16/18 04:27 Chloride IV 5 mg/hr TITRATE JOHNNY 5 mls/hr Administration Protocol 5 MG/HR Sodium Chloride 1,000 mls @ 1,000 mls/hr 06/16/18 04:15 06/16/18 04:29 Normal Saline IV 1,000 mls/hr ASDIRECTED JOHNNY Administration Discontinued Medications Generic Name Dose Route Start Last Admin Trade Name Freq PRN Reason Stop Dose Admin Diltiazem HCl 10 mg 06/16/18 04:00 06/16/18 04:10 Cardizem IVPUSH 06/16/18 04:01 10 mg ONETIME ONE Administration - Re-Assessments/Exams Free Text/Narrative Re-Assessment/Exam: 06/16/18 05:15 She got here the EKG showed atrial fibrillation with a fast ventricular response rate of about 116 on normal monitor she was 120 to 1:30. I gave her diltiazem 10 mg IV and put her on a 5 mg drip within about 60 minutes she converted to a normal sinus rhythm. We left a diltiazem drip running for about 15 minutes and stopped it. During the time she is on the drip for blood pressure systolic stays in the 90s and once we stopped the drip it comes back up to 115 I did give her some fluids during this time as well of about 1000 mL. She is tolerated this well. She remains in a normal sinus rhythm and I will discharge her to follow-up with her doctor this week. 06/16/18 05:17 All the patient's blood work was essentially within normal limits. 06/16/18 05:23 Patient is feeling good and she wants to go home. Departure - Departure Time of Disposition: 05:23 Disposition: Home, Self-Care 01 Condition: Good Clinical Impression: Atrial fibrillation with rapid ventricular response Referrals: Benoit Long MD [Primary Care Provider] - Forms: ED Department Discharge Additional Instructions: Continue with the medications as prescribed by your family doctor, follow-up with your family doctor this coming week or as scheduled, when you see him ask him about having some diltiazem at home to take when you feel the atrial fibrillation, remember however that when you take the diltiazem it does drop your blood pressure systolic down to the 90s and you need to be lying down and stay lying down until your blood pressure comes back up or you convert from atrial fibrillation to a normal rhythm, if you do not convert with 1 hour then you will need to return to the ER - My Orders Last 24 Hours: My Active Orders 06/16/18 04:00 Diltiazem 125 mg Sodium Chloride 0.9% [Normal Saline] 100 ml IV TITRATE 06/16/18 04:15 Sodium Chloride 0.9% [Normal Saline] 1,000 ml IV ASDIRECTED - Assessment/Plan Last 24 Hours: My Active Orders 06/16/18 04:00 Diltiazem 125 mg Sodium Chloride 0.9% [Normal Saline] 100 ml IV TITRATE 06/16/18 04:15 Sodium Chloride 0.9% [Normal Saline] 1,000 ml IV ASDIRECTED
[2018-06-16] MEDS ORDERED: Sodium Chloride 0.9% 1,000 ML IV SCH (04:15)
== END 2018-06-16 05:43 | disposition home or self-care (01) ==
LOC: JD.ED 03:47 → SUPCPDRO 03:47 → JD.ED 05:43
DX: I48.91 Unspecified atrial fibrillation (principal); I25.10 Atherosclerotic heart disease of native coronary artery without angina pectoris; E78.00 Pure hypercholesterolemia, unspecified; I25.2 Old myocardial infarction; F41.9 Anxiety disorder, unspecified; F32.9 Major depressive disorder, single episode, unspecified; E03.9 Hypothyroidism, unspecified; Z88.5 Allergy status to narcotic agent; Z79.899 Other long term (current) drug therapy; Z79.82 Long term (current) use of aspirin
CPT/HCPCS: 36415; 80053; 83735; 84484; 85025; 93005; 96361; 96365; 99285; J3490; J7030; J7040; 93010

== ENCOUNTER 2018-08-17 07:30 | Emergency (ER) | payer MEDICARE, BC ==
[2018-08-17 07:41] VITALS: BP 126/57
[2018-08-17] MEDS ORDERED: Gentamicin 0.3% Ophth Soln 5 ML Bottle EYEBOTH ONE (07:56)
--- NOTE | 2018-08-17 08:00 | EDM.PDOC ---
ED HPI GENERAL MEDICAL PROBLEM - General Chief Complaint: ENT Problem Stated Complaint: EAR BLEEDING Time Seen by Provider: 08/17/18 07:46 Source of Information: Reports: Patient, Family (spouse) History Limitations: Reports: No Limitations - History of Present Illness INITIAL COMMENTS - FREE TEXT/NARRATIVE: 82-year-old female presents to the ED with bleeding from her left ear canal. She reports that she got up about 0130 hrs. this morning and had to void. She appreciated the itchiness of her left ear and use a Q-tip to try and soothe the itch. She states she became startled and gave her ear a good jab at that time but did not think that she had hurt herself. Upon awakening this morning she found a good deal of blood and clot on her pillowcase. Of note the patient is on Eliquis 5 mg twice a day for atrial fibrillation. She denies any change in her hearing or muffled hearing. Secondly she appreciated that arise worse somewhat stuck shut this morning and were crusted over particularly on the right side. Onset: Today Onset Date: 08/17/18 Onset Time: 01:30 Duration: Hour(s): Location: Reports: Face (Left ear bleeding. Crusted eyes this morning.) Quality: Reports: Ache (Mild ache in her left ear.), Burning (Burning both eyes worse on the right side.), Stabbing (Left ear) Severity: Moderate (Left ear) Improves with: Reports: None Worsens with: Reports: None Context: Reports: Trauma (Q-tip trauma during the night.). Denies: Activity, Exercise, Lifting, Sick Contact Associated Symptoms: Reports: Shortness of Breath. 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 (see below) (None.) Left Ear Pain Score (Numeric/FACES): 0 - Related Data Allergies Allergy/AdvReac Type Severity Reaction Status Date / Time nitrofurantoin Allergy Cannot Verified 08/17/18 07:45 Remember codeine AdvReac Disorientat Verified 08/17/18 07:37 ion Home Meds: Home Meds atorvaSTATin [Lipitor] 10 mg PO DAILY 04/10/17 [History] L.acidoph,Paracasei, B.lactis [Probiotic] 1 cap PO DAILY 09/14/17 [History] Levothyroxine [Synthroid] 88 mcg PO DAILY 09/14/17 [History] Metoprolol Succinate [Toprol XL] 25 mg PO BID 09/14/17 [History] Ubidecarenone [Co Q-10] 100 mg PO DAILY 09/14/17 [History] Vit A/Vit C/Vit E/Zinc/Copper [Icaps Areds Formula] 1 cap PO BID 09/14/17 [ History] DULoxetine [Cymbalta] 1 cap PO BID 01/13/18 [History] Aspirin 81 mg PO DAILY 03/17/18 [History] Apixaban [Eliquis] 5 mg PO BID 06/16/18 [History] Cholecalciferol (Vitamin D3) [Vitamin D] 1,000 unit PO DAILY 06/16/18 [History] Docusate Sodium [Colace] 100 mg PO DAILY PRN 08/17/18 [History] oxyCODONE HCl/Acetaminophen [Percocet 5-325 mg Tablet] 1 - 2 each PO Q4H PRN # 20 tablet 08/17/18 [Rx] Past Medical History HEENT History: Reports: Macular Degeneration, Other (See Below) (Presents with bleeding from left ear canal.) Cardiovascular History: Reports: Afib (On Eliquis 5 mg twice a day), Aneurysm, CAD, High Cholesterol, [place] Other Cardiovascular History: resolved after surgery; end of december of last year Respiratory History: Reports: Other (See Below) Other Respiratory History: rib fx Other Gastrointestinal History: during surgery intestine punctured Genitourinary History: Reports: Urinary Incontinence 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 IMPROVEMENT ANALYST 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: x3 Musculoskeletal History: Reports: Arthritis, Fracture Other Musculoskeletal History: hx of Fractured left side rib Neurological History: Reports: None Psychiatric History: Reports: Anxiety, Depression Endocrine/Metabolic History: Reports: Hypothyroidism Hematologic History: Reports: None Immunologic History: Reports: None Oncologic (Cancer) History: Reports: None Dermatologic History: Reports: None - Infectious Disease History Infectious Disease History: Reports: Chicken Pox - Past Surgical History Head Surgeries/Procedures: Reports: None HEENT Surgical History: Reports: Cataract Surgery Cardiovascular Surgical History: Reports: Coronary Artery Stent, Vascular Surgery, Other (See Below) Other Cardiovascular Surgeries/Procedures: angiogram last week 01/14/18 GI Surgical History: Reports: Cholecystectomy Female Surgical History: Reports: Breast Implant, Hysterectomy, Salpingo- Oophorectomy, Other (See Below) Neurological Surgical History: Reports: None Social & Family History - Family History Family Medical History: Noncontributory - Tobacco Use Smoking Status *Q: Never Smoker - Caffeine Use Caffeine Use: Reports: None - Recreational Drug Use Recreational Drug Use: No - Living Situation & Occupation Living situation: Reports: Occupation: Retired ED ROS ENT - Review of Systems Review Of Systems: See Below Constitutional: Reports: No Symptoms HEENT: Reports: Ear Discharge (Blood from the left ear canal), Ear Pain, Eye Discharge ( particularly noted on her pillowcase this morning. both eyes had discharge this morning and were crusted shut worse on the right side as compared to the left.) Respiratory: Reports: Shortness of Breath. Denies: Wheezing, Pleuritic Chest Pain, Cough, Sputum, Hemoptysis, Other Cardiovascular: Reports: Blood Pressure Problem, Dyspnea on Exertion, Lightheadedness (Dary usually.). Denies: Claudication, Edema, Orthopnea (Often runs low due to medications) Endocrine: Reports: Fatigue GI/Abdominal: Reports: Constipation (Occasional prongs of constipation) : Reports: Frequency, Urgency Musculoskeletal: Reports: Back Pain Skin: Reports: Bruising (Bruises easily due to being on Eliquis) Neurological: Reports: No Symptoms Psychiatric: Reports: No Symptoms Hematologic/Lymphatic: Reports: No Symptoms Immunologic: Reports: No Symptoms ED EXAM, ENT - Physical Exam Exam: See Below Exam Limited By: No Limitations General Appearance: Alert, WD/WN, Mild Distress Eye Exam: Bilateral Eye: Conjunctival Injection (Both peripheral margins were mildly erythematous on the inferior aspects worse on the right as compared to the left with slight purulent discharge on the right medial canthus), PERRL Ears: Hearing Grossly Normal, Normal TMs, Canal Blood (Left side), Other ( Patient is suffered a acute traumatic injury to her left ear canal from Q-tip. There is still a fair amount of blood in the floor of the ear canal up against the eardrum.). No: Normal Canal Mouth/Throat: Normal Inspection, Normal Gums, Normal Lips Course - Vital Signs Last Recorded V/S: Last Vital Signs Temp 36.4 C 08/17/18 07:39 Pulse 56 L 08/17/18 07:39 Resp 16 08/17/18 07:39 BP 126/57 L 08/17/18 07:39 Pulse Ox 98 08/17/18 07:39 - Orders/Labs/Meds Meds: Medications Discontinued Medications Generic Name Dose Route Start Last Admin Trade Name Finn PRN Reason Stop Dose Admin Gentamicin Sulfate 2.5 ml 08/17/18 07:56 Garamycin 0.3% Ophth Soln EYEBOTH 08/17/18 07:57 ONETIME ONE - Radiology Interpretation Free Text/Narrative:: 82-year-old female presents to the ED with blood noted on her pillowcase this morning draining from her left ear. She states she woke earlier this morning around 0130 hrs. to void. She had itching in her left ear canal and used a Q- tip to try and soothe this. She states she became startled and she did jam the Q -tip hard into her left ear at that time. She didn't think that she would hurt herself. Ranger to find blood coming out of her left ear this morning when she awoke in the pillowcase had quite a bit of blood on an as well. Of note the patient is on Eliquis 5 mg twice a day for atrial fibrillation. Second problem was she awoke with crusted eyes this morning she clinically has mild bacterial conjunctivitis of both eyes right worse than the left. Examination shows that she has a contusion with a lot of bleeding in the floor of the left ear canal that I can't reach with a silver nitrate stick. The eardrum is intact however. Landed Garamycin ophthalmic drops 2 drops to each eye 3 times a day and to use 2 drops to the left ear 3 times a day for 4 days. Percocet tabs 5/3/25 milligrams one tablet every 6-8 hours as necessary for pain relief. Departure - Departure Time of Disposition: 07:58 Disposition: Home, Self-Care 01 Condition: Fair Clinical Impression: Otitis externa Qualifiers: Otitis externa type: hemorrhagic Chronicity: acute Laterality: left Qualified Code(s): H60.322 - Hemorrhagic otitis externa, left ear Conjunctivitis Qualifiers: Conjunctivitis type: acute Acute conjunctivitis type: unspecified Laterality: bilateral Qualified Code(s): H10.33 - Unspecified acute conjunctivitis, bilateral - Discharge Information *PRESCRIPTION DRUG MONITORING PROGRAM REVIEWED*: Not Applicable *COPY OF PRESCRIPTION DRUG MONITORING REPORT IN PATIENT FAITH: Not Applicable Prescriptions: oxyCODONE HCl/Acetaminophen [Percocet 5-325 mg Tablet] 1 - 2 each PO Q4H PRN # 20 tablet PRN Reason: pain relief. Instructions: Otitis Externa, Bacterial Conjunctivitis Referrals: Benoit Long MD [Primary Care Provider] - Forms: ED Department Discharge Additional Instructions: Evaluation the emergency room this morning in regards to eyes been stuck shut this morning when he awoke. There appears to be an early infection developing in the right eye which we call conjunctivitis. Second problem was irritation of the left ear canal from a Q-tip earlier this morning. The eardrum is intact but there is blood along the floor of the left ear canal which we call otitis externa. You're prescribed Garamycin ophthalmic drops to be used 2 drops to each eye 3 times daily for 3 days and similarly 2 drops to the left ear 3 times daily for the next 4-5 days to prevent infection and clear by infection. Labs 5/ 325 mg one or 2 every 6 hours as needed for relief of back pain.
== END 2018-08-17 08:13 | disposition home or self-care (01) ==
LOC: JD.ED 07:30
DX: H60.322 Hemorrhagic otitis externa, left ear (principal); H10.33 Unspecified acute conjunctivitis, bilateral; I48.91 Unspecified atrial fibrillation; Z79.01 Long term (current) use of anticoagulants; F41.9 Anxiety disorder, unspecified; F32.9 Major depressive disorder, single episode, unspecified; E03.9 Hypothyroidism, unspecified; Z88.8 Allergy status to other drugs, medicaments and biological substances; Z88.5 Allergy status to narcotic agent; Z79.899 Other long term (current) drug therapy; Z79.82 Long term (current) use of aspirin
CPT/HCPCS: 99282; 99283

== ENCOUNTER 2018-11-12 01:21 | Emergency (ER) | payer MEDICARE, BC ==
--- NOTE | 2018-11-12 01:30 | EDM.PDOC ---
ED HPI GENERAL MEDICAL PROBLEM - General Chief Complaint: Cardiovascular Problem Stated Complaint: A-FIB Time Seen by Provider: 11/12/18 01:28 - History of Present Illness INITIAL COMMENTS - FREE TEXT/NARRATIVE: 82-year-old female presents emergency room with palpitations. Patient has a long history of atrial fibrillation. She is on Eliquis and recently she's had her beta blockers decreased. She's been in multiple times with this in the past. She denies any chest pain or chest pressure. Patient states she really overdid it yesterday getting stuff done around the house and shopping for house supplies and equipment. - Related Data Allergies Allergy/AdvReac Type Severity Reaction Status Date / Time Sulfa (Sulfonamide Allergy Rash Verified 11/12/18 01:31 Antibiotics) Home Meds: Home Meds atorvaSTATin [Lipitor] 10 mg PO DAILY 04/10/17 [History] L.acidoph,Paracasei, B.lactis [Probiotic] 1 cap PO DAILY 09/14/17 [History] Levothyroxine [Synthroid] 88 mcg PO DAILY 09/14/17 [History] Metoprolol Succinate [Toprol XL] 25 mg PO BID 09/14/17 [History] Ubidecarenone [Co Q-10] 100 mg PO DAILY 09/14/17 [History] Vit A/Vit C/Vit E/Zinc/Copper [Icaps Areds Formula] 1 cap PO BID 09/14/17 [ History] DULoxetine [Cymbalta] 1 cap PO BID 01/13/18 [History] Aspirin 81 mg PO DAILY 03/17/18 [History] Apixaban [Eliquis] 5 mg PO BID 06/16/18 [History] Mirabegron [Myrbetriq] 25 mg PO DAILY 11/12/18 [History] Past Medical History HEENT History: Reports: Macular Degeneration, Other (See Below) Cardiovascular History: Reports: Afib, Aneurysm, CAD, High Cholesterol, [place] Other Cardiovascular History: resolved after surgery; end of december of last year Respiratory History: Reports: Other (See Below) Other Respiratory History: rib fx Other Gastrointestinal History: during surgery intestine punctured Genitourinary History: Reports: Urinary Incontinence 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 Musculoskeletal History: Reports: Arthritis, Fracture Other Musculoskeletal History: hx of Fractured left side rib Neurological History: Reports: None Psychiatric History: Reports: Anxiety, Depression Endocrine/Metabolic History: Reports: Hypothyroidism Hematologic History: Reports: None Immunologic History: Reports: None Oncologic (Cancer) History: Reports: None Dermatologic History: Reports: None - Infectious Disease History Infectious Disease History: Reports: Chicken Pox - Past Surgical History Head Surgeries/Procedures: Reports: None HEENT Surgical History: Reports: Cataract Surgery Cardiovascular Surgical History: Reports: Coronary Artery Stent, Vascular Surgery, Other (See Below) Other Cardiovascular Surgeries/Procedures: angiogram last week 01/14/18 GI Surgical History: Reports: Cholecystectomy Female Surgical History: Reports: Breast Implant, Hysterectomy, Salpingo- Oophorectomy, Other (See Below) Neurological Surgical History: Reports: None Social & Family History - Family History Family Medical History: Noncontributory - Caffeine Use Caffeine Use: Reports: None - Living Situation & Occupation Living situation: Reports: Occupation: Retired ED ROS GENERAL - Review of Systems Review Of Systems: See Below Constitutional: Reports: Fatigue. Denies: No Symptoms, Fever, Chills HEENT: Reports: No Symptoms Respiratory: Reports: No Symptoms Cardiovascular: Reports: Palpitations. Denies: Chest Pain GI/Abdominal: Reports: No Symptoms : Reports: No Symptoms Neurological: Reports: No Symptoms Psychiatric: Reports: No Symptoms Hematologic/Lymphatic: Reports: No Symptoms Immunologic: Reports: No Symptoms ED EXAM, GENERAL - Physical Exam Exam: See Below Exam Limited By: No Limitations General Appearance: Alert, No Apparent Distress Head: Atraumatic, Normocephalic Neck: Normal Inspection, Supple, Non-Tender, Full Range of Motion. No: Lymphadenopathy (L), Lymphadenopathy (R) Respiratory/Chest: No Respiratory Distress, Lungs Clear, Normal Breath Sounds Cardiovascular: No Murmur, Tachycardia, Irregularly Irregular GI/Abdominal: Normal Bowel Sounds, Soft, Non-Tender Extremities: Pedal Edema (Trace pitting edema this is normal for her) Neurological: Alert, Oriented, Normal Cognition Skin Exam: Warm, Dry, Intact EKG INTERPRETATION EKG Date: 11/12/18 Rhythm: A-Fib Rate (Beats/Min): 120 [place]: Normal QRS: Normal ST-T: Other (Minimal nondiagnostic ST depression V5 6 inverted T waves in aVL this is all stable from January 2018) QT: Normal Comparison: No Change EKG Interpretation Comments: A second EKG was done after she converted to sinus with similar QRS morphology she has a borderline first-degree AV block most nonspecific ST-T wave changes had resolved she still has inverted T's in aVL. Course - Vital Signs Last Recorded V/S: Last Vital Signs Temp 36.8 C 11/12/18 01:27 Pulse 126 H 11/12/18 02:06 Resp 23 H 11/12/18 01:27 BP 108/68 11/12/18 02:06 Pulse Ox 92 L 11/12/18 01:27 - Orders/Labs/Meds Orders: Active Orders 24 hr Category Date Time Status EKG Documentation Completion [RC] ASDIRECTED Care 11/12/18 01:33 Active Diltiazem 125 mg Med 11/12/18 03:45 Active Sodium Chloride 0.9% [Normal Saline] 100 ml IV TITRATE Lactated Ringers [Ringers, Lactated] 1,000 ml Med 11/12/18 01:45 Active IV ASDIRECTED Medication Orders Lactated Ringer's (Ringers, Lactated) 1,000 mls @ 150 mls/hr IV ASDIRECTED JOHNNY Last Infusion: 11/12/18 02:49 Dose: 250 mls/hr Admin: 11/12/18 01:44 Dose: 150 mls/hr Diltiazem HCl 125 mg/ Sodium (Chloride) 125 mls @ 5 mls/hr IV TITRATE JOHNNY; Protocol Last Admin: 11/12/18 03:48 Dose: 5 mg/hr, 5 mls/hr Labs: Laboratory Tests 11/12/18 11/12/18 11/12/18 Range/Units 01:38 01:38 01:38 WBC 9.89 (3.98-10.04) K/mm3 RBC 4.37 (3.98-5.22) M/mm3 Hgb 13.6 (11.2-15.7) gm/L Hct 40.1 (34.1-44.9) % MCV 91.8 (79.4-94.8) fl MCH 31.1 (25.6-32.2) pg MCHC 33.9 (32.2-35.5) g/dl RDW Std Deviation 45.3 (36.4-46.3) fL Plt Count 248 (182-369) K/mm3 MPV 9.9 (9.4-12.3) fl Neutrophils % (Manual) 66 H (40-60) % Band Neutrophils % 0 (0-10) % Lymphocytes % (Manual) 25 (20-40) % Atypical Lymphs % 0 % Monocytes % (Manual) 9 (2-10) % Eosinophils % (Manual) 0 L (0.7-5.8) % Basophils % (Manual) 0 L (0.1-1.2) Platelet Estimate Adequate RBC Morph Comment Normal Sodium 144 (136-145) mEq/L Potassium 3.4 L (3.5-5.1) mEq/L Chloride 106 (98-107) mEq/L Carbon Dioxide 28 (21-32) mEq/L Anion Gap 13.4 (5-15) BUN 26 H (7-18) mg/dL Creatinine 1.1 H (0.55-1.02) mg/dL Est Cr Clr Drug Dosing 34.87 mL/min Estimated GFR (MDRD) 47 (>60) mL/min BUN/Creatinine Ratio 23.6 H (14-18) Glucose 105 (83-115) mg/dL Calcium 9.0 (8.5-10.1) mg/dL Magnesium 1.9 (1.8-2.4) mg/dl Total Bilirubin 1.6 H (0.2-1.0) mg/dL AST 16 (15-37) U/L ALT 16 (14-59) U/L Alkaline Phosphatase 78 (46-116) U/L Troponin I < 0.017 (0.00-0.056) ng/mL Total Protein 6.8 (6.4-8.2) g/dl Albumin 3.5 (3.4-5.0) g/dl Globulin 3.3 gm/dL Albumin/Globulin Ratio 1.1 (1-2) 11/12/18 Range/Units 03:50 WBC (3.98-10.04) K/mm3 RBC (3.98-5.22) M/mm3 Hgb (11.2-15.7) gm/L Hct (34.1-44.9) % MCV (79.4-94.8) fl MCH (25.6-32.2) pg MCHC (32.2-35.5) g/dl RDW Std Deviation (36.4-46.3) fL Plt Count (182-369) K/mm3 MPV (9.4-12.3) fl Neutrophils % (Manual) (40-60) % Band Neutrophils % (0-10) % Lymphocytes % (Manual) (20-40) % Atypical Lymphs % % Monocytes % (Manual) (2-10) % Eosinophils % (Manual) (0.7-5.8) % Basophils % (Manual) (0.1-1.2) Platelet Estimate RBC Morph Comment Sodium (136-145) mEq/L Potassium (3.5-5.1) mEq/L Chloride (98-107) mEq/L Carbon Dioxide (21-32) mEq/L Anion Gap (5-15) BUN (7-18) mg/dL Creatinine (0.55-1.02) mg/dL Est Cr Clr Drug Dosing mL/min Estimated GFR (MDRD) (>60) mL/min BUN/Creatinine Ratio (14-18) Glucose (83-115) mg/dL Calcium (8.5-10.1) mg/dL Magnesium (1.8-2.4) mg/dl Total Bilirubin (0.2-1.0) mg/dL AST (15-37) U/L ALT (14-59) U/L Alkaline Phosphatase (46-116) U/L Troponin I 0.039 (0.00-0.056) ng/mL Total Protein (6.4-8.2) g/dl Albumin (3.4-5.0) g/dl Globulin gm/dL Albumin/Globulin Ratio (1-2) Meds: Medications Generic Name Dose Route Start Last Admin Trade Name Freq PRN Reason Stop Dose Admin Lactated Ringer's 1,000 mls @ 150 mls/hr 11/12/18 01:45 11/12/18 02:49 Ringers, Lactated IV 250 mls/hr ASDIRECTED JOHNNY Infusion Diltiazem HCl 125 mg/ Sodium 125 mls @ 5 mls/hr 11/12/18 03:45 11/12/18 03:48 Chloride IV 5 mg/hr TITRATE JOHNNY 5 mls/hr Administration Protocol 5 MG/HR Discontinued Medications Generic Name Dose Route Start Last Admin Trade Name Freq PRN Reason Stop Dose Admin Diltiazem HCl 10 mg 11/12/18 02:43 11/12/18 02:49 Cardizem IVPUSH 11/12/18 02:44 5 mg ONETIME ONE Administration Diltiazem HCl 5 mg 11/12/18 03:25 11/12/18 03:34 Cardizem IVPUSH 11/12/18 03:26 5 mg ONETIME ONE Administration Metoprolol Tartrate 2.5 mg 11/12/18 01:39 11/12/18 01:43 Lopressor IVPUSH 11/12/18 01:40 2.5 mg ONETIME ONE Administration Metoprolol Tartrate 2.5 mg 11/12/18 01:58 11/12/18 02:06 Lopressor IVPUSH 11/12/18 01:59 2.5 mg ONETIME ONE Administration Potassium Chloride 40 meq 11/12/18 02:45 11/12/18 02:52 Klor-Con M20 PO 11/12/18 02:46 40 meq ONETIME ONE Administration - Re-Assessments/Exams Free Text/Narrative Re-Assessment/Exam: 11/12/18 03:56 Patient was given some IV metoprolol with minimal improvement in the past she's done well on diltiazem week given her couple 5 mg boluses with pretty good success in slowing her rate down to around 100 or just above it at this time were starting a diltiazem drip 5 mg per hour. A second troponin now will be rechecked, initial 1 negative her potassium was low at 3.4 she received 40 mEq of oral potassium 11/12/18 04:03 Patient is cardioverted to sinus rate 60 drip shut off 11/12/18 04:53 Second troponin is negative however the first time it was below the detectable limits now it is 0.039 I did discuss this with the patient and offered to recheck it but they decided to go home. We will ambulate the patient make sure she doesn't have any symptoms from her blood pressure being a little low. Anticipate discharge her soon Departure - Departure Time of Disposition: 05:05 Disposition: Home, Self-Care 01 Clinical Impression: Atrial fibrillation with RVR Referrals: Benoit Long MD [Primary Care Provider] - Forms: ED Department Discharge Additional Instructions: Return to the emergency room with any questions problems worsening symptoms. Continue your current medications. Follow-up with Dr. Long in one week if needed Call your drone software development engineer so he knows you were here. - My Orders Last 24 Hours: My Active Orders 11/12/18 01:33 EKG Documentation Completion [RC] ASDIRECTED 11/12/18 01:45 Lactated Ringers [Ringers, Lactated] 1,000 ml IV ASDIRECTED 11/12/18 03:45 Diltiazem 125 mg Sodium Chloride 0.9% [Normal Saline] 100 ml IV TITRATE - Assessment/Plan Last 24 Hours: My Active Orders 11/12/18 01:33 EKG Documentation Completion [RC] ASDIRECTED 11/12/18 01:45 Lactated Ringers [Ringers, Lactated] 1,000 ml IV ASDIRECTED 11/12/18 03:45 Diltiazem 125 mg Sodium Chloride 0.9% [Normal Saline] 100 ml IV TITRATE
[2018-11-12] MEDS ORDERED: Metoprolol Tartrate 5 MG/5 ML SDV IVPUSH ONE ×2 (01:39→01:58)
[2018-11-12] MEDS ORDERED: Lactated Ringers 1,000 ML IV SCH (01:45)
[2018-11-12 02:06] VITALS: BP 108/68; PULSE 126
[2018-11-12] MEDS ORDERED: Diltiazem 50 MG/10 ML SDV IVPUSH ONE ×2 (02:43→03:25)
[2018-11-12] MEDS ORDERED: Potassium Chloride 20 MEQ Tab.ER PO ONE (02:45)
[2018-11-12] MEDS ORDERED: Diltiazem 125 MG in Sodium Chloride 0.9% 100 ML IV SCH (03:45)
== END 2018-11-12 05:26 | disposition home or self-care (01) ==
LOC: JD.ED 01:21
DX: I48.91 Unspecified atrial fibrillation (principal); F41.9 Anxiety disorder, unspecified; F32.9 Major depressive disorder, single episode, unspecified; Z79.899 Other long term (current) drug therapy; Z79.82 Long term (current) use of aspirin; Z90.49 Acquired absence of other specified parts of digestive tract; Z90.710 Acquired absence of both cervix and uterus; Z90.722 Acquired absence of ovaries, bilateral; Z88.2 Allergy status to sulfonamides
CPT/HCPCS: 36415; 80053; 83735; 84484; 85007; 85027; 93005; 96361; 96365; 96366; 96375; 96376; 99285; A9270; J3490; J7030; J7120; 93010; 99283

== ENCOUNTER 2018-11-18 14:53 | Emergency (ER) | payer MEDICARE, BC ==
[2018-11-18 15:14] VITALS: BP 122/63; PULSE 66
[2018-11-18] MEDS ORDERED: Lidocaine 1% 10 ML MDV INJECT ONE (15:25)
[2018-11-18] MEDS ORDERED: Acetaminophen 325 MG Tab PO ONE (17:15)
--- NOTE | 2018-11-18 17:20 | EDM.PDOC ---
ED HPI GENERAL MEDICAL PROBLEM - General Chief Complaint: Trauma Stated Complaint: FALL/FACIAL INJURIES Time Seen by Provider: 11/18/18 15:13 Source of Information: Reports: Patient, RN Notes Reviewed - History of Present Illness INITIAL COMMENTS - FREE TEXT/NARRATIVE: 82-year-old lady tripped and fell a short time ago. Actually coming here to the hospital either to the clinic or ED to have her knee checked from a fall 2 days ago.She fell again in the parking lot just a short time ago striking her face on the ground with resultant facial contusion, nose laceration. She denies headache or loss of consciousness. She has no nausea or vomiting. No neck or back pain. She is more concerned about her knee then her face or head. She is on eliquis for chronic atrial fib. Nose Pain Score (Numeric/FACES): 9 - Related Data Allergies Allergy/AdvReac Type Severity Reaction Status Date / Time nitrofurantoin Allergy Cannot Verified 11/18/18 15:18 Remember Sulfa (Sulfonamide Allergy Rash Verified 11/18/18 15:14 Antibiotics) Home Meds: Home Meds atorvaSTATin [Lipitor] 10 mg PO DAILY 04/10/17 [History] L.acidoph,Paracasei, B.lactis [Probiotic] 1 cap PO DAILY 09/14/17 [History] Levothyroxine [Synthroid] 88 mcg PO DAILY 09/14/17 [History] Metoprolol Succinate [Toprol XL] 25 mg PO BID 09/14/17 [History] Ubidecarenone [Co Q-10] 100 mg PO DAILY 09/14/17 [History] Vit A/Vit C/Vit E/Zinc/Copper [Icaps Areds Formula] 1 cap PO BID 09/14/17 [ History] DULoxetine [Cymbalta] 1 cap PO BID 01/13/18 [History] Aspirin 81 mg PO DAILY 03/17/18 [History] Apixaban [Eliquis] 5 mg PO BID 06/16/18 [History] Mirabegron [Myrbetriq] 25 mg PO DAILY 11/12/18 [History] Ca Carbonate/Vitamin D3/Vit K [Citracal Soft Chew] 1 tab PO DAILY 11/18/18 [ History] Past Medical History HEENT History: Reports: Macular Degeneration, Other (See Below) Cardiovascular History: Reports: Afib, Aneurysm, CAD, High Cholesterol, [place] Other Cardiovascular History: resolved after surgery; end of december of last year Respiratory History: Reports: Other (See Below) Other Respiratory History: rib fx Other Gastrointestinal History: during surgery intestine punctured Genitourinary History: Reports: Urinary Incontinence [employer] History: Reports: Other [employer] LE[employer] History: x3 Musculoskeletal History: Reports: Arthritis, Fracture Other Musculoskeletal History: hx of Fractured left side rib Neurological History: Reports: None Psychiatric History: Reports: Anxiety, Depression Endocrine/Metabolic History: Reports: Hypothyroidism Hematologic History: Reports: None Immunologic History: Reports: None Oncologic (Cancer) History: Reports: None Dermatologic History: Reports: None - Infectious Disease History Infectious Disease History: Reports: Chicken Pox - Past Surgical History Head Surgeries/Procedures: Reports: None HEENT Surgical History: Reports: Cataract Surgery Cardiovascular Surgical History: Reports: Coronary Artery Stent, Vascular Surgery, Other (See Below) Other Cardiovascular Surgeries/Procedures: angiogram last week 01/14/18 GI Surgical History: Reports: Cholecystectomy Female Surgical History: Reports: Breast Implant, Hysterectomy, Salpingo- Oophorectomy, Other (See Below) Neurological Surgical History: Reports: None Social & Family History - Family History Family Medical History: Noncontributory - Tobacco Use Smoking Status *Q: Never Smoker - Caffeine Use Caffeine Use: Reports: None - Recreational Drug Use Recreational Drug Use: No - Living Situation & Occupation Living situation: Reports: Occupation: Retired Review of Systems - Review of Systems Review Of Systems: See Below Eyes: Reports: No Symptoms Ears: Reports: No Symptoms Nose: Reports: Other (small laceration bridge of nose) Mouth/Throat: Reports: No Symptoms Respiratory: Denies: Shortness of Breath, Pleuritic Chest Pain Cardiovascular: Denies: Chest Pain GI/Abdominal: Denies: Abdominal Pain, Nausea, Vomiting Musculoskeletal: Reports: Joint Pain (R knee) Skin: Reports: Bruising (large bruise R knee) Neurological: Denies: Headache (no Casillas at time of initial eval), Numbness, Tingling, Weakness ED EXAM, GENERAL - Physical Exam Exam: See Below General Appearance: Alert, No Apparent Distress Eye Exam: Bilateral Eye: PERRL Ears: Normal External Exam Nose: Other (small but moderately deep lac bridge of nose, nose nontender, no visible deformity, no bleeding from nares) Throat/Mouth: Normal Inspection, Normal Oropharynx Head: Other (small area of erythema upper forehead, no bony tenderness of face or head) Respiratory/Chest: No Respiratory Distress, Lungs Clear, Normal Breath Sounds Cardiovascular: Regular Rate, Rhythm Back Exam: No: Paraspinal Tenderness, Vertebral Tenderness Extremities: Normal Inspection, Normal Range of Motion, Non-Tender Neurological: Alert, Oriented, No Motor/Sensory Deficits Skin Exam: Warm, Dry, Normal Color ED TRAUMA PROCEDURES - Laceration/Wound Repair Anterior Nose Lac/Wound Length In cm: 0.5 Distal NVT: Neuro & Vascular Intact Anesthetic Type: Local Local Anesthesia - Lidocaine (Xylocaine): 1% Plain Skin Prep: Saline Suture Size: 4-0 # of Sutures: 2 Suture Type: Nylon Course - Vital Signs Last Recorded V/S: Last Vital Signs Temp 99.5 F 11/18/18 15:09 Pulse 66 11/18/18 15:09 Resp 19 11/18/18 15:09 BP 122/63 11/18/18 15:09 Pulse Ox 93 L 11/18/18 15:09 - Orders/Labs/Meds Meds: Medications Discontinued Medications Generic Name Dose Route Start Last Admin Trade Name Finn PRN Reason Stop Dose Admin Acetaminophen 975 mg 11/18/18 17:15 11/18/18 17:33 Tylenol PO 11/18/18 17:16 975 mg NOW ONE Administration Lidocaine HCl 10 ml 11/18/18 15:25 11/18/18 15:36 Xylocaine 1% INJECT 11/18/18 15:26 10 ml ONETIME ONE Administration - Re-Assessments/Exams Free Text/Narrative Re-Assessment/Exam: 11/18/18 17:19 X-rays of knee are negative for fracture. She does have a nasty hematoma inferior aspect of knee. Plan to put a few sutures to repair nasal laceration. she now has mild Casillas, Alert, answering questions appropriately. No neurologic deficit. Will check head CT due to being on eliquis. She must have fallen hard with consideration of major hematom R just below R knee 11/18/18 19:05. CT of head looks good, still waiting radiology report but with CT having normal appearance, no blood plan to let her go home at this time. Departure - Departure Time of Disposition: 18:03 Disposition: Home, Self-Care 01 Condition: Fair Clinical Impression: Fall Qualifiers: Encounter type: initial encounter Qualified Code(s): W19.XXXA - Unspecified fall, initial encounter Forehead contusion Qualifiers: Encounter type: initial encounter Qualified Code(s): S00.83XA - Contusion of other part of head, initial encounter Knee contusion Qualifiers: Encounter type: initial encounter Laterality: right Qualified Code(s): S80.01XA - Contusion of right knee, initial encounter Nasal laceration Qualifiers: Encounter type: initial encounter Qualified Code(s): S01.21XA - Laceration without foreign body of nose, initial encounter - Discharge Information Instructions: Contusion, [id number] Referrals: Benoit Long MD [Primary Care Provider] - Forms: ED Department Discharge Additional Instructions: Jv wrap right knee, use your walker for now to help you with your walking and with your balance so you do not have another fall., Ice packs and elevation for swelling and hematoma right knee. Tylenol every 6-8 hours if needed for pain. See Dr. Long at clinic in 2-3 days for recheck, call tomorrow morning for appointment, return to ED as needed if symptoms worsening in any way.
--- NOTE | 2018-11-18 19:16 | CT ---
Head CT Technique: Multiple axial sections through the brain were obtained. Intravenous contrast was not utilized. Comparison: No prior intracranial imaging is available. Findings: Ventricles along with basal cisterns and sulci over the convexities are moderately prominent. Diminished density is noted within the periventricular and subcortical white matter which is compatible with small vessel ischemic demyelination change. Several old lacunar infarcts are noted within the basal ganglia. Atherosclerotic calcification is seen within the vertebral vessels and carotid siphon. No evidence of intracranial hemorrhage. No midline shift or mass effect is seen. Bone window settings were reviewed which show the visualized mastoid sinuses and paranasal sinuses to appear clear. No acute calvarial abnormality is seen. Impression: 1. Senescent change as noted above. No acute intracranial abnormality is appreciated on noncontrast head CT exam. Diagnostic code #2
--- NOTE | 2018-11-19 09:40 | CR ---
Right knee: Four views of the right knee were obtained. Comparison: No prior right knee exam. Mild to moderate medial joint space narrowing is seen. Slight osteophytes are noted off the medial joint. Lateral joint space is preserved. Small osteophyte is noted off the patella. Osteopenia is noted. No joint effusion is seen. Mild vascular calcification is noted. Impression: 1. Degenerative change and other findings as noted above. 2. Nothing acute is appreciated on right knee exam. Diagnostic code #2
== END 2018-11-18 19:34 | disposition home or self-care (01) ==
LOC: JD.ED 14:53
DX: S01.21XA Laceration without foreign body of nose, initial encounter (principal); S80.01XA Contusion of right knee, initial encounter; W01.198A Fall on same level from slipping, tripping and stumbling with subsequent striking against other object, initial encounter; Z79.01 Long term (current) use of anticoagulants; Z88.2 Allergy status to sulfonamides; Z88.8 Allergy status to other drugs, medicaments and biological substances; Z79.899 Other long term (current) drug therapy; Z79.82 Long term (current) use of aspirin
CPT/HCPCS: 12011; 70450; 73564; 99284; A9270; J2001; 12001; 99282

== ENCOUNTER 2021-06-21 01:25 | Inpatient (IN) | payer MEDICARE, BC ==
[2021-06-21] MEDS ORDERED: HYDROmorphone 0.5 MG/0.5 ML Syringe IVPUSH ONE ×2 (01:46→07:22)
[2021-06-21] MEDS ORDERED: Lactated Ringers 1,000 ML IV SCH (03:30)
[2021-06-21] MEDS ORDERED: Ondansetron 4 MG/2 ML SDV IV PRN (08:08)
[2021-06-21] MEDS ORDERED: Levothyroxine 88 MCG Tab PO SCH (09:00)
[2021-06-21] MEDS: Acetaminophen/oxyCODONE 325-5 MG Tab PO PRN ×2 (10:13→14:37)
[2021-06-21] MEDS: HYDROmorphone 0.5 MG/0.5 ML Syringe IVPUSH PRN ×2 (10:15→22:22)
[2021-06-21] MEDS: Polyethylene Glycol 3350 Powder 17 GM Packet PO PRN (11:46)
[2021-06-21] MEDS: Magnesium Oxide 400 MG Tab PO SCH (11:47)
[2021-06-21] MEDS: Metoprolol Succinate 25 MG Tab.ER PO SCH ×2 (11:47→21:12)
[2021-06-21] MEDS: Calcium Carbonate 500 MG Tab.Chew PO SCH ×3 (11:50→21:13)
[2021-06-21] MEDS: Cholecalciferol (Vitamin D3) 25 MCG Tab PO SCH (11:51)
[2021-06-21] MEDS: Saccharomyces Boulardii (Probiotic) 250 MG Cap PO SCH (11:51)
[2021-06-21] MEDS: DULoxetine 30 MG Cap PO SCH ×2 (11:51→21:12)
[2021-06-21] MEDS: atorvaSTATin 20 MG Tab PO SCH (11:51)
[2021-06-21] MEDS: Docusate Sodium 100 MG Cap PO SCH ×2 (11:52→21:13)
[2021-06-21] MEDS: Heparin Sodium 5,000 Units/ML Vial SUBCUT SCH (21:13)
[2021-06-22] MEDS: Acetaminophen/oxyCODONE 325-5 MG Tab PO PRN ×5 (01:22→21:17)
[2021-06-22] MEDS: Heparin Sodium 5,000 Units/ML Vial SUBCUT SCH ×4 (05:41→21:13)
[2021-06-22] MEDS: Levothyroxine 100 MCG Tab PO SCH (05:41)
[2021-06-22] MEDS: Metoprolol Succinate 25 MG Tab.ER PO SCH ×2 (08:00→21:13)
[2021-06-22] MEDS: atorvaSTATin 20 MG Tab PO SCH (08:01)
[2021-06-22] MEDS: Cholecalciferol (Vitamin D3) 25 MCG Tab PO SCH (08:02)
[2021-06-22] MEDS: DULoxetine 30 MG Cap PO SCH ×2 (08:02→21:13)
[2021-06-22] MEDS: Calcium Carbonate 500 MG Tab.Chew PO SCH ×3 (08:03→21:13)
[2021-06-22] MEDS: Magnesium Oxide 400 MG Tab PO SCH (08:03)
[2021-06-22] MEDS: Docusate Sodium 100 MG Cap PO SCH ×2 (08:03→21:13)
[2021-06-22] MEDS: Saccharomyces Boulardii (Probiotic) 250 MG Cap PO SCH (08:03)
[2021-06-22] MEDS: cefTRIAXone 2 GM in Sodium Chloride 0.9% 100 ML IV SCH (08:11)
[2021-06-22] MEDS ORDERED: Benzocaine/Cetylpyridinium/Menthol Lozenge MUCMEM PRN (09:35)
[2021-06-23] MEDS: Heparin Sodium 5,000 Units/ML Vial SUBCUT SCH ×2 (04:27→18:16)
[2021-06-23] MEDS: Levothyroxine 100 MCG Tab PO SCH (05:40)
[2021-06-23] MEDS: HYDROmorphone 0.5 MG/0.5 ML Syringe IVPUSH PRN ×4 (06:08→19:21)
[2021-06-23] MEDS: cefTRIAXone 2 GM in Sodium Chloride 0.9% 100 ML IV SCH (08:10)
[2021-06-23] MEDS: Metoprolol Succinate 25 MG Tab.ER PO SCH ×2 (08:10→21:04)
[2021-06-23] MEDS ORDERED: Bupivacaine 0.25% 10 ML SDV ONE (10:08)
[2021-06-23] MEDS: Acetaminophen/oxyCODONE 325-5 MG Tab PO PRN ×3 (10:17→23:10)
[2021-06-23] MEDS ORDERED: Lactated Ringers 1,000 ML IV ONE (10:20)
[2021-06-23] MEDS ORDERED: fentaNYL 100 MCG/2 ML SDV ONE (10:23)
[2021-06-23] MEDS ORDERED: Lidocaine 1% 4 ML ONE (10:24)
[2021-06-23] MEDS ORDERED: Propofol 200 MG/20 ML SDV ONE (10:24)
[2021-06-23] MEDS ORDERED: ePHEDrine 50 MG/ML SDV ONE (11:01)
[2021-06-23] MEDS ORDERED: Lactated Ringers 1,000 ML ONE (11:26)
[2021-06-23] MEDS ORDERED: ceFAZolin 1 GM Vial ONE (11:32)
[2021-06-23] MEDS ORDERED: Ondansetron 4 MG/2 ML SDV ONE (12:31)
[2021-06-23] MEDS ORDERED: fentaNYL 100 MCG/2 ML SDV IVPUSH PRN (13:09)
[2021-06-23] MEDS ORDERED: Ondansetron 4 MG/2 ML SDV IVPUSH PRN (13:09)
[2021-06-23] MEDS ORDERED: ceFAZolin 2 GM in Premix Bag 1 BAG IV SCH (13:15)
[2021-06-23] MEDS: Magnesium Oxide 400 MG Tab PO SCH (15:43)
[2021-06-23] MEDS: DULoxetine 30 MG Cap PO SCH ×2 (15:43→21:04)
[2021-06-23] MEDS: Docusate Sodium 100 MG Cap PO SCH ×2 (15:43→21:06)
[2021-06-23] MEDS: Calcium Carbonate 500 MG Tab.Chew PO SCH ×3 (15:43→21:04)
[2021-06-23] MEDS: atorvaSTATin 20 MG Tab PO SCH (15:43)
[2021-06-23] MEDS: Saccharomyces Boulardii (Probiotic) 250 MG Cap PO SCH (15:43)
[2021-06-23] MEDS: Cholecalciferol (Vitamin D3) 25 MCG Tab PO SCH (15:44)
[2021-06-23] MEDS ORDERED: Diltiazem 100 MG in Sodium Chloride 0.9% 100 ML IV SCH (20:15)
[2021-06-23] MEDS ORDERED: Diltiazem 50 MG/10 ML SDV IVPUSH STA (20:24)
[2021-06-23] MEDS ORDERED: Sodium Chloride 0.9% 1,000 ML IV SCH (20:30)
[2021-06-23] MEDS: Sodium Chloride 0.9% 1,000 ML IV SCH (20:42)
[2021-06-23] MEDS ORDERED: Diltiazem 50 MG/10 ML SDV IVPUSH ONE (23:00)
[2021-06-24] MEDS: HYDROmorphone 0.5 MG/0.5 ML Syringe IVPUSH PRN (00:36)
[2021-06-24] MEDS ORDERED: Lactated Ringers 500 ML IV ONE (02:07)
[2021-06-24] MEDS: Levothyroxine 100 MCG Tab PO SCH (05:28)
[2021-06-24] MEDS: cefTRIAXone 2 GM in Sodium Chloride 0.9% 100 ML IV SCH (08:05)
[2021-06-24] MEDS: atorvaSTATin 20 MG Tab PO SCH (08:08)
[2021-06-24] MEDS: Cholecalciferol (Vitamin D3) 25 MCG Tab PO SCH (08:08)
[2021-06-24] MEDS: Saccharomyces Boulardii (Probiotic) 250 MG Cap PO SCH (08:08)
[2021-06-24] MEDS: DULoxetine 30 MG Cap PO SCH ×2 (08:08→20:33)
[2021-06-24] MEDS: Calcium Carbonate 500 MG Tab.Chew PO SCH ×3 (08:09→20:33)
[2021-06-24] MEDS: Metoprolol Succinate 25 MG Tab.ER PO SCH ×2 (08:09→20:33)
[2021-06-24] MEDS: Apixaban 5 MG Tab PO SCH ×2 (08:09→20:33)
[2021-06-24] MEDS: Magnesium Oxide 400 MG Tab PO SCH (08:09)
[2021-06-24] MEDS: Aspirin 81 MG Tab.Chew PO SCH (08:09)
[2021-06-24] MEDS: Docusate Sodium 100 MG Cap PO SCH ×2 (08:09→20:33)
[2021-06-24] MEDS: Acetaminophen/oxyCODONE 325-5 MG Tab PO PRN (08:50)
[2021-06-24] MEDS: Sodium Chloride 0.9% 1,000 ML IV SCH ×2 (08:54→23:37)
[2021-06-24] MEDS: Polyethylene Glycol 3350 Powder 17 GM Packet PO PRN (16:31)
[2021-06-25] MEDS: Levothyroxine 100 MCG Tab PO SCH (05:40)
[2021-06-25] MEDS: Acetaminophen/oxyCODONE 325-5 MG Tab PO PRN ×2 (05:40→21:14)
[2021-06-25] MEDS ORDERED: Acetaminophen 325 MG Tab PO ONE (07:43)
[2021-06-25] MEDS ORDERED: Furosemide 40 MG/4 ML VIAL IVPUSH ONE (07:43)
[2021-06-25] MEDS ORDERED: diphenhydrAMINE 50 MG/ML SDV IV ONE (07:43)
[2021-06-25] MEDS: cefTRIAXone 2 GM in Sodium Chloride 0.9% 100 ML IV SCH (08:23)
[2021-06-25] MEDS: Aspirin 81 MG Tab.Chew PO SCH (08:24)
[2021-06-25] MEDS: Metoprolol Succinate 25 MG Tab.ER PO SCH ×2 (08:24→20:08)
[2021-06-25] MEDS: Docusate Sodium 100 MG Cap PO SCH ×2 (08:24→20:09)
[2021-06-25] MEDS: Saccharomyces Boulardii (Probiotic) 250 MG Cap PO SCH (08:26)
[2021-06-25] MEDS: Calcium Carbonate 500 MG Tab.Chew PO SCH ×3 (08:26→20:08)
[2021-06-25] MEDS: DULoxetine 30 MG Cap PO SCH ×2 (08:26→20:09)
[2021-06-25] MEDS: Cholecalciferol (Vitamin D3) 25 MCG Tab PO SCH (08:26)
[2021-06-25] MEDS: Magnesium Oxide 400 MG Tab PO SCH (08:26)
[2021-06-25] MEDS: atorvaSTATin 20 MG Tab PO SCH (08:26)
[2021-06-25] MEDS ORDERED: Sodium Chloride 0.9% 250 ML IV SCH (10:00)
[2021-06-25] MEDS: traZODone 50 MG Tab PO PRN (23:48)
[2021-06-26] MEDS: Levothyroxine 100 MCG Tab PO SCH (05:44)
[2021-06-26] MEDS: atorvaSTATin 20 MG Tab PO SCH (08:01)
[2021-06-26] MEDS: Saccharomyces Boulardii (Probiotic) 250 MG Cap PO SCH (08:01)
[2021-06-26] MEDS: DULoxetine 30 MG Cap PO SCH ×2 (08:01→20:06)
[2021-06-26] MEDS: Calcium Carbonate 500 MG Tab.Chew PO SCH ×3 (08:01→20:06)
[2021-06-26] MEDS: Aspirin 81 MG Tab.Chew PO SCH (08:01)
[2021-06-26] MEDS: Magnesium Oxide 400 MG Tab PO SCH (08:01)
[2021-06-26] MEDS: Acetaminophen/oxyCODONE 325-5 MG Tab PO PRN ×2 (08:01→21:39)
[2021-06-26] MEDS: Cholecalciferol (Vitamin D3) 25 MCG Tab PO SCH (08:01)
[2021-06-26] MEDS: Metoprolol Succinate 25 MG Tab.ER PO SCH ×2 (08:01→20:06)
[2021-06-26] MEDS: cefTRIAXone 2 GM in Sodium Chloride 0.9% 100 ML IV SCH (08:02)
[2021-06-26] MEDS: Docusate Sodium 100 MG Cap PO SCH ×2 (08:06→20:06)
[2021-06-26] MEDS: Apixaban 5 MG Tab PO SCH ×2 (09:40→20:06)
[2021-06-26] MEDS: HYDROmorphone 0.5 MG/0.5 ML Syringe IVPUSH PRN (19:44)
[2021-06-26] MEDS: traZODone 50 MG Tab PO PRN (21:46)
[2021-06-27] MEDS: Levothyroxine 100 MCG Tab PO SCH (06:11)
[2021-06-27] MEDS: cefTRIAXone 2 GM in Sodium Chloride 0.9% 100 ML IV SCH (08:01)
[2021-06-27] MEDS: Calcium Carbonate 500 MG Tab.Chew PO SCH (08:03)
[2021-06-27] MEDS: Cholecalciferol (Vitamin D3) 25 MCG Tab PO SCH (08:03)
[2021-06-27] MEDS: Docusate Sodium 100 MG Cap PO SCH (08:03)
[2021-06-27] MEDS: Metoprolol Succinate 25 MG Tab.ER PO SCH (08:03)
[2021-06-27] MEDS: Saccharomyces Boulardii (Probiotic) 250 MG Cap PO SCH (08:04)
[2021-06-27] MEDS: Apixaban 5 MG Tab PO SCH (08:04)
[2021-06-27] MEDS: Acetaminophen/oxyCODONE 325-5 MG Tab PO PRN ×2 (08:04→11:50)
[2021-06-27] MEDS: Aspirin 81 MG Tab.Chew PO SCH (08:04)
[2021-06-27] MEDS: Magnesium Oxide 400 MG Tab PO SCH (08:04)
[2021-06-27 08:05] VITALS: PULSE 67
[2021-06-27] MEDS: atorvaSTATin 20 MG Tab PO SCH (08:05)
[2021-06-27] MEDS: DULoxetine 30 MG Cap PO SCH (08:06)
[2021-06-27] MEDS ORDERED: Potassium Bicarbonate/Cit Ac 20 MEQ Effervescent Tab PO ONE (09:41)
[2021-06-27 11:26] VITALS: BP 121/57
== END 2021-06-27 12:30 | DRG 481 ==
LOC: JD.ED 01:25 → JD.MS 08:02 → JD.ICU 06-23 20:07
PROVIDERS: ADMIT Internal Medicine; ATTEND Internal Medicine
PROC: 0QS736Z Reposition Left Upper Femur with Intramedullary Internal Fixation Device, Percutaneous Approach (ICD-10-PCS; principal; 2021-06-23)
DX: S72.092A Other fracture of head and neck of left femur, initial encounter for closed fracture (principal); S72.142A Displaced intertrochanteric fracture of left femur, initial encounter for closed fracture; D62 Acute posthemorrhagic anemia; I48.20 Chronic atrial fibrillation, unspecified; N30.00 Acute cystitis without hematuria; S72.22XA Displaced subtrochanteric fracture of left femur, initial encounter for closed fracture; H35.30 Unspecified macular degeneration; S00.81XA Abrasion of other part of head, initial encounter; M19.90 Unspecified osteoarthritis, unspecified site; R41.0 Disorientation, unspecified; I25.10 Atherosclerotic heart disease of native coronary artery without angina pectoris; Z20.822 Contact with and (suspected) exposure to COVID-19; E78.5 Hyperlipidemia, unspecified; F41.9 Anxiety disorder, unspecified; Z79.890 Hormone replacement therapy; I73.9 Peripheral vascular disease, unspecified; F32.A Depression, unspecified; E03.9 Hypothyroidism, unspecified; B96.20 Unspecified Escherichia coli [E. coli] as the cause of diseases classified elsewhere; H57.12 Ocular pain, left eye; I48.0 Paroxysmal atrial fibrillation; K59.00 Constipation, unspecified; R09.02 Hypoxemia; E78.00 Pure hypercholesterolemia, unspecified; R32 Unspecified urinary incontinence; I72.9 Aneurysm of unspecified site; I25.2 Old myocardial infarction; Z90.49 Acquired absence of other specified parts of digestive tract; Z79.01 Long term (current) use of anticoagulants; Z79.82 Long term (current) use of aspirin; Z79.899 Other long term (current) drug therapy; Z88.2 Allergy status to sulfonamides; Z88.8 Allergy status to other drugs, medicaments and biological substances; Z95.5 Presence of coronary angioplasty implant and graft; W19.XXXA Unspecified fall, initial encounter; Y99.8 Other external cause status; Y93.89 Activity, other specified; Y92.009 Unspecified place in unspecified non-institutional (private) residence as the place of occurrence of the external cause
CPT/HCPCS: 36415; 70450 ×2; 73502; 80053; 84443; 84484; 85014; 85018; 85025; 85610; 85730; 86850; 86900; 86901; 93005; 96374; 96376; 99285; J1170 ×2; J7120; U0002; 01230; 36410; 36430; 70551; 70551-26; 71045; 71045-26; 76000; 76000-26; 81001; 83735; 86922; 87040; 87086; 87088; 87186; 87641; 93010; 94761; 97110-GP; 97116-GP; 97161-GP; 99222; 99233; 99239; 99284; A9270-GY; C1713; J0690; J0696; J1644; J1940; J2370; J2405; J2704; J3010; J3490; J7030; J7050; P9016

== ENCOUNTER 2022-10-15 12:16 | Emergency (ER) | payer MEDICARE, BC ==
[2022-10-15] MEDS ORDERED: Sodium Chloride 0.9% 10 ML Syringe FLUSH PRN (12:43)
[2022-10-15] MEDS ORDERED: Sodium Chloride 0.9% 1,000 ML IV SCH (13:00)
[2022-10-15 13:09] LABS: HEMATOCRIT 46.5 % (34.1-44.9); HEMOGLOBIN 15.4 gm/dl (11.2-15.7); MEAN CORPUSCULAR HEMOGLOBIN 31.2 pg (25.6-32.2); MEAN CORPUSCULAR HGB CONC 33.1 g/dl (32.2-35.5); MEAN CORPUSCULAR VOLUME 94.1 fl (79.4-94.8); MEAN PLATELET VOLUME 10.1 fl (9.4-12.3); PLATELET COUNT,PLT 303 K/mm3 (182-369); RED BLOOD CELL COUNT 4.94 M/mm3 (3.98-5.22); WHITE BLOOD CELL COUNT,WBC 9.29 K/mm3 (3.98-10.04)
[2022-10-15 13:14] LABS: INR 1.07; PROTHROMBIN TIME 11.4 SECONDS (9.7-12.0)
[2022-10-15 13:16] LABS: PTT,PARTIAL THROMBOPLSTIN TIME 29.4 SECONDS (21.7-31.4)
[2022-10-15 13:19] LABS: D-DIMER QUANTITATIVE 0.98 mg/L (0.19-0.50)
[2022-10-15] MEDS ORDERED: Morphine 2 MG/ML SYRINGE IVPUSH ONE (13:22)
[2022-10-15 13:26] LABS: A/G RATIO 0.9 (1-2); ALANINE AMINOTRANSFERASE,ALT 14 U/L (14-59); ALBUMIN 3.7 g/dl (3.4-5.0); ALKALINE PHOSPHATASE 99 U/L (46-116); ANION GAP 12.6 (5-15); ASPARTATE AMNIOTRANSFERASE,AST 21 U/L (15-37); BILIRUBIN TOTAL 1.8 mg/dL (0.2-1.0); BLOOD UREA NITROGEN,BUN 14 mg/dL (7-18); BUN/CREATININE RATIO 15.6 (14-18); C-REACTIVE PROTEIN <0.2 mg/dL (<1.0); CALCIUM 9.1 mg/dL (8.5-10.1); CARBON DIOXIDE,CO2 28 mEq/L (21-32); CHLORIDE,CL 106 mEq/L (98-107); CREATININE 0.9 mg/dL (0.55-1.02); ESTIMATED GFR 62 mL/min (>60); GLUCOSE RANDOM 122 mg/dL (70-99); MAGNESIUM 1.9 mg/dL (1.8-2.4); POTASSIUM,K 3.6 mEq/L (3.5-5.1); PROTEIN TOTAL,TP 7.7 g/dl (6.4-8.2); SODIUM,NA 143 mEq/L (136-145); TROPONIN I HIGH SENSITIVITY 8 pg/mL (<=51); TSH 1.153 uIU/mL (0.358-3.74)
[2022-10-15 14:16] LABS: BAND PERCENT MAN 0 % (0-10); BASOPHILS PERCENT MAN 2 (0.1-1.2); EOSINOPHILS PERCENT MAN 3 % (0.7-5.8); LYMPHOCYTES % ATYPICAL MANUAL 0 %; LYMPHOCYTES PERCENT MAN 25 % (20-40); MONOCYTES PERCENT MAN 8 % (2-10)
[2022-10-15 14:17] LABS: PLATELET COUNT ESTIMATE ADEQUATE
[2022-10-15 15:04] VITALS: BP 202/127; PULSE 128
== END 2022-10-15 16:17 | disposition expired ==
LOC: JD.ED 12:16
DX: I62.9 Nontraumatic intracranial hemorrhage, unspecified (principal); E03.9 Hypothyroidism, unspecified; I25.10 Atherosclerotic heart disease of native coronary artery without angina pectoris; I48.91 Unspecified atrial fibrillation; I25.2 Old myocardial infarction; Z79.899 Other long term (current) drug therapy; Z88.2 Allergy status to sulfonamides; Z88.8 Allergy status to other drugs, medicaments and biological substances
CPT/HCPCS: 36415; 70450; 70450-26; 80053; 82947; 83735; 84443; 84484; 85007; 85027; 85379; 85610; 85730; 86140; 93005; 93010; 99285